=== PATIENT | male | born 1935 | race American Indian/Alaskan Native ===

== ENCOUNTER 2016-12-11 19:44 | Inpatient (IN) | payer MEDICARE, OTHER ==
[2016-12-11 20:18] VITALS: BMI 23.7
[2016-12-11 21:03] LABS: ADD MANUAL DIFF? NO
[2016-12-11] MEDS: Sodium Chloride 0.9% 1,000 ML IV SCH (21:04)
[2016-12-11 21:16] LABS: BILIRUBIN,TOTAL 0.7 mg/dL (0.2-1.3); CALCIUM 9.9 mg/dL (8.4-10.5); POTASSIUM 4.3 mmol/L (3.6-5.0); TOTAL PROTEIN 8.2 g/dL (5.8-8.3)
[2016-12-11] MEDS ORDERED: TraMADol/Apap 37.5/325 mg Tab PO STA (21:20)
[2016-12-11 21:28] LABS: BASO # 0.02 K/mm3 (0.0-2.0); BASO % 0.5 % (0.0-3.0); EOS # 0.1 (0.0-0.7); EOS % 1.3 % (1.5-5.0); GRAN # 2.54 (1.4-6.5); GRAN % 67.8 % (50.0-68.0); LYMPH # 0.9 (1.2-3.4); LYMPH % 22.7 % (22.0-35.0); MEAN CELL VOLUME 81.5 fL (80.0-105.0); MEAN CORPUSCULAR HEMOGLOBIN 26.9 pg (25.0-35.0); MEAN CORPUSCULAR HGB CONC 32.9 g/dl (31.0-37.0); MEAN PLATELET VOLUME 9.3 fl (7.0-11.0); MONO # 0.3 (0.1-0.6); MONO % 7.7 % (1.0-6.0); PLATELET COUNT 296 10^3/uL (120.0-450.0); RED CELL DISTRIBUTION WIDTH 15.4 % (11.5-14.5); TROPONIN I 0.02 ng/mL; WHITE BLOOD COUNT 3.8 10^3/ul (4.5-11.0)
--- NOTE | 2016-12-11 23:39 | ED PDOC ---
Arrival/HPI - General Chief Complaint: Pain, Chronic Time Seen by Provider: 12/11/16 19:51 Historian: Patient - History of Present Illness Narrative History of Present Illness (Text): 12/11/16 23:36 Abel Keller is a 81 year old male, whose past medical history includes hypertension, diabetes, CAD and arthritis, presents to the emergency department complaining of generalized weakness and decreased appetite for past 4 days. Patient also complains of arthritic shoulder and back pain. Denies any fever, chills, headache, dizziness, chest pain, difficulty breathing, nausea, vomiting , diarrhea, urinary symptoms, or any other complaints at this time. Time/Duration: < week (4 days ) Symptom Onset: Gradual Symptom Course: Unchanged Severity Level: Mild Context: Home Past Medical History - Provider Review Nursing Documentation Reviewed: Yes - Cardiac Hx Cardiac Disorders: Yes Hx Hypertension: Yes - Pulmonary Hx Respiratory Disorders: No - Neurological Hx Neurological Disorder: No - HEENT Hx HEENT Disorder: No - Renal Hx Renal Disorder: No - Endocrine/Metabolic Hx Endocrine Disorders: Yes Hx Diabetes Mellitus Type 2: Yes - Hematological/Oncological Hx Blood Disorders: No - Integumentary Hx Dermatological Disorder: No - Musculoskeletal/Rheumatological Hx Musculoskeletal Disorders: Yes Hx Arthritis: Yes - Gastrointestinal Hx Gastrointestinal Disorders: No - Genitourinary/Gynecological Hx Genitourinary Disorders: No - Psychiatric Hx Psychophysiologic Disorder: No Hx Substance Use: Yes - Anesthesia Hx Anesthesia: No Family/Social History - Physician Review Nursing Documentation Reviewed: Yes Family/Social History: No Known Family HX Smoking Status: Former Smoker Hx Alcohol Use: No Hx Substance Use: Yes Allergies/Home Meds Allergies/Adverse Reactions: Allergies No Known Allergies Allergy (Verified 12/11/16 20:07) Home Medications: Home Meds Medication Instructions Recorded Confirmed Atorvastatin Calcium 20 mg PO DAILY 12/11/16 12/11/16 Febuxostat [Uloric] 40 mg PO DAILY 12/11/16 12/11/16 Ferric Citrate [Auryxia] 210 mg PO DIN 12/11/16 12/11/16 Ferrous Sulfate [Feosol] 325 mg PO BID 12/11/16 12/11/16 Insulin Glargine,Hum.rec.anlog 300 unit SQ TID 12/11/16 12/11/16 [Beau Cavanaugh] Insulin Lispro [Humalog (Insulin 100 unit SQ TID 12/11/16 12/11/16 Lispro)] SITagliptin [Januvia] 25 mg PO DAILY 12/11/16 12/11/16 Sodium Bicarbonate Tab 650 mg PO DAILY 12/11/16 12/11/16 hydrALAZINE [hydralazine 10 mg PO BID 12/11/16 12/11/16 Hydrochloride] Review of Systems - Physician Review All systems were reviewed & negative as marked: Yes - Review of Systems Constitutional: Fatigue (generalized weakness ). absent: Fevers Respiratory: Normal. absent: SOB, Cough Cardiovascular: Normal. absent: Chest Pain, Palpitations Musculoskeletal: Arthralgias, Back Pain Neurological: Normal. absent: Headache, Dizziness Psychiatric: Normal Physical Exam Vital Signs Reviewed: Yes Vital Signs Temp Pulse Resp BP Pulse Ox 12/11/16 23:00 98.2 F 66 17 140/58 L 98 12/11/16 20:02 98.0 F 68 17 130/60 98 Temperature: Afebrile Blood Pressure: Normal Pulse: Regular Respiratory Rate: Normal Appearance: Positive for: Well-Appearing, Non-Toxic, Comfortable Pain Distress: None Mental Status: Positive for: Alert and Oriented X 3 Finger Stick Blood Glucose: 240 - Systems Exam Head: Present: Atraumatic, Normocephalic Pupils: Present: PERRL Extroacular Muscles: Present: EOMI Conjunctiva: Present: Normal Mouth: Present: Moist Mucous Membranes Neck: Present: Normal Range of Motion Respiratory/Chest: Present: Clear to Auscultation, Good Air Exchange. No: Respiratory Distress, Accessory Muscle Use Cardiovascular: Present: Regular Rate and Rhythm, Normal S1, S2. No: Murmurs Abdomen: Present: Normal Bowel Sounds. No: Tenderness, Distention, Peritoneal Signs Back: Present: Normal Inspection Upper Extremity: Present: Normal Inspection. No: Cyanosis, Edema Lower Extremity: Present: Normal Inspection. No: Edema Neurological: Present: GCS=15, CN II-XII Intact, Speech Normal Skin: Present: Warm, Dry, Normal Color. No: Rashes Psychiatric: Present: Alert, Oriented x 3, Normal Insight, Normal Concentration Medical Decision Making ED Course and Treatment: 12/11/16 23:41 Impression: A 81 year old male who presents to the emergency department complaining of generalized weakness, arthritic pain and decreased appetite for past 4 days. Plan: -- EKG -- Labs -- Chest X-ray -- IV fluids -- Ultracet -- Urinalysis -- Reassess and disposition Progress Notes: 12/11/16 23:42 Case discussed with who is aware and agrees with the plan to observe patient at Med/Surg for dehydration. Accepts patient under her service. 12/12/16 02:02 EKG reviewed by me: NSR @ 62 bpm.T wave abnormality, consider inferolateral ischemia. - Lab Interpretations Lab Results: 12/11/16 21:00 12/11/16 21:00 Lab Results 12/12/16 11:19: POC Glucose (mg/dL) > 500 H* 12/12/16 10:02: POC Glucose (mg/dL) > 500 H* 12/12/16 07:47: POC Glucose (mg/dL) > 500 H* 12/12/16 07:00: Hemoglobin A1c 9.7 H 12/12/16 07:00: Iron 56, TIBC 214 L, % Saturation 26 12/12/16 07:00: Triglycerides 98, Cholesterol 182, LDL Cholesterol Direct 77, HDL Cholesterol 63 H, Folate 9.1 12/11/16 21:00: Sodium 137, Potassium 4.3, Chloride 98, Carbon Dioxide 31, Anion Gap 12, BUN 43 H, Creatinine 1.8 H, Est GFR ( Amer) 44, Est GFR ( Non-Af Amer) 37, Random Glucose 146 H, Calcium 9.9, Total Bilirubin 0.7, AST 22 , ALT 17, Alkaline Phosphatase 108, Troponin I 0.02, Total Protein 8.2, Albumin 4.0, Globulin 4.2, Albumin/Globulin Ratio 1.0 L 12/11/16 21:00: WBC 3.8 L, RBC 4.17, Hgb 11.2 L, Hct 34.0 L, MCV 81.5, MCH 26.9 , MCHC 32.9, RDW 15.4 H, Plt Count 296, MPV 9.3, Gran % 67.8, Lymph % (Auto) 22.7, [place] % (Auto) 7.7 H, Eos % (Auto) 1.3 L, Baso % (Auto) 0.5, Gran # 2.54, Lymph # 0.9 L, [place] # 0.3, Eos # 0.1, Baso # 0.02 I have reviewed the lab results: Yes - RAD Interpretation Radiology Orders: 12/11/16 20:25 CHEST PORTABLE [RAD] Stat - EKG Interpretation Interpreted by ED Physician: Yes Type: 12 lead EKG - Medication Orders Current Medication Orders: Acetaminophen (Tylenol 325mg Tab) 650 mg PO Q4H PRN PRN Reason: Pain, Mild (1-3) Last Admin: 12/12/16 16:35 Dose: 650 mg Re-Assess: MAR Pain/Vitals Document 12/12/16 17:35 VS (Rec: 12/12/16 17:36 VS [place] [id number]) Pain Reassessment Is This A Pain ReAssessment? Yes Presence of Pain Presence of Pain No Atorvastatin Calcium (Lipitor) 20 mg PO DAILY [facility] Last Admin: 12/13/16 11:05 Dose: 20 mg Famotidine (Pepcid) 40 mg PO HS [facility] Last Admin: 12/13/16 21:47 Dose: 40 mg Ferric Citrate (Auryxia) 210 mg PO DIN [facility] Last Admin: 12/13/16 17:27 Dose: 210 mg Ferrous Sulfate (Feosol) 324 mg PO BID [facility] Last Admin: 12/13/16 17:27 Dose: 324 mg Hydralazine HCl (Apresoline) 10 mg PO BID [facility] Last Admin: 12/13/16 17:28 Dose: 10 mg Dextrose/Sodium Chloride (Dextrose 5%/0.45% Ns 1000 Ml) 1,000 mls @ 100 mls/hr IV .Q10H [facility] Last Admin: 12/13/16 21:42 Dose: 100 mls/hr Insulin Detemir (Levemir) 10 unit SC [facility] Last Admin: 12/13/16 21:46 Dose: 10 unit Insulin Human Lispro (Humalog Low) 0 units SC [facility] PRN Reason: Protocol Last Admin: 12/13/16 21:47 Dose: Not Given Non-Admin Reason: Blood Sugar Parameter Non-Formulary Medication (Febuxostat [Uloric]) 40 mg PO DAILY [facility] Last Admin: 12/13/16 11:06 Dose: Sitagliptin Phosphate (Januvia) 25 mg PO DAILY [facility] Last Admin: 12/13/16 11:05 Dose: 25 mg Discontinued Medications Dextrose (Dextrose 50% Inj) 50 ml IVP ONCE ONE Stop: 12/12/16 21:45 Last Admin: 12/12/16 21:54 Dose: 50 ml Dextrose (Dextrose 50% Inj) Confirm Administered Dose 50 ml .ROUTE .STK-MED ONE Stop: 12/13/16 04:15 Last Admin: 12/13/16 04:52 Dose: Dextrose (Dextrose 50% Inj) 50 ml IVP ONCE ONE Stop: 12/13/16 04:08 Last Admin: 12/13/16 04:49 Dose: 50 ml Dextrose (Dextrose 50% Inj) 50 ml IVP ONCE ONE Stop: 12/13/16 09:32 Last Admin: 12/13/16 09:35 Dose: 25 ml Sodium Chloride (Sodium Chloride 0.9%) 1,000 mls @ 80 mls/hr IV .[id number] [facility] Last Admin: 12/12/16 08:13 Dose: 80 mls/hr Sodium Chloride (Sodium Chloride 0.9%) 1,000 mls @ 100 mls/hr IV .Q10H STA Stop: 12/12/16 10:38 Last Admin: 12/12/16 00:47 Dose: 100 mls/hr Sodium Chloride (Sodium Chloride 0.9%) 1,000 mls @ 125 mls/hr IV .Q8H [facility] Last Admin: 12/12/16 17:34 Dose: 125 mls/hr Sodium Chloride (Sodium Chloride 0.9%) 1,000 mls @ 50 mls/hr IV .Q20H [facility] Insulin Detemir (Levemir) 10 unit SC BID [facility] Last Admin: 12/12/16 09:35 Dose: Insulin Detemir (Levemir) 60 unit SC HS [facility] Last Admin: 12/12/16 22:15 Dose: Not Given Non-Admin Reason: Blood Sugar Parameter Insulin Human Lispro (Humalog) 30 units SC AC [facility] Last Admin: 12/13/16 08:13 Dose: Not Given Non-Admin Reason: Blood Sugar Parameter Insulin Human Regular (Humulin R Low) 0 units SC [facility] PRN Reason: Protocol Last Admin: 12/12/16 08:00 Dose: 1 units Insulin Human Regular (Humulin R High) 0 units SC [facility] PRN Reason: Protocol Last Admin: 12/12/16 12:04 Dose: 15 units Insulin Human Regular (Humulin R) 10 units SC [facility] Stop: 12/12/16 10:37 Last Admin: 12/12/16 10:45 Dose: 10 units Lorazepam (Ativan) Confirm Administered Dose 2 mg .ROUTE .STK-MED ONE Stop: 12/13/16 04:36 Last Admin: 12/13/16 04:44 Dose: Lorazepam (Ativan) 0.5 mg IVP ONCE ONE PRN Reason: Protocol Stop: 12/13/16 04:30 Last Admin: 12/13/16 04:44 Dose: 0.5 mg Re-Assess: Reassess Psych Meds Document 12/13/16 05:14 KRISTINE (Rec: 12/13/16 05:38 KRISTINE [id number]) Reassess Psych Med Effective Tramadol/Acetaminophen (Ultracet 37.5/325 Mg) 1 tab PO ONCE STA Stop: 12/11/16 21:21 Last Admin: 12/11/16 21:51 Dose: 1 tab - Scribe Statement The provider has reviewed the documentation as recorded by the Christine Mandujano Provider Attestation: All medical record entries made by the Christine were at my direction and personally dictated by me. I have reviewed the chart and agree that the record accurately reflects my personal performance of the history, physical exam, medical decision making, and the department course for this patient. I have also personally directed, reviewed, and agree with the discharge instructions and disposition. Disposition/Present on Arrival - Present on Arrival Any Indicators Present on Arrival: No History of DVT/PE: No History of Uncontrolled Diabetes: No Urinary Catheter: No History of Decub. Ulcer: No History Surgical Site Infection Following: None - Disposition Have Diagnosis and Disposition been Completed?: Yes Diagnosis: Weakness Disposition: HOSPITALIZED Disposition Time: 23:30 Condition: GOOD
[2016-12-12] MEDS ORDERED: Sodium Chloride 0.9% 1,000 ML IV STA (00:39)
[2016-12-12] MEDS: Ferric Citrate 210 mg (AURYXIA) Tab. PO SCH ×2 (02:00→16:35)
[2016-12-12] MEDS ORDERED: Insulin Reg-LOW-Coverage SC SCH (07:30)
[2016-12-12 07:53] LABS: IRON 56 ug/dL (45-180)
[2016-12-12] MEDS: Sodium Chloride 0.9% 1,000 ML IV SCH ×3 (08:13→17:34)
[2016-12-12] MEDS: Insulin Detemir 100 units/ml Vial (Levemir) SC SCH ×4 (08:21→22:15)
--- NOTE | 2016-12-12 09:09 | RAD ---
HISTORY: weakness COMPARISON: No prior. FINDINGS: LUNGS: No active pulmonary disease. PLEURA: No significant pleural effusion identified, no pneumothorax apparent. CARDIOVASCULAR: Normal. OSSEOUS STRUCTURES: No significant abnormalities. VISUALIZED UPPER ABDOMEN: Normal. OTHER FINDINGS: Mild aortic tortuosity IMPRESSION: No active disease.
[2016-12-12] MEDS: Non Formulary Medication (Febuxostat [Uloric] 40 MG) PO SCH (09:33)
[2016-12-12] MEDS ORDERED: Insulin Regular 1 UNITS/0.01 ML ML SC STA (10:36)
[2016-12-12] MEDS ORDERED: Insulin Reg-HIGH-Coverage SC SCH (11:30)
[2016-12-12 12:25] LABS: HEMATOCRIT 33.3 % (42.0-52.0); MEAN CELL VOLUME 82.2 fL (80.0-105.0); MEAN CORPUSCULAR HEMOGLOBIN 26.4 pg (25.0-35.0); MEAN CORPUSCULAR HGB CONC 32.1 g/dl (31.0-37.0); MEAN PLATELET VOLUME 9.2 fl (7.0-11.0); RED CELL DISTRIBUTION WIDTH 15.4 % (11.5-14.5); WHITE BLOOD COUNT 4.5 10^3/ul (4.5-11.0)
[2016-12-12 12:33] LABS: CALCIUM 9.3 mg/dL (8.4-10.5); POTASSIUM 4.4 mmol/L (3.6-5.0)
[2016-12-12 13:47] LABS: FOLATE 9.1 ng/mL
--- NOTE | 2016-12-12 16:14 | CON ---
DATE: 12/12/2016 ROOM: 372 HISTORY OF PRESENT ILLNESS: This is a 81-year-old male with known history of type 2 insulin-requirin g diabetes, presenting here with generalized body weakness and progressive bouts of dizziness and lig htheadedness and is being referred now for diabetic evaluation because of marked hyperglycemic accele rations and glucose levels persistently over 500 today as noted. PAST MEDICAL HISTORY: As mentioned above, history of type 2 insulin-requiring diabetes on a combinat ion of very high dose basal and bolus insulin regimen as noted. However, the exact dose regimen and has yet to be verified with the pharmacy as noted. He is apparently using Humalog given as 100 units t.i.d. with meals and Toujeo at 300 units t.i.d., which is quite unlikely as this is really only giv en once a day at bedtime. This dose regimen will be verified with the pharmacy. History of hyperten tony and dyslipidemia. History of coronary artery disease with previous myocardial infarction. Hist ory of generalized osteoarthritis with severe low back pain as noted and also severe knee arthritis. FAMILY HISTORY: Positive for diabetes and hypertension. SOCIAL HISTORY: The patient has supportive family. No known substance use. REVIEW OF SYSTEMS: As mentioned above. Has been noted by the family to have increasing bouts of gen eralized body weakness, hypersomnolence and lethargy as noted. Also has episodic bouts of dizziness and lightheadedness, worse on the day of admission. No chest pains or palpitations or PNDs. His ora l intake is variable and suboptimal with nausea, dyspepsia, and vague upper abdominal pains. Also ad mits to recent anorexia and progressive weight loss as noted. Moreover admits to marked polyuria, no cturia, polydipsia, and about a 10 pound ____ weight loss. PHYSICAL EXAMINATION: GENERAL: This is an average built male in no apparent distress. VITAL SIGNS: Blood pressure of 150/90, pulse of 100 beats per minute and regular, temperature 98, re spirations 20. Height is 5 feet 11 inches. Weight is 170 pounds. HEENT: Head normocephalic. Eyes anicteric with pink conjunctivae. Fundoscopy not possible at this time. Ears, nose and throat otherwise normal. NECK: Supple. Thyroid gland is normal size. No carotid bruits or cervical adenopathy. CARDIOPULMONARY: An adynamic precordium. S1, S2 is rapid and regular. LUNGS: Clear to auscultation. ABDOMEN: Flat, soft with positive bowel sounds. EXTREMITIES: No peripheral edema. Pulses are +2 bilaterally. LABORATORY DATA: The chemistry showed a BUN of 41, sodium 134, potassium 4.4, chloride 98, CO2 of 24 , glucose 518 and creatinine 1.7. His glucose levels have ranged from 418 to over 500 mg/dL. His he moglobin A1c is 9.7%, indicative of suboptimal metabolic control of his diabetic condition. ASSESSMENT: This is a 81-year-old male with uncontrolled and decompensated type 2 insulin-requiring diabetes, presenting here with hyperosmolar hyperglycemic state and dehydration with prerenal azotemi a and spurious hyponatremia related to a subtherapeutic insulin regimen as noted. Moreover, there is a question as to the exact accuracy of his dosing regimen as he is apparently on a very high dose ba agus and bolus insulin regimen as per the medication reconciliation form, but this has yet to be verif ied with his participating pharmacy otherwise. Plan of management was discussed with the patient and staff. We will modify his current insulin regimen and switch him over to a more physiologic drug co mbination with Levemir given as 60 units subQ at bedtime daily to start tonight. We will also add Hu malog given as 30 units subQ t.i.d. before meals to start at dinnertime today as ordered. We will mo dify the coverage scale to obviate hypoglycemia and detailed orders have been given for Humalog cover age to be given for glucose above 300 as ordered. We will increase the intravenous hydration to opti ashely his fluid and electrolyte losses from the increased osmotic diuresis. We will increase the intr avenous fluids to 125 mL per hour as ordered. We will obtain serial chemistries and supplement accor dingly as needed. We will follow. Raine Friedman MD cc: [id number] TT: 12/12/2016 16:12:56 Confirmation # [id number] Dictation # [id number]
[2016-12-12] MEDS: Insulin Lispro (humaLOG) LOW Coverage SC SCH ×2 (16:35→22:10)
[2016-12-12] MEDS: Insulin Lispro 1 UNITS/0.01 ML SC SCH (16:35)
--- NOTE | 2016-12-12 20:33 | HP ---
CHIEF COMPLAINT: Decreased appetite, fatigue, tired, not feeling very well. HISTORY OF PRESENT ILLNESS: The patient is a 81-year-old male whose past medical history includes hypertension, diabetes mellitus, coronary artery disease, arthritis, came to the Emergency Department complaining of generalized weakness and decreased appetite for about 4 days. The patient also complaining about shoulder and back pain. Denies any fever, chills, headache, dizziness, chest pain, difficulty breathing, nausea, vomiting, diarrhea, urinary symptoms or any other complaints. No fever, no chills. PAST MEDICAL HISTORY: Hypertension, diabetes mellitus, arthritis. FAMILY HISTORY: Father and mother noncontributory. HABITS: Former smoker, quit. Alcohol abuse. No substance abuse. ALLERGIES: The patient is not allergic to any medications. HOME MEDICATIONS: Calcium, ferric citrate, insulin, Januvia, sodium bicarbonate , hydralazine. REVIEW OF SYSTEMS: The patient is seen and examined on the bedside. and 2 sons were standing on the bedside also. Looks comfortable. Still complaining about generalized weakness, pain, sugar is going up and down. No nausea, vomiting, or diarrhea. No hematuria or hematochezia. Feeling generalized weak. No fever, no chills. No chest pain, no palpitation, no arthralgia. No back pain. No headache, no dizziness. PHYSICAL EXAMINATION: VITAL SIGNS: Temperature 97.2, pulse 72, respiratory rate 20, blood pressure 163/72, pulse oximetry 88. HEENT: Head normocephalic, atraumatic. Eyes: PERRLA. Extraocular muscles intact. Conjunctivae are clear. Nose patent. Mucous membranes moist. NECK: Supple. No carotid bruit, JVD or thyromegaly. CHEST: Bilaterally symmetrical. HEART: S1, S2 positive. LUNGS: Clear to auscultation. ABDOMEN: Soft. Bowel sounds positive. No organomegaly. EXTREMITIES: No edema, no cyanosis. NEUROLOGIC: The patient is awake, alert, moving all 4 extremities. No focal deficits. LABORATORY DATA: White blood cells 3.8, hemoglobin 11.2, hematocrit 34.0, platelets 296. Sodium 137, potassium 4.3, BUN 43, creatinine noted, glucose 146. ASSESSMENT AND PLAN: The patient is a 81-year-old male with leukopenia, anemia , diabetes mellitus, renal insufficiency, is admitted, found that the patient has hyperglycemia. Endocrinology consult called. Seen by director of learning. Seen by Dr. Raine Friedman, director of learning, adjusted the medications. history of diabetes mellitus and hypertension. Discussion done with both son and . All questions answered. The patient started on insulin and put on fingerstick test on sliding scale. Blood workup ordered by Dr. Raine Friedman. Continue hydralazine, ferric acid, Uloric for gouty arthritis. Iron for anemia. Continue insulin. Ordered physical therapy. Consult called. Gastrointestinal and deep venous thrombosis prophylaxis. Repeat labs. We will follow up. Gricelda Anderson MD cc: [id number] TT: 12/12/2016 20:33:06 domo GARIBAY
[2016-12-12] MEDS ORDERED: Dextrose 50% SYRINGE Inj (50 ml) IVP ONE (21:44)
--- NOTE | 2016-12-12 23:01 | CARD ---
APPROVED REPORT EKG Measurement Heart [id number] <Conclusion> Normal sinus rhythm T wave abnormality, consider inferolateral ischemia Abnormal ECG
[2016-12-13] MEDS ORDERED: Dextrose 50% SYRINGE Inj (50 ml) IVP ONE ×2 (04:07→09:31)
[2016-12-13] MEDS ORDERED: Dextrose 50% SYRINGE Inj (50 ml) ONE (04:14)
--- NOTE | 2016-12-13 04:34 | CP.PCM.PN ---
Subjective - Date & Time of Evaluation Date of Evaluation: 12/13/16 Time of Evaluation: 04:32 - Subjective Subjective: Patient was seen at bedside. He was Pulling out tubing, agitated.Fighting. When asked a question if he has any symptoms , does not answer question. Had hypoglycemia. Initially blood glucose was 47 mg %, second time it was 37 mg %. Two ampoules of dextrose 50 cc IV was given. Wrist + HERMELINDO restraint ordered. Medical record was reviewed. This 81 year old male was admitted with generalized weakness, anorexia of 4 days duration,anemia, renal insufficiency. Has PMH of HTN,DM,arthritis, former smoker, alcohol abuser. Objective - Vital Signs/Intake and Output Vital Signs (last 24 hours): Temp Pulse Resp BP Pulse Ox 97.6 F 82 18 132/80 95 12/12/16 16:00 12/12/16 17:30 12/12/16 16:00 12/12/16 17:30 12/12/16 16:00 Intake and Output: 12/12/16 12/13/16 18:59 06:59 Intake Total 960 Output Total 450 Balance 510 - Medications Medications: Current Medications Acetaminophen (Tylenol 325mg Tab) 650 mg PO Q4H PRN PRN Reason: Pain, Mild (1-3) Last Admin: 12/12/16 16:35 Dose: 650 mg Atorvastatin Calcium (Lipitor) 20 mg PO DAILY [facility] Last Admin: 12/12/16 09:32 Dose: 20 mg Famotidine (Pepcid) 40 mg PO HS [facility] Last Admin: 12/12/16 21:13 Dose: 40 mg Ferric Citrate (Auryxia) 210 mg PO DIN [facility] Last Admin: 12/12/16 16:35 Dose: 210 mg Ferrous Sulfate (Feosol) 324 mg PO BID [facility] Last Admin: 12/12/16 17:36 Dose: 324 mg Hydralazine HCl (Apresoline) 10 mg PO BID [facility] Last Admin: 12/12/16 17:30 Dose: 10 mg Sodium Chloride (Sodium Chloride 0.9%) 1,000 mls @ 125 mls/hr IV .Q8H [facility] Last Admin: 12/12/16 17:34 Dose: 125 mls/hr Insulin Detemir (Levemir) 60 unit SC [facility] Insulin Human Lispro (Humalog Low) [address] [facility] PRN Reason: Protocol Last Admin: 12/12/16 16:35 Dose: 4 units Insulin Human Lispro (Humalog) 30 units SC AC [facility] Last Admin: 12/12/16 16:35 Dose: 30 units Non-Formulary Medication (Febuxostat [Uloric]) 40 mg PO DAILY [facility] Last Admin: 12/12/16 09:33 Dose: Not Given Sitagliptin Phosphate (Januvia) 25 mg PO DAILY [facility] Last Admin: 12/12/16 09:33 Dose: 25 mg - Labs Labs: 12/12/16 12:21 12/12/16 12:21 - Constitutional Appears: Well, No Acute Distress - Head Exam Head Exam: ATRAUMATIC, NORMAL INSPECTION, NORMOCEPHALIC - Eye Exam Eye Exam: Normal appearance - ENT Exam ENT Exam: Normal External Ear Exam - Neck Exam Neck Exam: Normal Inspection - Respiratory Exam Respiratory Exam: NORMAL BREATHING PATTERN - Cardiovascular Exam Cardiovascular Exam: absent: JVD - GI/Abdominal Exam GI & Abdominal Exam: absent: Distended - Rectal Exam Rectal Exam: Deferred - Extremities Exam Extremities Exam: Normal Inspection - Back Exam Back Exam: NORMAL INSPECTION - Neurological Exam Neurological Exam: Altered - Psychiatric Exam Psychiatric exam: Agitated - Skin Skin Exam: Normal Color Assessment and Plan - Assessment and Plan (Free Text) Assessment: Hypoglycemia. Altered mental status. Agitation. DM. HTN. Arthritis. Plan: D50 % 55 CC IV x 2. Wrist and HERMELINDO restraints order. Continue present management.
[2016-12-13 07:29] LABS: HEMATOCRIT 28.6 % (42.0-52.0); MEAN CELL VOLUME 81.3 fL (80.0-105.0); MEAN CORPUSCULAR HEMOGLOBIN 26.4 pg (25.0-35.0); MEAN CORPUSCULAR HGB CONC 32.5 g/dl (31.0-37.0); MEAN PLATELET VOLUME 9.3 fl (7.0-11.0); RED CELL DISTRIBUTION WIDTH 15.6 % (11.5-14.5); WHITE BLOOD COUNT 4.8 10^3/ul (4.5-11.0)
[2016-12-13 07:38] LABS: IRON 59 ug/dL (45-180)
[2016-12-13 07:45] LABS: ALB/GLOB RATIO 0.9 (1.1-1.8); ALKALINE PHOSPHATASE 70 U/L (38-133); ALT/SGPT 21 U/L (7-56); AST/SGOT 23 U/L (15-59); BILIRUBIN,TOTAL 0.5 mg/dL (0.2-1.3); BLOOD UREA NITROGEN 26 mg/dL (7-21); CALCIUM 8.6 mg/dL (8.4-10.5); CARBON DIOXIDE 27 mmol/L (21-33); CHLORIDE 105 mmol/L (98-107); CHOLESTEROL 137 mg/dL (130-200); GFR AFRICAN-AMERICAN > 60; GLUCOSE,RANDOM 75 mg/dL (70-110); PHOSPHOROUS 2.7 mg/dL (2.5-4.5); POTASSIUM 3.2 mmol/L (3.6-5.0); SODIUM 140 mmol/L (132-148); TOTAL PROTEIN 6.4 g/dL (5.8-8.3)
[2016-12-13 07:48] LABS: T4 6.5 ug/dL (5.5-11.0)
[2016-12-13 08:02] LABS: THYROID STIMULATING HORMONE 4.05 mIU/mL (0.46-4.68)
[2016-12-13] MEDS: Insulin Lispro 1 UNITS/0.01 ML SC SCH (08:13)
[2016-12-13] MEDS: Insulin Lispro (humaLOG) LOW Coverage SC SCH ×5 (08:13→21:47)
[2016-12-13 09:38] LABS: PH,URINE 5.5 (4.7-8.0); URINE APPEARANCE CLEAR (CLEAR); URINE BILIRUBIN NEGATIVE (NEGATIVE); URINE BLOOD TRACE-INTACT (NEGATIVE); URINE COLOR YELLOW (YELLOW); URINE GLUCOSE (UA) 100 mg/dL (NEGATIVE); URINE KETONE NEGATIVE (NEGATIVE); URINE LEUKOCYTE ESTERASE NEGATIVE Leu/uL (NEGATIVE); URINE PROTEIN NEGATIVE mg/dL (<30 mg/dL); URINE UROBILINOGEN 0.2 E.U./dL (<1 E.U./dL)
[2016-12-13 09:46] LABS: URINE BACTERIA TRACE (NEG); URINE RBC 0 - 2 /hpf (0-2); URINE WBC 0 - 2 /hpf (0-6)
[2016-12-13] MEDS ORDERED: Sodium Chloride 0.9% 1,000 ML IV SCH (10:13)
[2016-12-13] MEDS: Non Formulary Medication (Febuxostat [Uloric] 40 MG) PO SCH (11:06)
[2016-12-13] MEDS: Dextrose 5%/0.45% NS 1,000 ML IV SCH ×2 (12:04→21:42)
--- NOTE | 2016-12-13 12:23 | CON ---
DATE: 12/13/2016 CHIEF COMPLAINT AND HISTORY OF PRESENT ILLNESS: This is a 81-year-old male who has a past medical hi story of hypertension, diabetes, coronary artery disease, osteoarthritis who is coming in to the hosp ital complaining of weakness. The patient has not been eating well. He has lost his appetite. He h as been complaining more of pain in the back and the shoulders. He was confused this morning, is not able to give a good history. Most of the information was taken from the patient's chart, medical re cord, and talking to the staff and the nurse. REVIEW OF SYMPTOMS: Limited. ALLERGIES: No known drug allergies. HOME MEDICATIONS: Hydrochlorothiazide, Januvia, sodium bicarb, lisinopril, iron citrate, iron sulfat e, febuxostat, atorvastatin. PAST MEDICAL HISTORY: As above. FAMILY HISTORY: Unable to assess. SOCIAL HISTORY: Unable to assess. PHYSICAL EXAMINATION: VITAL SIGNS: Temperature is 97.6, pulse of 82. Blood pressure is 132/80, respirations 18, O2 satura tion 95%. Height is 5 feet 11 inches. Weight is 170 pounds. BMI is 27. GENERAL: The patient is lying in bed, flat, and in no apparent distress. HEAD AND NECK EXAM: Atraumatic, normocephalic. Conjunctivae are pink. Throat clear and mouth with moist mucosa. Oropharynx benign. EYES: Extraocular movements are intact. PERRLA. NECK: Supple. No JVD, thyromegaly, or adenopathy. No bruits. HEART: S1 and S2 regular rate and rhythm. No murmurs, rubs, or gallops. LUNGS: Clear to auscultation bilaterally. No wheezing rales or rhonchi appreciated. No retraction s on exam. ABDOMEN: Soft, nontender, nondistended. Bowel sounds are positive in all quadrants. No rebound. No hepatosplenomegaly. EXTREMITIES: No cyanosis, clubbing, or edema. NEUROLOGIC: Unable to fully assess. PSYCHIATRIC: Unable to assess. : No CVA tenderness VASCULAR: 2+ pulses in carotid and pedal pulses. SKIN: No erythema or abnormal nodules noted. SPINE: Normal curvature. LYMPHADENOPATHY: No anterior cervical or posterior cervical adenopathy. No inguinal adenopathy. EKG shows sinus rhythm at 62. QTC is 452. Chest x-ray shows no active disease. LABORATORY DATA: White count of 3.8, hemoglobin 11.2. Platelet count is 296. Chemistry shows a sod ium of 140, potassium 3.2. Initial creatinine was 1.8 on admission. Urine shows nitrites are negati ve. Bilirubin is negative. ASSESSMENT: 1. Acute kidney injury. 2. Diabetes type 2. 3. Hypertension. 4. Dyslipidemia. PLAN: The patient is currently comfortable. The patient is on Uloric probably for hyperuricemia or gout. He is on Januvia for his diabetes. He is on Lipitor for dyslipidemia, and this will be lore nued. He was given aggressive IV hydration with IV fluids. His normal saline - I will decrease his normal saline. His creatinine has improved. He will have repeat blood work done. I will get urine to check for proteinuria. Thank you for allowing me to participate in the care of your patient. To Javier MD cc: [id number] TT: 12/13/2016 12:22:44 Confirmation # [id number] Dictation # [id number] vicky
[2016-12-13 13:26] LABS: FOLATE 5.4 ng/mL
--- NOTE | 2016-12-13 16:55 | PN ---
DATE: 12/13/2016 This is a 81-year-old male with recent uncontrolled type 2 insulin-requiring diabetes, now being foll owed closely for metabolic management. He clearly has extremes of glycemic fluctuations with initial presentation of marked hyperglycemic accelerations and hyperosmolar hyperglycemic state as noted. [place] received high dose insulin therapy and overnight developed symptomatic hypoglycemia because of the patient's refusal to partake of his meal trays as given. His glucose overnight was actually 47 mg/dL with a repeat glucose early this morning of 114 mg/dL. His latest chemistries include a BUN of 26, sodium 140, potassium 3.2, chloride 105, CO2 27, glucose 75, and creatinine 1.2. His hemoglobin A1c is 9.8%, which is clearly elevated and indicative of suboptimal metabolic control of his diabetic con dition, even prior to this admission. Repeat glucose levels today have ranged from 70 to 158 and 196 mg/dL. There was a brief lowering of the glucose levels down to 48 at 9:00 this morning as noted. He has still refused to partake of his meals today as per the nursing staff and so the IV fluids have been changed to D5 and half normal saline to run at 125 mL per hour to optimize his fluid and electr olyte losses. We will obtain serial chemistries and supplement accordingly as needed. We will also modify his insulin regimen and discontinue the Humalog given before each meal as ordered. We will co ntinue the low-dose correction scale using Humalog insulin as given. We will also lower the Levemir to 10 units subQ at bedtime daily to start tonight. We will continue his Januvia given as 25 mg once daily in the morning as ordered. We will titrate incrementally as indicated to optimize metabolic c ontrol. We will follow. Raine Friedman MD cc: [id number] TT: 12/13/2016 16:54:51 Confirmation # [id number] Dictation # [id number] ln
[2016-12-13] MEDS: Ferric Citrate 210 mg (AURYXIA) Tab. PO SCH (17:27)
[2016-12-13] MEDS ORDERED: Insulin Detemir 100 units/ml Vial (Levemir) SC SCH (22:00)
--- NOTE | 2016-12-14 06:18 | PN ---
DATE: 12/13/2016 SUBJECTIVE: The patient was seen and examined on the bedside, looks comfortable. No nausea, vomitin g, or diarrhea. No hematuria or hematochezia. No fever, no chills. Still does not have good appeti te, is complaining about pains and aches. PHYSICAL EXAMINATION: VITAL SIGNS: Temperature 97.6, pulse 82, blood pressure 130/80, respiratory rate 18. HEENT: Head normocephalic, atraumatic. Eyes: PERRLA. Extraocular muscles intact. Conjunctivae cl ear. Nose patent. Mucous membranes moist. NECK: Supple. No carotid bruit. No JVD or thyromegaly. CHEST: Bilaterally symmetrical. HEART: S1, S2 positive. LUNGS: Clear to auscultation. ABDOMEN: Soft. Bowel sounds present. No organomegaly. EXTREMITIES: No edema, no cyanosis. NEUROLOGIC: The patient is awake, alert, moving all 4 extremities. MEDICATIONS: Hydralazine, Januvia, sodium bicarbonate, lisinopril, iron sulfate, iron citrate, atorv astatin. LABORATORY DATA: White blood cells 3.8, hemoglobin 11.2, platelets 296. Sodium 140, potassium 3.2, creatinine 1.8. ASSESSMENT AND PLAN: The patient has acute kidney injury, diabetes mellitus type 2, hypertension, dy slipidemia. Diabetes is very uncontrolled. That is why endocrinological consult called with Dr. Temitope Friedman and nephrology consult called with Dr. To Javier. Appreciated his notes. The patient h as hyperuricemia or gouty arthritis. Getting Januvia for diabetes, Lipitor for hypercholesterolemia. The patient got aggressive hydration with IV fluids with normal saline. Dr. To Javier decrea sed the normal saline. Potassium is getting improved. Repeat labs. Gastrointestinal and deep venou s thrombosis prophylaxis. We will follow up. Gricelda Anderson MD cc: [id number] TT: 12/14/2016 06:18:00 Confirmation # [id number] Dictation # [id number] tn
--- NOTE | 2016-12-14 21:49 | PN ---
DATE: 12/14/2016 ROOM: 372 SUBJECTIVE: This is a 81-year-old male with extremes of glycemic fluctuations ranging from hyperglyc emic accelerations to hypoglycemia and once again to extremes of hyperglycemic values today as noted. His glucose levels have ranged from 242 to 448 mg/dL. His latest chemistries showed a BUN of 26, s odium 140, potassium 3.2, chloride 105, CO2 27, glucose 75, and creatinine 1.2. His hemoglobin A1c i s 9.8%. So at this time, we will once again modify his basal and bolus insulin regimen and increase the Levemir to 20 units subQ at bedtime daily to start tonight. We will also increase the Humalog to 20 units subQ t.i.d. before meals to start today at dinnertime as ordered. We will continue the low -dose correction scale using Humalog insulin as given. However, by tomorrow morning as he is extreme ly labile with very variable oral intake, we will lower the Humalog to 12 units subQ t.i.d. before me als as given. We will obtain serial chemistries and supplement accordingly as needed. We will follterry w. Raine Friedman MD cc: [id number] TT: 12/14/2016 21:49:22 Confirmation # [id number] Dictation # [id number] jn
[2016-12-14] MEDS: Dextrose 5%/0.45% NS 1,000 ML IV SCH (21:58)
[2016-12-14] MEDS: Insulin Lispro (humaLOG) LOW Coverage SC SCH (21:59)
--- NOTE | 2016-12-15 05:06 | CP.PCM.PN ---
Subjective - Date & Time of Evaluation Date of Evaluation: 12/15/16 Time of Evaluation: 05:04 - Subjective Subjective: Nurse requests to renew [place] restraint order. Patient was seen at bedside. He is awake. Does not answer questions , although tells that he is fine. Medical record was reviewed. 81 year old male was admitted with generalized weakness, anorexia of 4 days duration,anemia, renal insufficiency. Has PMH of HTN, DM II ,arthritis, former smoker, alcohol abuser. Objective - Vital Signs/Intake and Output Vital Signs (last 24 hours): Temp Pulse Resp BP Pulse Ox 98.4 F 80 20 170/90 H 99 12/14/16 16:00 12/14/16 16:00 12/14/16 16:00 12/14/16 16:00 12/14/16 16:00 Intake and Output: 12/14/16 12/15/16 18:59 06:59 Intake Total 660 Output Total 550 Balance 110 - Medications Medications: Current Medications Acetaminophen (Tylenol 325mg Tab) 650 mg PO Q4H PRN PRN Reason: Pain, Mild (1-3) Last Admin: 12/12/16 16:35 Dose: 650 mg Atorvastatin Calcium (Lipitor) 20 mg PO DAILY [facility] Last Admin: 12/13/16 11:05 Dose: 20 mg Famotidine (Pepcid) 40 mg PO HS [facility] Last Admin: 12/14/16 21:58 Dose: 40 mg Ferric Citrate (Auryxia) 210 mg PO DIN [facility] Last Admin: 12/13/16 17:27 Dose: 210 mg Ferrous Sulfate (Feosol) 324 mg PO BID [facility] Last Admin: 12/13/16 17:27 Dose: 324 mg Hydralazine HCl (Apresoline) 10 mg PO BID [facility] Last Admin: 12/13/16 17:28 Dose: 10 mg Dextrose/Sodium Chloride (Dextrose 5%/0.45% Ns 1000 Ml) 1,000 mls @ 100 mls/hr IV .Q10H [facility] Last Admin: 12/14/16 21:58 Dose: 100 mls/hr Insulin Detemir (Levemir) 24 unit SC HS [facility] Insulin Human Lispro (Humalog) 12 units SC AC [facility] Non-Formulary Medication (Febuxostat [Uloric]) 40 mg PO DAILY [facility] Last Admin: 12/13/16 11:06 Dose: Not Given Sitagliptin Phosphate (Januvia) 25 mg PO DAILY [facility] Last Admin: 12/13/16 11:05 Dose: 25 mg - Labs Labs: 12/13/16 06:45 12/13/16 06:45 - Constitutional Appears: Well, No Acute Distress - ENT Exam ENT Exam: Normal Exam, Normal External Ear Exam - Neck Exam Neck Exam: Normal Inspection - Respiratory Exam Respiratory Exam: NORMAL BREATHING PATTERN - Cardiovascular Exam Cardiovascular Exam: absent: JVD - GI/Abdominal Exam GI & Abdominal Exam: absent: Distended - Rectal Exam Rectal Exam: Deferred - Extremities Exam Extremities Exam: Normal Inspection - Back Exam Back Exam: NORMAL INSPECTION - Neurological Exam Neurological Exam: Altered - Psychiatric Exam Psychiatric exam: Normal Affect, Normal Mood - Skin Skin Exam: Normal Color Assessment and Plan - Assessment and Plan (Free Text) Assessment: Agitation. AMS. DM II. HTN. Arthritis. Plan: Wrist/HERMELINDO restraints . Continue present management.
[2016-12-15] MEDS: Insulin Detemir 100 units/ml Vial (Levemir) SC SCH ×2 (05:30→11:00)
[2016-12-15] MEDS ORDERED: Insulin Lispro 1 UNITS/0.01 ML SC SCH (07:30)
[2016-12-15] MEDS: Insulin Lispro 1 UNITS/0.01 ML SC SCH ×3 (07:40→17:25)
[2016-12-15 07:58] LABS: ALB/GLOB RATIO 0.9 (1.1-1.8); ALKALINE PHOSPHATASE 94 U/L (38-133); ALT/SGPT 21 U/L (7-56); AST/SGOT 26 U/L (15-59); BILIRUBIN,TOTAL 0.6 mg/dL (0.2-1.3); BLOOD UREA NITROGEN 17 mg/dL (7-21); CALCIUM 8.4 mg/dL (8.4-10.5); CARBON DIOXIDE 25 mmol/L (21-33); CHLORIDE 100 mmol/L (98-107); GFR AFRICAN-AMERICAN > 60; POTASSIUM 4.7 mmol/L (3.6-5.0); SODIUM 133 mmol/L (132-148); TOTAL PROTEIN 6.5 g/dL (5.8-8.3)
--- NOTE | 2016-12-15 08:28 | PN ---
DATE: 12/15/2016 SUBJECTIVE: The patient has no complaints of any chest pain. No shortness of breath or headaches. PHYSICAL EXAMINATION: VITAL SIGNS: Temperature is 98.4, pulse of 80, blood pressure 170/90, respirations 20. GENERAL: The patient comfortable, in no acute distress. HEENT: Anicteric sclerae. Moist mucosa. NECK: No JVD or adenopathy. CARDIAC: S1/S2. No murmurs. No rubs. Regular. RESPIRATORY: Clear to auscultation bilaterally. No wheezes, rales, or rhonchi. Good air entry. ABDOMEN: Bowel sounds are positive, soft, nontender, and nondistended. EXTREMITIES: No edema. Has 1+ pulses. LABORATORY DATA: White count of 4.8, hemoglobin 9.3, potassium is 3.2, creatinine is 1.2. ASSESSMENT: 1. Acute kidney injury, resolved. 2. Delirium. 3. Diabetes type 2. 4. Hypertension. 5. Dyslipidemia. PLAN: The patient is in [place] restraints. He has delirium. He was seen by me yesterday and was abl e to answer questions, but he was not able to write a note because of the computers not working in [facility]. The patient is receiving ferrous citrate. He is on insulin. He is going to continue [facility] for his diabetes. He is on Levemir for his diabetes as well. He is going to be on Lipito r for his dyslipidemia. The patient's potassium was low 2 days ago. We will repeat his blood work. To Javier MD cc: [id number] TT: 12/15/2016 08:28:03 Confirmation # [id number] Dictation # [id number] vicky
--- NOTE | 2016-12-15 09:02 | CT ---
PROCEDURE: CT HEAD WITHOUT CONTRAST. HISTORY: CONFUSION COMPARISON: None available. TECHNIQUE: Axial computed tomography images were obtained through the head/brain without intravenous contrast. Radiation dose: Total exam DLP = she 688.75 mGy-cm. This CT exam was performed using one or more of the following dose reduction techniques: Automated exposure control, adjustment of the mA and/or kV according to patient size, and/or use of iterative reconstruction technique. FINDINGS: HEMORRHAGE: No intracranial hemorrhage. BRAIN: No mass effect or edema. Cortical atrophy, periventricular small vessel disease VENTRICLES: Unremarkable. No hydrocephalus. CALVARIUM: Unremarkable. PARANASAL SINUSES: Unremarkable as visualized. No significant inflammatory changes. MASTOID AIR CELLS: Unremarkable as visualized. No inflammatory changes. OTHER FINDINGS: None. IMPRESSION: No acute intracranial abnormalities. No significant findings to account for the clinical presentation.
[2016-12-15] MEDS: Non Formulary Medication (Febuxostat [Uloric] 40 MG) PO SCH (09:47)
--- NOTE | 2016-12-15 12:33 | PN ---
DATE: 12/15/2016 ROOM: 372 This is a 81-year-old male with recent uncontrolled type 2 insulin-requiring diabetes with recent hyp erglycemic accelerations and even a brief bout of supervening hypoglycemia as noted thereof. His ora l intake remains quite variable as per the nursing staff and because of the suboptimal meal portions, has a predilection for glycemic fluctuations as noted thereof. His latest glucose levels today have ranged from 80-448 and 403 mg/dL. His latest chemistries includ e a BUN of 17, sodium 133, potassium 4.7, chloride 100, CO2 25, glucose 242 and creatinine 1.1. So at this time, we will modify once again his basal and bolus insulin regimen and increase the Levem ir to 24 units subQ at bedtime daily to start tonight. We will continue the Humalog given as 12 unit s subQ t.i.d. before meals as ordered. We will continue the low-dose correction scale using Humalog insulin as given. We will titrate incrementally as indicated to optimize metabolic control. We will follow. Raine Friedman MD cc: [id number] TT: 12/15/2016 12:31:44 Confirmation # [id number] Dictation # [id number] en
[2016-12-15 13:43] LABS: ALB/GLOB RATIO 0.8 (1.1-1.8); ALKALINE PHOSPHATASE 85 U/L (38-133); ALT/SGPT 18 U/L (7-56); AST/SGOT 48 U/L (15-59); BILIRUBIN,TOTAL 0.5 mg/dL (0.2-1.3); BLOOD UREA NITROGEN 14 mg/dL (7-21); CALCIUM 8.6 mg/dL (8.4-10.5); CARBON DIOXIDE 28 mmol/L (21-33); CHLORIDE 103 mmol/L (98-107); GFR AFRICAN-AMERICAN > 60; GLUCOSE,RANDOM 150 mg/dL (70-110); POTASSIUM 3.8 mmol/L (3.6-5.0); SODIUM 137 mmol/L (132-148); TOTAL PROTEIN 6.2 g/dL (5.8-8.3)
[2016-12-15 16:51] LABS: HEMATOCRIT 30.5 % (42.0-52.0); MEAN CELL VOLUME 81.6 fL (80.0-105.0); MEAN CORPUSCULAR HEMOGLOBIN 26.2 pg (25.0-35.0); MEAN CORPUSCULAR HGB CONC 32.1 g/dl (31.0-37.0); MEAN PLATELET VOLUME 9.4 fl (7.0-11.0); RED CELL DISTRIBUTION WIDTH 15.5 % (11.5-14.5); WHITE BLOOD COUNT 3.3 10^3/ul (4.5-11.0)
[2016-12-15] MEDS: Ferric Citrate 210 mg (AURYXIA) Tab. PO SCH (17:25)
--- NOTE | 2016-12-15 19:11 | PN ---
DATE: 12/15/2016 The patient seen and examined on the bedside, looks comfortable. Went for CAT scan of the head and d oes not want to go for further testing and he said if he has to go, he wants that family should be ac companying him. No shortness of breath. PHYSICAL EXAMINATION: VITAL SIGNS: Temperature 98.4, pulse 80, blood pressure 170/90, respiratory rate 20. HEENT: Head normocephalic, atraumatic. Eyes PERRLA. Extraocular muscles intact. Conjunctivae nikolai r. Nose patent. Mucous membrane moist. NECK: Supple. No carotid bruit, JVD, thyromegaly. CHEST: Bilaterally symmetrical. HEART: S1, S2 positive. LUNGS: Clear to auscultation. ABDOMEN: Soft. Bowel sounds positive. No organomegaly. EXTREMITIES: No extremity swelling, no cyanosis, no edema NEUROLOGIC: The patient awake, alert, but getting confused off and on. MEDICATIONS: Reviewed by me. LABORATORY DATA: Reviewed by me. ASSESSMENT AND PLAN: The patient is a 81-year-old male with acute kidney injury resolving. Nephrolo gy, Dr. To Javier, is on the case. Delirium, diabetes mellitus type 2, uncontrolled hypertensi on, dyslipidemia. The patient is still having [place] restraint because of his anxiety. He is getting delirious but getting a little bit better. The patient is receiving ferrous sulphate. He is on ins ulin. Trying to give patient some rehab, working on that. Seen by Dr. Javier, Dr. Raine Friedman for d iabetes mellitus. CAT scan of the head done, reviewed by me. No acute intracranial hemorrhage. No significant findings to account for the clinical presentation. We will follow up. Gricelda Anderson MD cc: [id number] TT: 12/15/2016 19:11:22 Confirmation # [id number] Dictation # [id number]
--- NOTE | 2016-12-15 19:24 | CON ---
DATE: 12/15/2016 CHIEF COMPLAINT: Change in mental status. HISTORY OF PRESENT ILLNESS: This is a 81-year-old man with past medical history of hypertension, dys lipidemia, diabetes, coronary artery disease, osteoarthritis. Came to the hospital complaining of ge neralized weakness. Found to have acute kidney injury and was slightly dehydrated. Currently hydrat ed, but he had a transient drop in his blood sugars of 48 on 12/13/2016 and transient drop in his bloo d pressures with spike in his blood pressures as well along with an elevated A1c of 9.8 and had an ep isode of wax and wane mental status. Currently, he is back to his baseline according to family membe rs. PAST MEDICAL HISTORY: History of hypertension, diabetes, dyslipidemia. REVIEW OF SYSTEMS: A 14-point review of systems is negative except for the HPI. HOME MEDICATIONS: Reviewed via the nurse's reconciliation sheet. ALLERGIES: No known drug allergies. FAMILY HISTORY: Noncontributory. SOCIAL HISTORY: No illicit drug use, smoking, or ETOH abuse. PHYSICAL EXAMINATION: VITAL SIGNS: Temperature of 98.4, pulse rate of 80, blood pressure of 164/86, respiratory rate 20, o xygen saturation 98% via room air. GENERAL: The patient is sitting up in bed in no acute distress. HEENT: Atraumatic, normocephalic. PERRLA. Extraocular muscles intact. NECK: Supple, no JVD, no adenopathy noted. LUNGS: Clear to auscultation. No adventitious sounds. HEART: S1, S2, normal rate and rhythm. No murmurs, rubs, or gallops. ABDOMEN: Soft, nontender, nondistended. Bowel sounds present. EXTREMITIES: No clubbing, no cyanosis. Peripheral pulses 2+ felt bilaterally. NEUROLOGIC: The patient is alert, orientated to person, place, month and year. Speech is fluent wit hout any errors. Attention span and thought process slow. Cranial nerves II-XII intact. MOTOR: Slight increased tone throughout. Moves all extremities equally. No pronator drift seen. SENSORY: Decreased light touch and pinprick up to the calves bilaterally. Decreased vibration of th e toes. DTRs are 1+ ____ and absent at the ankles. COORDINATION: Itubef-tk-zaye intact. Gait is deferred for now. LABORATORIES: Today's blood sugars are 225. A1c is 9.4. ASSESSMENT AND PLAN: A 81-year-old man with history of uncontrolled type 2 diabetes mellitus, had re cent hyperglycemic elevations and a brief bout of supervening hypoglycemic event with transient varia tions of blood pressure systolically and diastolically along with being dehydrated with a history of dyslipidemia as well as hypertension. Found to have dehydration and acute kidney injury. I was call ed for a change in mental status. His mental status is secondary to a transient delirium superimpose d on underlying general medical problems. At this time, recommend: 1. Monitor his blood sugars. Diabetic education given. Given his elevated A1c of 9.4, endocrinolog y on board. Medications adjusted. Keep his blood sugars between 140-180. 2. Keep the blood pressure between 120-130 mmHg. He is on Lipitor 20 mg. I would recommend a baby aspirin for stroke prevention of 81 mg. 3. Monitor his electrolytes and correct accordingly. Continue with current present management. We will sign off. Qamar Dunlap MD cc: [phone] TT: 12/15/2016 19:23:38 Confirmation # [id number] Dictation # [id number] sn
--- NOTE | 2016-12-15 20:24 | EEG ---
DATE: 12/15/2016 CONDITION OF RECORDING: Drowsy. DIAGNOSIS: Altered mental status. MEDICATIONS: Reviewed via nurse's reconciliation sheet. INTERPRETATION: This is a 16-channel international recording. The background activity was composed of 5-7 cycles per second. There was a small amount of beta activity 16-20 cycles per second seen in this recording. There was a small increase of amount of theta activity 5-7 cycles per second seen in this tracing. Drowsiness was characterized by vertex transient waves. Drowsiness was characterized by mixed beta and theta activities. Sleep was characterized by vertex transient waves, sleep spindl es and bilateral slowing. Photic stimulation showed no change in tracing. No paroxysmal activity no qian in this recording. CONCLUSION: Abnormal electroencephalogram due to presence of mild diffuse slowing throughout the EEG consistent with mild bilateral cerebral dysfunction. No evidence of any epileptiform activity. Qamar Dunlap MD cc: [id number] TT: 12/15/2016 20:23:31 Confirmation # [id number] Dictation # [id number] mn
--- NOTE | 2016-12-16 09:40 | CP.PCM.PN ---
Subjective - Date & Time of Evaluation Date of Evaluation: 12/16/16 Time of Evaluation: 09:34 - Subjective Subjective: Pt seen at the request of his RN who stated pt needs renewal of eula restraint She stated pt is confused at times and keeps climbing out of bed.[place] restraint is in place. At present he is alert ,awake,does not offer any complaints . Pt was admitted for dehydration. VS are stable PMH: DM,HTN,CAD and arthritis. Objective - Vital Signs/Intake and Output Vital Signs (last 24 hours): Temp Pulse Resp BP Pulse Ox 97.7 F 76 19 162/90 H 98 12/16/16 08:02 12/16/16 08:02 12/16/16 08:02 12/16/16 08:02 12/16/16 08:02 Intake and Output: 12/16/16 12/16/16 06:59 18:59 Intake Total 540 Output Total 550 1800 Balance -10 -1800 - Medications Medications: Current Medications Acetaminophen (Tylenol 325mg Tab) 650 mg PO Q4H PRN PRN Reason: Pain, Mild (1-3) Last Admin: 12/12/16 16:35 Dose: 650 mg Atorvastatin Calcium (Lipitor) 20 mg PO DAILY [facility] Last Admin: 12/15/16 09:48 Dose: 20 mg Famotidine (Pepcid) 40 mg PO HS [facility] Last Admin: 12/15/16 11:00 Dose: 40 mg Ferric Citrate (Auryxia) 210 mg PO DIN [facility] Last Admin: 12/15/16 17:25 Dose: 210 mg Ferrous Sulfate (Feosol) 324 mg PO BID [facility] Last Admin: 12/15/16 17:25 Dose: 324 mg Hydralazine HCl (Apresoline) 10 mg PO BID [facility] Last Admin: 12/15/16 17:25 Dose: 10 mg Insulin Detemir (Levemir) 24 unit SC HS [facility] Last Admin: 12/15/16 11:00 Dose: 24 unit Insulin Human Lispro (Humalog) 12 units SC AC [facility] Last Admin: 12/15/16 17:25 Dose: 12 units Non-Formulary Medication (Febuxostat [Uloric]) 40 mg PO DAILY [facility] Last Admin: 12/15/16 09:47 Dose: Not Given Sitagliptin Phosphate (Januvia) 25 mg PO DAILY [facility] Last Admin: 12/15/16 09:48 Dose: 25 mg - Labs Labs: 12/14/16 07:00 12/14/16 07:00 - Constitutional Appears: No Acute Distress - Head Exam Head Exam: ATRAUMATIC, NORMAL INSPECTION, NORMOCEPHALIC - Eye Exam Eye Exam: PERRL - ENT Exam ENT Exam: Mucous Membranes Moist - Respiratory Exam Respiratory Exam: NORMAL BREATHING PATTERN. absent: Respiratory Distress - Cardiovascular Exam Cardiovascular Exam: REGULAR RHYTHM - GI/Abdominal Exam GI & Abdominal Exam: Soft, Normal Bowel Sounds - Extremities Exam Extremities Exam: Normal Inspection. absent: Pedal Edema - Neurological Exam Neurological Exam: Alert, Awake, Oriented x3 Additional comments: Intermittently confused. - Skin Skin Exam: Dry, Warm Assessment and Plan - Assessment and Plan (Free Text) Assessment: Intermittent confusion Plan: [place] restraint ordered to prevent fall/injury.
[2016-12-16] MEDS: Non Formulary Medication (Febuxostat [Uloric] 40 MG) PO SCH (09:45)
[2016-12-16] MEDS: Insulin Lispro 1 UNITS/0.01 ML SC SCH ×3 (09:46→17:11)
--- NOTE | 2016-12-16 12:05 | PN ---
DATE: 12/16/2016 ROOM: 372 SUBJECTIVE: This is a 81-year-old male with recent uncontrolled type 2 insulin-requiring diabetes no w being followed closely for metabolic management. His glycemic levels are fluctuating because of th e variability of his oral intake as noted and today's glucoses have ranged from 80-225 mg/dL. The la test chemistry showed a BUN of 14, sodium 137, potassium 3.8, chloride 103, CO2 28, glucose 150, and creatinine 1.0. So, at this time, we will continue the same basal and bolus insulin regimen to allow for dose equilibration and keep him on Levemir at 24 units subQ at bedtime daily as given. We will also continue the Humalog given as 12 units subQ t.i.d. before meals as ordered. We will continue th e low dose correction scale using Humalog ____. We will obtain serial chemistries and supplement acc ordingly as needed. We will follow. Raine Friedman MD cc: [id number] TT: 12/16/2016 12:05:25 Confirmation # [id number] Dictation # [id number]
--- NOTE | 2016-12-16 13:07 | PN ---
DATE: 12/16/2016 SUBJECTIVE: The patient has no complaints of any chest pain or shortness of breath. He is more awak e and alert today. PHYSICAL EXAMINATION: VITAL SIGNS: Temperature is 97.7, pulse is 76, blood pressure 162/90, respirations 19. GENERAL: The patient comfortable, in no acute distress. HEENT: Anicteric sclerae. Moist mucosa. NECK: No JVD or adenopathy. CARDIAC: S1/S2. No murmurs. No rubs. Regular. RESPIRATORY: Clear to auscultation bilaterally. No wheezes, rales, or rhonchi. Good air entry. ABDOMEN: Bowel sounds are positive, soft, nontender, and nondistended. EXTREMITIES: No edema. Has 1+ pulses. LABORATORY DATA: White count of 3.3. Creatinine is 1.0. ASSESSMENT: 1. Acute kidney injury, resolved. 2. Delirium, improved. 3. Diabetes type 2. 4. Hypertension. 5. Dyslipidemia. PLAN: The patient is currently comfortable. He is going to be on Januvia for his diabetes. The britany collazo is on iron replacement, is going to be on Tylenol as needed. The patient is on insulin. The tiffany gamez's kidney function is at baseline at this point. To Javier MD cc: [id number] TT: 12/16/2016 13:06:44 Confirmation # [id number] Dictation # [id number] vicky
[2016-12-16 17:06] VITALS: O2SAT 99
--- NOTE | 2016-12-16 21:28 | PN ---
DATE: 12/16/2016 SUBJECTIVE: The patient is a 81-year-old male with multiple medical problems, seen and examined in h is room, looks comfortable. No change in the status. No nausea, vomiting, or diarrhea. No hematuri a or hematochezia. No swelling of the legs. Is more awake and alert. PHYSICAL EXAMINATION: VITAL SIGNS: Temperature 97.7, pulse 76, blood pressure 162/90, respiratory rate 19. HEENT: Head normocephalic, atraumatic. Eyes: PERRLA. Extraocular muscles intact. Conjunctivae are clear. Nose patent. Mucous membranes moist. NECK: Supple. No carotid bruit, JVD or thyromegaly. CHEST: Bilaterally symmetrical. HEART: S1, S2 positive. LUNGS: Clear to auscultation bilaterally. No wheezing, rales or rhonchi. Good air entry. ABDOMEN: Soft. Bowel sounds present. No organomegaly. EXTREMITIES: No edema, no cyanosis. Has +1 pulses. MEDICATIONS: Hydralazine, ferric citrate, Feosol, insulin, Januvia, Levemir, Lipitor, Pepcid, Tyleno l. LABORATORY DATA: White blood cells 3.3, hemoglobin 9.8, hematocrit 30.5, platelets 216. Sodium 137, potassium 3.8, BUN 14, creatinine 1.0. Glucose 225, 448. ASSESSMENT AND PLAN: The patient is a 81-year-old male with leukopenia, anemia, hyperglycemia, seen by the wellness manager, Dr. To Javier, has acute kidney injury, resolving, delirium, improving, hy pertension, dyslipidemia. Dr. To Javier started Januvia for the diabetes, iron replacement, Ty lenol as needed. The patient is on insulin sliding scale. Kidney function is back to baseline. Out of bed, physical therapy. Repeat labs. We will follow up. Gricelda Anderson MD cc: [id number] TT: 12/16/2016 21:27:24 Confirmation # [id number] Dictation # [id number] domo
[2016-12-16] MEDS: Insulin Detemir 100 units/ml Vial (Levemir) SC SCH (22:30)
[2016-12-17] MEDS: Insulin Lispro 1 UNITS/0.01 ML SC SCH ×3 (08:28→17:56)
[2016-12-17] MEDS: Non Formulary Medication (Febuxostat [Uloric] 40 MG) PO SCH (09:22)
[2016-12-17 12:40] LABS: GLUCOSE,RANDOM 338 mg/dL (70-110)
--- NOTE | 2016-12-17 14:18 | PN ---
DATE: 12/17/2016 ENDO FOLLOWUP NOTE ROOM: 372. SUBJECTIVE: This is a 81-year-old male with recent uncontrolled type 2 insulin-requiring diabetes, n ow being followed closely for metabolic management. His glycemic levels are fluctuating, but improve d at this time, and the latest chemistries showed a BUN of 14, sodium 137, potassium 3.8, chloride 10 3, CO2 of 28, glucose 150, and creatinine 1.0. His glucose levels have ranged from 80-225 mg/dL. Hi s glucose values today were actually on the low side of normal in the morning with 82 at prebreakfast , and subsequent level at 251 mg/dL. His bedtime glucose was 146-172 mg/dL. So at this time, we will actually lower and modify his basal insulin and lower the Levemir to 20 unit s subQ at bedtime daily to start tonight. We will continue the low-dose correction scale using Humal og insulin as given. We will also modify his prandial and mealtime insulin because of the variabilit y of his oral intake and lower the Humalog to 8 units subQ t.i.d. before meals as ordered. We will obtain serial chemistries and supplement accordingly as needed, and we will titrate increment ally as indicated to optimize metabolic control. We will follow and advise accordingly. Raine Friedman MD cc: [id number] TT: 12/17/2016 14:17:54 Confirmation # [id number] Dictation # [id number] vicky
[2016-12-17 16:31] VITALS: RESP 20
[2016-12-17] MEDS: Ferric Citrate 210 mg (AURYXIA) Tab. PO SCH (17:55)
[2016-12-17] MEDS ORDERED: Insulin Detemir 100 units/ml Vial (Levemir) SC SCH (22:00)
[2016-12-18 08:41] VITALS: BP 139/66; PULSE 77; TEMP 98.7
[2016-12-18] MEDS: Insulin Lispro 1 UNITS/0.01 ML SC SCH ×2 (08:42→12:38)
[2016-12-18] MEDS: Non Formulary Medication (Febuxostat [Uloric] 40 MG) PO SCH (10:47)
--- NOTE | 2016-12-18 10:58 | PN ---
DATE: 12/17/2016 SUBJECTIVE: The patient was seen and examined on 12/17/16 and was comfortable, getting more awake and alert. No fever, no chills, no nausea, vomiting, or diarrhea. No hematuria or hematochezia. No swelling of the leg. No chest pain or palpitations. PHYSICAL EXAMINATION: VITAL SIGNS: Temperature 98.5, pulse 80 , Blood pressure is 129/69, respiratory rate 20. HEAD: Normocephalic, atraumatic. EYES: PERRLA. Extraocular muscles intact. Conjunctivae are clear. Nose is patent. Mucous membranes are moist. NECK: Supple. No carotid bruit, JVD, or thyromegaly. CHEST: Bilaterally symmetrical. HEART: S1, S2 positive. LUNGS: Clear to auscultation. ABDOMEN: Soft. Bowel sounds present. No organomegaly. EXTREMITIES: No edema, no cyanosis. NEUROLOGIC: The patient is awake, alert, follows simple commands. MEDICATIONS: Hydralazine, iron sulfate, insulin, Januvia, Levemir, Lipitor Pepcid. LABORATORY DATA: We do not have recent labs today, but I reviewed old labs. ASSESSMENT AND PLAN: The patient is a 81-year-old male with acute kidney injury , resolved, delirium improved, diabetes mellitus type 2, hypertension, dyslipidemia, is getting Januvia, iron replacement. Diabetes is uncontrolled. Raine Friedman is on the case. She is following up closely for metabolic management. His glycemic levels are fluctuating, but improved at this time, and actually, she lowered and modified the basal insulin and lowered the Levemir 20 units subcutaneously at bedtime daily is on the sliding scale. Gastrointestinal and deep venous thrombosis prophylaxis. Out of bed, physical therapy. Neurologist is on the case. We will follow up. Gricelda Anderson MD cc: [id number] TT: 12/18/2016 10:57:29 Confirmation # [id number] Dictation # [id number] MTDD
--- NOTE | 2016-12-19 08:23 | PN ---
DATE: 12/18/2016 ROOM: 372 This is a 81-year-old male with recent uncontrolled type 2 insulin-requiring diabetes, now being foll owed closely for metabolic management. His glycemic levels are fluctuating, but improved and christine freire had a ____ bout of hypoglycemia at bedtime and they held the basal insulin with supervening hyper glycemic accelerations as expected this morning and a glucose value of 388 mg/dL. His latest astrochemist lorene include a BUN of 14, sodium 137, potassium 3.8, chloride 103, CO2 of 28, glucose 150, and creati nine 1.0. So, at this time, we will modify once again his basal and bolus insulin regimen as his oral intake re yousif quite variable with suboptimal and ____ portions as per the nursing staff. Would recommend a m uch lower basal and bolus insulin dose regimen as discussed with the staff as he is scheduled for dis charge today. He will follow with his primary physician for outpatient medical and diabetic manageme nt. Raine Friedman MD cc: [id number] TT: 12/18/2016 16:39:43 Confirmation # [id number] Dictation # [id number]
--- NOTE | 2016-12-28 08:00 | DS ---
CHIEF COMPLAINT: Decreased appetite, fatigue, tired, not feeling very well. HISTORY OF PRESENT ILLNESS: The patient is a 81-year-old male with past medical history of hypertension, diabetes mellitus, coronary artery disease, arthritis. Came to Emergency Room complaining of generalized weakness, decreased appetite, about 4 days. The patient also complaining about shoulder and back pain. Denies fevers, chills, headache, dizziness, chest pain, difficulty of breathing, nausea, vomiting. We admitted the patient, did CAT scan of the head, sleep/awake electroencephalography because patient was having altered mental status. Sugar was very high. We called endocrinology consult with Raine Friedman. The patient was seen by Dr. To Javier for renal insufficiency. Dr. Dunlap saw the patient for altered mental status. The patient got better. ERASMO was offered, but patient and family refused. His son said they want to take care of the father, they do not want ERASMO. Then, patient was discharged home with prescription of medications given. Follow up with primary care physician. PAST MEDICAL HISTORY: Hypertension, diabetes mellitus, arthritis. FAMILY HISTORY: Father and mother noncontributory. HABITS: Former smoker quit. No alcohol abuse, no substance abuse. ALLERGIES: The patient is not allergic with any medications. HOME MEDICATIONS: Calcium, ferrous sulfate, insulin, Januvia, sodium bicarbonate, hydralazine. REVIEW OF SYSTEMS: The patient was seen and examined on the bedside, looks comfortable. No nausea, vomiting, diarrhea. No hematuria, no hematochezia. No swelling of the legs. No chest pain. No headache, no fever. PHYSICAL EXAMINATION: VITAL SIGNS: Temperature 98.7, pulse 77, blood pressure 113/66, respiratory rate 20. HEENT: Head normocephalic, atraumatic. Eyes, PERRLA. Extraocular muscles intact. Conjunctivae clear. Nose patent. Mucous membranes moist. NECK: Supple. No carotid bruit, no JVD, no thyromegaly. CHEST: Bilaterally symmetrical. HEART: S1, S2 positive. LUNGS: Clear to auscultation. ABDOMEN: Soft. Bowel sounds positive. No organomegaly. EXTREMITIES: No edema, no cyanosis. NEUROLOGIC: The patient is awake, alert, moving all 4 extremities. No focal deficits. LABORATORIES: White blood cells 3.3, hemoglobin 9.8, hematocrit 30.5, platelets 216. Glucose 373, 251, 123, 388. ASSESSMENT AND PLAN: The patient is a 81-year-old male with leukopenia, anemia , uncontrolled diabetes mellitus, glucosuria, hematuria. Seen by Dr. Raine Friedman for uncontrolled diabetes mellitus. Has acute kidney injury, resolved, delirium , improved, hypertension, dyslipidemia. Got Januvia, iron replacement. Needs close monitoring of metabolic . Getting Levemir 20 units. Gastrointestinal and deep venous thrombosis prophylaxis. 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 Will follow up with all those doctors. Prescription of medications given. Gricelda Anderson MD cc: [id number] TT: 12/28/2016 07:59:43 en MTDD
== END 2016-12-18 16:04 | disposition home or self-care (01) | DRG 638 ==
LOC: ED 19:44 → ERH 22:46 → 3RSO 12-12 01:04 → OBSVTOIN 12-12 11:25 → MERGE 12-12 11:25
PROVIDERS: ADMIT Internal Medicine; ATTEND Internal Medicine
DX: E11.00 Type 2 diabetes mellitus with hyperosmolarity without nonketotic hyperglycemic-hyperosmolar coma (NKHHC) (principal); E87.1 Hypo-osmolality and hyponatremia; N17.9 Acute kidney failure, unspecified; E11.649 Type 2 diabetes mellitus with hypoglycemia without coma; E86.0 Dehydration; Z78.1 Physical restraint status; E78.00 Pure hypercholesterolemia, unspecified; E78.5 Hyperlipidemia, unspecified; F10.10 Alcohol abuse, uncomplicated; D72.819 Decreased white blood cell count, unspecified; D64.9 Anemia, unspecified; F41.9 Anxiety disorder, unspecified; I10 Essential (primary) hypertension; I25.10 Atherosclerotic heart disease of native coronary artery without angina pectoris; I25.2 Old myocardial infarction; M10.00 Idiopathic gout, unspecified site; M15.9 Polyosteoarthritis, unspecified; M17.9 Osteoarthritis of knee, unspecified; Z79.4 Long term (current) use of insulin; Z79.899 Other long term (current) drug therapy; Z82.49 Family history of ischemic heart disease and other diseases of the circulatory system; Z83.3 Family history of diabetes mellitus; Z87.891 Personal history of nicotine dependence; R40.2412 Glasgow coma scale score 13-15, at arrival to emergency department

== ENCOUNTER 2017-07-12 11:03 | Day surgery (SDC) | payer MEDICARE ==
[2017-07-05 07:51] VITALS: BMI 21.0
[2017-07-12] MEDS ORDERED: Propofol 10 mg/ml Inj (20 ML) ONE (12:12)
[2017-07-12] MEDS ORDERED: Lidocaine 2% Inj (20ml) ONE (12:12)
[2017-07-12] MEDS ORDERED: Sodium Chloride 0.9% 1,000 ML IV SCH (13:15)
[2017-07-12 14:20] VITALS: BP 173/81; PULSE 65; RESP 17; TEMP 97.7; O2SAT 100
== END 2017-07-12 15:20 | disposition home or self-care (01) ==
LOC: ENDO 11:03
PROVIDERS: ATTEND Internal Medicine
DX: D12.4 Benign neoplasm of descending colon (principal); K25.9 Gastric ulcer, unspecified as acute or chronic, without hemorrhage or perforation; K29.80 Duodenitis without bleeding; K29.50 Unspecified chronic gastritis without bleeding; D64.9 Anemia, unspecified; K64.8 Other hemorrhoids; R63.4 Abnormal weight loss
CPT/HCPCS: 43239; 45380; 82948; 88305; 88342; J2704; J3010; J7040 ×2

== ENCOUNTER 2017-09-01 13:53 | Inpatient (IN) | payer MEDICARE ==
[2017-09-01] MEDS ORDERED: Sodium Chloride 0.9% 1,000 ML IV STA ×2 (14:34→14:59)
--- NOTE | 2017-09-01 14:46 | ED PDOC ---
Arrival/HPI - General Chief Complaint: Trauma Time Seen by Provider: 09/01/17 14:19 - History of Present Illness Narrative History of Present Illness (Text): 09/01/17 14:41 82 year old male, whose past medical history includes hypertension, diabetes, CAD and arthritis, presents to the Emergency department via EMS complaining of AMS prior to arrival. As per daughter, patient was found on the floor s/p fall more confused than baseline for which she called 911. Blood sugar on scene was measured to be 500 mg/dL and was noted to hit his head s/p fall. Daughter was a poor historian and could not provide any history. Patient denies any fever, chills, nausea, vomiting, chest pain, abdominal pain, shortness of breath or any other complaints. Past Medical History - Provider Review Nursing Documentation Reviewed: Yes - Infectious Disease Hx of Infectious Diseases: None - Cardiac Hx Pacemaker: No - Pulmonary Hx Respiratory Disorders: No - Neurological Hx Paralysis: No - HEENT Hx HEENT Disorder: No - Renal Hx Renal Disorder: No - Endocrine/Metabolic Hx Endocrine Disorders: Yes Hx Diabetes Mellitus Type 2: Yes - Hematological/Oncological Hx Blood Transfusions: No - Integumentary Hx Dermatological Disorder: No - Musculoskeletal/Rheumatological Hx Musculoskeletal Disorders: Yes - Gastrointestinal Hx Gastrointestinal Disorders: No - Genitourinary/Gynecological Hx Genitourinary Disorders: No - Psychiatric Hx Emotional Abuse: No Hx Physical Abuse: No Hx Substance Use: No - Anesthesia Hx Anesthesia Reactions: No Hx Malignant Hyperthermia: No - Suicidal Assessment Feels Threatened In Home Enviroment: No Family/Social History - Physician Review Nursing Documentation Reviewed: Yes Family/Social History: No Known Family HX Smoking Status: Former Smoker Hx Alcohol Use: No Hx Substance Use: No Allergies/Home Meds Allergies/Adverse Reactions: Allergies Penicillins Allergy (Verified 09/01/17 17:20) ITCHING Home Medications: Home Meds Medication Instructions Recorded Confirmed Atorvastatin Calcium 40 mg PO DAILY 12/11/16 09/01/17 Ferric Citrate [Auryxia] 210 mg PO DIN 12/11/16 09/01/17 Donepezil HCl [Aricept] 10 mg PO DAILY 04/10/17 09/01/17 Losartan Potassium 100 mg PO DAILY 04/10/17 09/01/17 Insulin Lispro [Humalog (Insulin 8 unit SQ ACLD 07/06/17 09/01/17 Lispro)] Metoprolol Tartrate [Lopressor] 25 mg PO BID 07/06/17 09/01/17 Pantoprazole [Protonix] 40 mg PO DAILY 07/12/17 09/01/17 Insulin Detemir [Levemir] 25 unit SC DAILY 08/30/17 09/01/17 SITagliptin [Januvia] 50 mg PO DAILY 08/30/17 09/01/17 Review of Systems - Physician Review All systems were reviewed & negative as marked: Yes - Review of Systems Constitutional: Normal. absent: Fevers Eyes: Normal ENT: Normal Respiratory: Normal. absent: SOB Cardiovascular: Normal. absent: Chest Pain Gastrointestinal: Normal. absent: Abdominal Pain, Nausea, Vomiting Genitourinary Male: Normal Musculoskeletal: Normal Skin: Normal Neurological: Other (Altered mental status ) Endocrine: Normal Hemo/Lymphatic: Normal Psychiatric: Normal Physical Exam Vital Signs Reviewed: Yes Vital Signs Temp Pulse Resp BP Pulse Ox 09/01/17 19:01 97.5 F L 82 18 120/57 L 99 09/01/17 17:30 110 H 18 120/57 L 09/01/17 17:27 97.5 F L 09/01/17 15:04 94.8 F L 09/01/17 14:30 100 H 16 132/66 98 09/01/17 14:15 94.5 F L 09/01/17 13:54 107 H 18 147/73 19 L Temperature: Hypothermic Blood Pressure: Normal Pulse: Tachycardic Appearance: Positive for: Ill-Appearing, Cachectic Pain Distress: None Mental Status: Positive for: other (AMS) Finger Stick Blood Glucose: 500 - Systems Exam Head: Present: Atraumatic, Normocephalic Pupils: Present: PERRL Extroacular Muscles: Present: EOMI Mouth: Present: Dry Cardiovascular: Present: Regular Rate and Rhythm, Tachycardic Abdomen: No: Tenderness, Distention, Peritoneal Signs, Rebound, Guarding, Rovsing's Sign Present Upper Extremity: Present: Normal Inspection. No: Cyanosis, Edema Lower Extremity: Present: Normal Inspection. No: Edema Neurological: Present: Other (awake, no focal deficit, confused response) Medical Decision Making ED Course and Treatment: 09/01/17 15:06 Impression: 82 year old male presents to the Emergency department for AMS. Plan: -- VBG -- CT of Head -- Labs -- EKG -- Chest X-ray -- IV Fluids -- Urinalysis -- Reassess and disposition Progress Notes: 09/01/17 15:36 Chest X-ray reviewed by radiologist, shows no active disease. 09/01/17 15:50 EKG: Ordered, reviewed, and independently interpreted the EKG. Rate : 104 BPM Rhythm : Sinus tachycardia. Interpretation : Left ventricular hypertrophy. Non-specific ST/T wave changes. 09/01/17 21:39 pt found to be in dka, insulin bolus and drip startd. found to be hypoterhemic with positive sirs criteria. empiric antibiotics started. code sepsis initiated. noted trop. asa/lovenox held until head ctperformed. dr donis accepts. icu - Critical Care Critical Care Minutes: 45 minutes Critical Care Time: Other (Hyperglycemia/AMS) - Lab Interpretations Lab Results: 09/01/17 14:12 09/01/17 14:12 Lab Results 09/01/17 14:35: pO2 102 H, VBG pH 7.01 L*, VBG pCO2 17.0 L*, VBG HCO3 4.3 L, VBG Total CO2 4.8 L, VBG O2 Sat (Calc) 98.7 H, VBG Base Excess -25.2 L, VBG Potassium 6.5 H*, Glucose > 750 H*, Lactate 4.1 H*, FiO2 21.0, Chloride 94.0 L, Venous Blood Potassium 6.5 H* 09/01/17 14:12: Sodium 139, Potassium 6.5 H* D, Chloride 99, Carbon Dioxide 5 L D, Anion Gap 42 H, BUN 47 H, Creatinine 2.7 H, Est GFR ( Amer) 28, Est GFR (Non-Af Amer) 23, Random Glucose 1071 H* D, Calcium 10.2, Magnesium 2.9 H, Total Bilirubin 0.5, AST 37, ALT 18, Alkaline Phosphatase 155 H, Lactate Dehydrogenase 632, Total Creatine Kinase 309 H, CK-MB (CK-2) 7.9 H, CK-MB (CK-2 ) % 2.6, Troponin I 0.13 H* D, Total Protein 7.3, Albumin 4.1, Globulin 3.1, Albumin/Globulin Ratio 1.3 09/01/17 14:12: PT 10.8, INR 0.94, APTT 28.3 09/01/17 14:12: WBC 11.8 H D, RBC 3.79, Hgb 10.6 L, Hct 36.2 L, MCV 95.5, MCH 28.0, MCHC 29.3 L, RDW 16.6 H, Plt Count 274, MPV 10.5, Gran % 80.3 H, Lymph % ( Auto) 10.1 L, Ralls % (Auto) 9.5 H, Eos % (Auto) 0.0 L, Baso % (Auto) 0.1, Gran # 9.51 H, Lymph # (Auto) 1.2, Ralls # (Auto) 1.1 H, Eos # (Auto) 0.0, Baso # ( Auto) 0.01 - RAD Interpretation Radiology Orders: 09/01/17 14:34 HEAD W/O CONTRAST [CT] Stat CHEST PORTABLE [RAD] Stat - Medication Orders Current Medication Orders: Aspirin (Aspirin Supp) 300 mg RC DAILY [facility] Heparin Sodium (Porcine) (Heparin) 5,000 units SC Q12 LORA PRN Reason: Protocol Last Admin: 09/01/17 21:19 Dose: 5,000 units Subcutaneous Administrations Document 09/01/17 21:19 AOM (Rec: 09/01/17 21:19 [id number]) Injection Site MAR Injection Site Right Abdomen Charges for Administration # of Subcutaneous Administrations 1 Ciprofloxacin (Cipro 400mg/200ml Dsw) 400 mg in 200 mls @ 133.3 mls/hr IVPB Q12 LORA PRN Reason: Protocol Stop: 09/01/17 23:31 Last Admin: 09/01/17 21:20 Dose: 133.3 mls/hr eMAR Start Stop Document 09/01/17 21:20 AOM (Rec: 09/01/17 21:21 [id number]) Intravenous Solution Start Date 09/01/17 Start Time 21:20 End Date 09/01/17 End time 22:50 Total Infusion Time 90 Insulin Human Regular 100 (units/ Sodium Chloride) 100 mls @ 5 mls/hr IV .Q20H PRN; Protocol; 5 UNITS/HR PRN Reason: TITRATE PER MD ORDER Last Admin: 09/01/17 20:30 Dose: 5 units/hr, 5 mls/hr eMAR Start Stop Document 09/01/17 20:30 AOM (Rec: 09/01/17 20:49 [email or web address]) Intravenous Solution Start Date 09/01/17 Start Time 20:30 End Date 09/02/17 Titration Intervention Document 09/01/17 20:30 AOM (Rec: 09/01/17 20:49 [email or web address]) Titration Intake Waste Amount 0 Container Volume 100 Titration Dosing Titration Dose 5 IV Rate 5 Intake/Decrease Started Potassium Chloride 20 meq/ (Sodium Chloride) 1,010 mls @ 150 mls/hr IV .Q6H44M [facility] Last Admin: 09/01/17 21:30 Dose: 150 mls/hr eMAR Start Stop Document 09/01/17 21:30 AOM (Rec: 09/01/17 21:34 [facility] Intravenous Solution Start Date 09/01/17 Start Time 21:30 End Date 09/02/17 Pantoprazole Sodium (Protonix Inj) 40 mg IVP DAILY LORA Discontinued Medications Aspirin (Aspirin Supp) 300 mg RC STAT STA Stop: 09/01/17 20:17 Last Admin: 09/01/17 20:46 Dose: 300 mg MAR Pain/Vitals Document 09/01/17 20:46 AOM (Rec: 09/01/17 20:46 [facility]) Pain Reassessment Is This A Pain ReAssessment? No Sleep Is patient sleeping during reassessment? No Presence of Pain Presence of Pain No Calcium Gluconate (Calcium Gluconate Iv) 1,000 mg IVP ONCE ONE Stop: 09/01/17 15:40 Last Admin: 09/01/17 16:06 Dose: 1,000 mg IVP Administration Document 09/01/17 16:06 MS (Rec: 09/01/17 16:06 MS [id number]) Charges for Administration # of IVP Administrations 1 Sodium Chloride (Sodium Chloride 0.9%) 1,000 mls @ 999 mls/hr IV .Q1H1M STA Stop: 09/01/17 15:34 Last Admin: 09/01/17 14:46 Dose: 999 mls/hr eMAR Start Stop Document 09/01/17 14:46 MS (Rec: 09/01/17 14:48 MS [id number]) Intravenous Solution Start Date 09/01/17 Start Time 14:48 End Date 09/01/17 End time 15:48 Total Infusion Time 60 Vancomycin HCl (Vancomycin 1gm) 1 gm in 250 mls @ 167 mls/hr IVPB STAT STA PRN Reason: Protocol Stop: 09/01/17 16:27 Last Admin: 09/01/17 15:21 Dose: 167 mls/hr eMAR Start Stop Document 09/01/17 15:21 MS (Rec: 09/01/17 15:27 MS [id number]) Intravenous Solution Start Date 09/01/17 Start Time 15:26 End Date 09/01/17 End time 16:56 Total Infusion Time 90 Sodium Chloride (Sodium Chloride 0.9%) 1,000 mls @ 999 mls/hr IV .Q1H1M STA Stop: 09/01/17 15:59 Last Admin: 09/01/17 16:19 Dose: 999 mls/hr eMAR Start Stop Document 09/01/17 16:19 MS (Rec: 09/01/17 16:19 MS [id number]) Intravenous Solution Start Date 09/01/17 Start Time 16:19 End Date 09/01/17 End time 17:19 Total Infusion Time 60 Insulin Human Regular 100 (units/ Sodium Chloride) 100 mls @ 9.36 mls/hr IV .[id number] PRN; Protocol; 0.15 UNITS/KG/HR PRN Reason: TITRATE PER MD ORDER Last Admin: 09/01/17 16:30 Dose: 0.15 units/kg/hr, 9.36 mls/hr eMAR Start Stop Document 09/01/17 16:30 MS (Rec: 09/01/17 17:25 [id number]) Intravenous Solution Start Date 09/01/17 Start Time 16:30 MAR Blood Glucose Document 09/01/17 16:30 MS (Rec: 09/01/17 17:25 [id number]) Blood Glucose Finger Stick Blood Glucose (70-120) 500 Titration Intervention Document 09/01/17 16:30 MS (Rec: 09/01/17 17:25 MS [id number]) Titration Intake Waste Amount 0 Container Volume 100 Titration Dosing Titration Dose 0.15 IV Rate 9.36 Intake/Decrease Started Sodium Chloride (Sodium Chloride 0.9%) 1,000 mls @ 150 mls/hr IV .Q6H40M [facility] Insulin Human Regular (Humulin R) 6 units IV STAT STA Stop: 09/01/17 16:08 Last Admin: 09/01/17 17:13 Dose: 6 units eMAR Start Stop Document 09/01/17 17:13 MS (Rec: 09/01/17 17:15 MS [id number]) Intravenous Solution Start Date 09/01/17 Start Time 17:14 MAR Blood Glucose Document 09/01/17 17:13 MS (Rec: 09/01/17 17:15 MS [id number]) Blood Glucose Finger Stick Blood Glucose (70-120) 500 Pneumococcal Polyvalent Vaccine (Pneumovax 23 Vaccine) 0.5 ml IM .ONCE ONE Stop: 09/01/17 19:52 Sodium Bicarbonate (Sodium Bicarbonate 8.4% (50 Meq) Syringe) 50 meq IVP ONCE ONE Stop: 09/01/17 15:40 Last Admin: 09/01/17 16:08 Dose: 50 meq IVP Administration Document 09/01/17 16:08 MS (Rec: 09/01/17 16:08 MS [id number]) Charges for Administration # of IVP Administrations 1 - Scribe Statement The provider has reviewed the documentation as recorded by the Scribe Sandra Mcconnell. All medical record entries made by the Scribe were at my direction and personally dictated by me. I have reviewed the chart and agree that the record accurately reflects my personal performance of the history, physical exam, medical decision making, and the department course for this patient. I have also personally directed, reviewed, and agree with the discharge instructions and disposition. Disposition/Present on Arrival - Present on Arrival Any Indicators Present on Arrival: No History of DVT/PE: No History of Uncontrolled Diabetes: Yes Urinary Catheter: No History of Decub. Ulcer: No History Surgical Site Infection Following: None - Disposition Have Diagnosis and Disposition been Completed?: Yes Diagnosis: DKA (diabetic ketoacidoses), Acute kidney injury, Sepsis, NSTEMI (non-ST elevated myocardial infarction) Disposition: HOSPITALIZED Disposition Time: 04:30 Patient Problems: Current Active Problems Problem Status Onset Acute kidney injury Acute DKA (diabetic ketoacidoses) Acute NSTEMI (non-ST elevated myocardial infarction) Acute Sepsis Acute Condition: CRITICAL
[2017-09-01 14:51] LABS: BASO # 0.01 K/mm3 (0.0-2.0); BASO % 0.1 % (0.0-3.0); GRAN # 9.51 (1.4-6.5); GRAN % 80.3 % (50.0-68.0); HEMOGLOBIN 10.6 g/dL (14.0-18.0); LYMPH # 1.2 (1.2-3.4); LYMPH % 10.1 % (22.0-35.0); MEAN CELL VOLUME 95.5 fl (80.0-105.0); MEAN CORPUSCULAR HGB CONC 29.3 g/dl (31.0-37.0); MEAN PLATELET VOLUME 10.5 fl (7.0-11.0); MONO # 1.1 (0.1-0.6); MONO % 9.5 % (1.0-6.0); RBC 3.79 10^6/uL (3.5-6.1); RED CELL DISTRIBUTION WIDTH 16.6 % (11.5-14.5); WHITE BLOOD COUNT 11.8 10^3/ul (4.5-11.0)
[2017-09-01 14:54] LABS: VENOUS BLOOD GAS BASE EXCESS -25.2 mmol/L (0.0-2.0); VENOUS BLOOD GAS PO2 102 mm/Hg (30-55)
[2017-09-01 14:57] LABS: VENOUS BLOOD PH 7.01 (7.32-7.43)
[2017-09-01] MEDS ORDERED: Piperacillin/Tazobact 3.375 gm 100 ML IVPB STA (14:58)
[2017-09-01] MEDS ORDERED: Vancomycin 1gm in NS 250ml 1 GM/250 ML BAG IVPB STA (14:58)
[2017-09-01 15:01] LABS: PROTHROMBIN TIME 10.8 SECONDS (9.4-12.5)
[2017-09-01 15:02] LABS: INR 0.94 (0.93-1.08); PARTIAL THROMBOPLASTIN TIME 28.3 Seconds (25.1-36.5)
--- NOTE | 2017-09-01 15:33 | RAD ---
HISTORY: ams COMPARISON: 12/11/2016 FINDINGS: LUNGS: No active pulmonary disease. PLEURA: No significant pleural effusion identified, no pneumothorax apparent. CARDIOVASCULAR: Normal. Moderate aortic tortuosity OSSEOUS STRUCTURES: No significant abnormalities. VISUALIZED UPPER ABDOMEN: Normal. OTHER FINDINGS: None. IMPRESSION: No active disease.
[2017-09-01 15:37] LABS: ALB/GLOB RATIO 1.3 (1.1-1.8); ALBUMIN 4.1 g/dL (3.0-4.8); CALCIUM 10.2 mg/dL (8.4-10.5); MAGNESIUM 2.9 mg/dL (1.7-2.2)
[2017-09-01] MEDS ORDERED: Insulin Regular 100 UNITS in Sodium Chloride 0.9% 99 ML IV PRN ×2 (15:38→19:20)
[2017-09-01] MEDS ORDERED: Sodium Bicarbonate (8.4%) 50 Meq Syringe IVP ONE (15:39)
[2017-09-01 15:56] LABS: TROPONIN I 0.13 ng/mL
[2017-09-01] MEDS ORDERED: Insulin Regular 1 UNITS/0.01 ML ML IV STA (16:07)
[2017-09-01 16:20] LABS: CK MB% 2.6 % (2.5-3.0); CK-MB 7.9 ng/mL (0.0-3.6)
[2017-09-01 18:26] LABS: URINE BILIRUBIN NEGATIVE (NEGATIVE); URINE BLOOD MODERATE (NEGATIVE); URINE GLUCOSE (UA) >=1000 mg/dL (NEGATIVE); URINE LEUKOCYTE ESTERASE NEGATIVE Leu/uL (NEGATIVE); URINE NITRATE NEGATIVE (NEGATIVE); URINE PROTEIN 30 mg/dL (<30 mg/dL); URINE UROBILINOGEN 0.2 E.U./dL (<1 E.U./dL)
[2017-09-01 18:32] LABS: URINE APPEARANCE SL CLOUDY (CLEAR); URINE COLOR YELLOW (YELLOW)
[2017-09-01 18:41] LABS: URINE BACTERIA FEW (NEG)
[2017-09-01 18:45] LABS: VENOUS BLOOD GAS BASE EXCESS -24.2 mmol/L (0.0-2.0); VENOUS BLOOD GAS PO2 142 mm/Hg (30-55)
[2017-09-01 19:27] LABS: CALCIUM 9.9 mg/dL (8.4-10.5); VENOUS BLOOD PH 7.03 (7.32-7.43)
[2017-09-01] MEDS ORDERED: Sodium Chloride 0.9% 1,000 ML IV SCH (19:30)
[2017-09-01 19:51] VITALS: BMI 19.6
[2017-09-01] MEDS ORDERED: Influenza Vaccine 60 mcg/0.5 mL SYR (4YR UP) IM ONE (19:51)
[2017-09-01] MEDS ORDERED: Pneumococcal 23-Valent Vaccine IM ONE (19:51)
--- NOTE | 2017-09-01 19:54 | CT ---
EXAM: CT Head Without Intravenous Contrast CLINICAL HISTORY: 82 years old, male; Signs and symptoms; Altered mental status/memory loss; Patient HX: AMS TECHNIQUE: Axial computed tomography images of the head/brain without intravenous contrast. All CT scans at this facility use one or more dose reduction techniques, viz.: automated exposure control; ma/kV adjustment per patient size (including targeted exams where dose is matched to indication; i.e. head); or iterative reconstruction technique. Coronal and sagittal reformatted images were created and reviewed. COMPARISON: CT - HEAD W/O CONTRAST 2016-12-15 07:53 FINDINGS: Brain: Dawb-ma-ikotdzav atrophy. No intracranial hemorrhage. No mass. Multiple scattered foci of decreased attenuation within periventricular/subcortical white matter. 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 No definite edema. Ventricles: No hydrocephalus. Bones/joints: No acute fracture. Soft tissues: Unremarkable. Vasculature: Atherosclerotic disease of intracranial arteries. Sinuses: RIGHT maxillary retention cyst. Mastoid air cells: No mastoid effusion. Orbits: Unremarkable as visualized. IMPRESSION: 1. Nonspecific white matter changes. Acute infarction may be CT occult within first 24 hours. If a focal deficit persists, consider followup CT or MRI for further evaluation. 2. Incidental/non-acute findings are described above.
--- NOTE | 2017-09-01 21:55 | PCM.SEPTIC ---
Sepsis Progress Note - Reassessment Type Date of Evaluation: 09/01/17 Time of Evaluation: 19:00 Reassessment Type: Non-invasive reassessment - Non Invasive Reassessment Were the most recent vital sign reviewed: Yes Vital Sign (Latest): Temp Pulse Resp BP Pulse Ox 97.5 F L 82 18 120/57 L 99 09/01/17 19:23 09/01/17 19:23 09/01/17 19:23 09/01/17 19:23 09/01/17 19:01 Cardiovascular: Yes: Regular Rate, Rhythm Respiratory: Yes: Normal Breath Sounds Capillary Refill: Normal (Less than 2 sec) Skin: Normal Color
[2017-09-01] MEDS ORDERED: Ciprofloxacin 400mg/200ml D5W 400 MG/200 ML BAG IVPB SCH (22:00)
[2017-09-01 22:43] LABS: VENOUS BLOOD GAS BASE EXCESS -18.2 mmol/L (0.0-2.0); VENOUS BLOOD GAS PO2 45 mm/Hg (30-55)
[2017-09-01 22:49] LABS: VENOUS BLOOD PH 7.15 (7.32-7.43)
[2017-09-01 22:51] LABS: CALCIUM 10.1 mg/dL (8.4-10.5); MAGNESIUM 2.6 mg/dL (1.7-2.2)
[2017-09-01] MEDS ORDERED: Potassium Chloride 20 MEQ in Sodium Chloride 0.45% 1,000 ML IV SCH (23:15)
[2017-09-02 00:05] LABS: CK MB% 2.6 % (2.5-3.0); CK-MB 22.8 ng/mL (0.0-3.6); TROPONIN I 0.58 ng/mL
--- NOTE | 2017-09-02 01:11 | CP.PCM.PN ---
Subjective - Date & Time of Evaluation Date of Evaluation: 09/02/17 Time of Evaluation: 04:00 - Subjective Subjective: OVERNIGHT EVENTS: -Insulin drip and aggressive IVFs administered throughout night -IVFs switched to D5 NS +KCL after glucose<200 this AM -Serial BMPs ordered to closely monitor hypernatremia (150s) -Serum Bicarb has improved from 5 to 18 -Troponins increased from 0.13 to 0.58 (DDx: demand ischemia +/- JANET vs ACS) -Of note, patient had a positive nuclear stress test in 03/2017 -Thus, stat ASA given and therapeutic Heparin drip started -2D-echo ordered -Cardiology to evaluate patient this morning Objective - Vital Signs/Intake and Output Vital Signs (last 24 hours): Temp Pulse Resp BP Pulse Ox 97.5 F L 82 18 120/57 L 99 09/01/17 19:23 09/01/17 19:23 09/01/17 19:23 09/01/17 19:23 09/01/17 19:01 Intake and Output: 09/01/17 09/02/17 18:59 06:59 Intake Total 23 Balance 23 - Medications Medications: Current Medications Aspirin (Aspirin Supp) 300 mg RC DAILY [facility] Insulin Human Regular 100 (units/ Sodium Chloride) 100 mls @ 5 mls/hr IV .Q20H PRN; Protocol; 5 UNITS/HR PRN Reason: TITRATE PER MD ORDER Last Titration: 09/02/17 00:30 Dose: 4 units/hr, 4 mls/hr Potassium Chloride 20 meq/ (Sodium Chloride) 1,010 mls @ 150 mls/hr IV .Q6H44M [facility] Last Admin: 09/01/17 23:30 Dose: 150 mls/hr Heparin Sodium/Sodium Chloride (Heparin 36795 Units/250ml 1/2 Normal Saline) 25 ,000 units in 250 mls @ 7.239 mls/hr IV .Q24H [facility]; 12 UNITS/KG/HR PRN Reason: Protocol Pantoprazole Sodium (Protonix Inj) 40 mg IVP DAILY [facility] - Labs Labs: 09/01/17 22:25 PT 10.8 SECONDS (9.4-12.5) 09/01/17 14:12 INR 0.94 (0.93-1.08) 09/01/17 14:12 APTT 28.3 Seconds (25.1-36.5) 09/01/17 14:12
[2017-09-02] MEDS: Heparin25000 units/250ml 1/2NS 25,000 UNITS/250 ML BAG IV SCH (01:45)
[2017-09-02 02:14] LABS: VENOUS BLOOD GAS BASE EXCESS -7.1 mmol/L (0.0-2.0); VENOUS BLOOD GAS PO2 22 mm/Hg (30-55); VENOUS BLOOD PH 7.28 (7.32-7.43)
[2017-09-02 02:46] LABS: CALCIUM 10.1 mg/dL (8.4-10.5); MAGNESIUM 2.5 mg/dL (1.7-2.2)
[2017-09-02] MEDS ORDERED: Potassium Phosphate 30 MMOLE in Dextrose 5% In Water 250 ML IVPB ONE (02:59)
[2017-09-02] MEDS: Potassium Ch 20mEq in D5-1/2NS 1,000 ML IV SCH ×2 (04:48→12:10)
[2017-09-02 05:59] LABS: VENOUS BLOOD GAS BASE EXCESS -4.1 mmol/L (0.0-2.0); VENOUS BLOOD GAS PO2 41 mm/Hg (30-55); VENOUS BLOOD PH 7.31 (7.32-7.43)
[2017-09-02 07:27] LABS: ALB/GLOB RATIO 1.2 (1.1-1.8); ALBUMIN 3.8 g/dL (3.0-4.8); CALCIUM 10.1 mg/dL (8.4-10.5); MAGNESIUM 2.4 mg/dL (1.7-2.2); TROPONIN I 1.36 ng/mL
--- NOTE | 2017-09-02 07:30 | HP ---
CHIEF COMPLAINT: Fall. HISTORY OF PRESENT ILLNESS: Mr. Krishna Roman is an 82-year-old male, my private patient with a past medical history of hypertension, diabetes mellitus, coronary artery disease, arthritis, and noncompliance, who presented to the Emergency Department via EMS, complaining about altered mental status prior to arrival. As per daughter, the patient was found on the floor, status post fall, more confused than baseline, for which she called 911. Blood sugar on the scene was measured to be 500, and was noted to hit his head status post fall. Daughter was a poor historian and could not provide any history. The patient denies fevers or chills. No nausea, vomiting, or diarrhea. No hematuria or hematochezia. No swelling of the legs. No chest pain. No palpitations. PAST MEDICAL HISTORY: As above. Diabetes mellitus, coronary artery disease, congestive heart failure, hypertension, and noncompliance. FAMILY HISTORY: Father and mother, noncontributory. HABITS: Former smoker. No alcohol. No substance abuse. ALLERGIES: THE PATIENT IS ALLERGIC TO PENICILLIN. HOME MEDICATIONS: Atorvastatin, Aricept, Losartan, insulin, Lopressor, Protonix, Levemir, and Januvia. REVIEW OF SYSTEMS: The patient is seen and examined at the bedside, looking comfortable, but still having altered mental status. No fever. No chest pain. No abdominal pain. No nausea, vomiting, or diarrhea. No headache or dizziness. The patient is a poor historian. PHYSICAL EXAMINATION VITAL SIGNS: Temperature 98.6, pulse 110, respiratory rate 18, and blood pressure 120/57. HEENT: Head: Normocephalic, atraumatic. Eyes: PERRLA. Extraocular movements are intact. Conjunctivae clear. Nose patent. Mucous membranes are moist. NECK: Supple. No carotid bruit, JVD, or thyromegaly. CHEST: Bilaterally symmetrical. HEART: S1 and S2 positive. LUNGS: Clear to auscultation. ABDOMEN: Soft. Bowel sounds are present. No organomegaly. EXTREMITIES: No edema. No cyanosis. NEUROLOGIC: The patient is awake and alert, but confused. LABORATORY DATA: White blood cells 11.8, hemoglobin 10.6, hematocrit 36.2, and platelets 274. Sodium 113, potassium 6.5, BUN 47, creatinine 2.7, and glucose 1,071. ASSESSMENT AND PLAN: Mr. Krishna Roman is an 82-year-old male with leukocytosis, anemia, hyperkalemia, renal insufficiency, and hyperglycemia, who came with altered mental status, and diabetic ketoacidosis, admitted in the unit, acute kidney injury, rule out sepsis, history of hypertension, coronary artery disease, and arthritis. A CAT scan of the head is done, results are pending, but according to ER, there is no visible change. Chest x-ray done: No active disease. Endocrinology consult called with Dr. Raine Friedman, I will speak with the patient's solar development engineer, and Dr. Dunlap's consult called for altered mental status. We will monitor the patient in the unit. Procalcitonin serum routine ordered. We will follow. Gricelda Anderson MD [facility]
[2017-09-02 07:55] LABS: CK MB% 2.7 % (2.5-3.0); CK-MB 42.5 ng/mL (0.0-3.6)
[2017-09-02 08:58] LABS: CALCIUM 9.6 mg/dL (8.4-10.5); MAGNESIUM 2.3 mg/dL (1.7-2.2)
--- NOTE | 2017-09-02 09:29 | PN ---
DATE: 09/02/2017 BOARD WORKER NOTE SUBJECTIVE: The patient is resting in bed, more awake and alert this morning. No complaints of shortness of breath, cough, wheezing, chest congestion. No chest pain or abdominal pain. No diarrhea. The patient is on insulin drip with IV fluids and fingersticks are being checked frequently. His troponin increased overnight and Cardiology will see him this morning. The patient is on heparin drip and has been given aspirin. Hemodynamically, he is stable at this time. PHYSICAL EXAMINATION: VITAL SIGNS: As far as physical exam, the patient's temperature is 97.9, pulse is 83, respirations are 14 and BP is 156/82, O2 saturation is 99% on room air. HEENT: The patient's head is atraumatic, normocephalic. Eyes reactive to light. Ear, nose and throat seemed to be within normal limits. NECK: Supple. No JVD. No thyroid enlargement. No lymph nodes. HEART: Has regular rate and rhythm. Normal S1, S2. LUNGS: Reveal good breath sounds bilaterally. ABDOMEN: Soft, nontender. Decreased bowel sounds. GENITALIA AND RECTAL: Deferred. MUSCULOSKELETAL: No joint deformities. EXTREMITIES: Reveal no significant edema. NEUROLOGICALLY: He seems to be grossly intact. LABORATORY DATA: As far as his laboratories are concerned, his sodium is 151, potassium 4.1, chloride 115 with CO2 of 19 and BUN of 47, creatinine of 2.1 and a glucose of 143. The patient's troponin increased to 1.36. IMPRESSION: As far as impression, this patient has presented with diabetic ketoacidosis, possibility of sepsis with altered mental status. The patient has acute myocardial infarction with increased troponins. He continues to have metabolic acidosis and carries a diagnosis of anemia, arthritis, coronary artery disease, diabetes and hypertension. PLAN: As far as our plan, we will continue with IV fluids. Continue with the insulin drip and follow his blood sugars closely. The patient will have cardiology consult this morning and continue with heparin IV as well as aspirin. We will continue with his Protonix and Lopressor as well as his Lipitor. We will follow closely with the other consultants and the primary care doctor. Michael Dailey MD
[2017-09-02 09:34] LABS: TROPONIN I 1.39 ng/mL
[2017-09-02 09:43] LABS: CK-MB 40.3 ng/mL (0.0-3.6)
[2017-09-02] MEDS ORDERED: Insulin Detemir 100 units/ml Vial (Levemir) SC STA (11:08)
[2017-09-02] MEDS: Insulin Reg-LOW-Coverage SC SCH ×3 (11:31→21:39)
--- NOTE | 2017-09-02 11:46 | CARD ---
APPROVED REPORT EKG Measurement Heart [id number] <Conclusion> Normal sinus rhythm Left axis deviation ST & T wave abnormality, consider inferolateral ischemia Abnormal ECG
--- NOTE | 2017-09-02 11:56 | CARD ---
APPROVED REPORT EKG Measurement Heart [id number] <Conclusion> Sinus tachycardia Possible Left atrial enlargement Left anterior fascicular block Septal infarct, age undetermined Abnormal ECG
[2017-09-02 17:42] LABS: CALCIUM 9.3 mg/dL (8.4-10.5)
[2017-09-02 17:43] LABS: MAGNESIUM 2.2 mg/dL (1.7-2.2)
--- NOTE | 2017-09-02 19:16 | PN ---
DATE: ENDOCRINOLOGY FOLLOWUP NOTE LOCATION: CCU 129, room 1. SUBJECTIVE: This is an 82-year-old male with recent uncontrolled type 2 insulin-requiring diabetes, presenting here with diabetic ketoacidosis and hyperosmolar hyperglycemic state with dehydration and spurious hyperkalemia and is now being followed closely for metabolic management. His mental status has improved and is more awake and responsive at this time as noted. His latest glucose levels have ranged from 143 to 137 and 214 and 158 mg/dL. The latest chemistries this morning showed a BUN of 46, sodium 149, potassium 4.6, chloride 115, CO2 is now 19, and creatinine 2.0. His glucose was 156 at the time. The initial CO2 was less than 5 as noted. ASSESSMENT: This is an 82-year-old male with uncontrolled and decompensated type 2 insulin-requiring diabetes, presenting here with diabetic ketoacidosis and dehydration and is now improving clinically and metabolically as noted thereof. PLAN OF MANAGEMENT: As discussed with the staff, we will now discontinue his insulin drip infusion, but still continue the vigorous IV hydration as ordered to optimize his lost fluids and electrolytes as noted from the increased osmotic diuresis thereof. We will also start him on a low-dose algorithm using regular insulin with glucose testing to be done a.c. and at bedtime as ordered. We will observe his glycemic fluctuations and determine the need to restart him back on his basal and bolus insulin regimen as indicated. At home, he was taking a combination of Levemir at bedtime with Humalog given at lunchtime and dinnertime as noted and we will advance his oral intake starting at lunchtime today and start him by tonight on the basal and bolus insulin drug combination, which is more physiological as indicated. We will obtain serial chemistries and supplement accordingly as needed. We will follow this. Raine Friedman MD
[2017-09-02] MEDS: Dextrose 5%/0.45% NS 1,000 ML IV SCH (20:00)
--- NOTE | 2017-09-03 00:15 | CON ---
DATE: 09/02/2017 REFERRING PHYSICIAN: Dr. Rasheed Holland. REASON FOR THE CONSULTATION: Followup, cardiac evaluation, positive troponin, non-ST elevation myocardial infarction. BRIEF CLINICAL HISTORY: An 82-year-old male with a history of diabetes, coronary artery disease, details unknown, noncompliance with the medication, brought by the family after found to be altered mental status. The patient is confused on two-point Cicero restraint. Denies any chest pain, but troponin is positive. Not in any apparent distress. PAST HISTORY: Significant for diabetes, coronary artery disease, as mentioned in the H&P of Dr. Anderson, details unknown. History of congestive heart failure, hypertension, and also mentioned a noncompliance with the medication. SOCIAL HISTORY: No history of smoking, was probably ex-smoker. ALLERGIES: ALLERGY TO PENICILLIN. CURRENT MEDICATIONS: Atorvastatin, Aricept, losartan, insulin, Lopressor, Protonix, Levemir, Januvia, Aricept. Previous cardiac workup as follows, the patient had a stress test on 04/09/2017 that shows abnormal myocardial perfusion study, partially reversible distant anteroseptal defect suspicious for ischemia, dated 04/10/2017, ejection fraction reported as 43%. REVIEW OF SYSTEMS: As per the HPI. PHYSICAL EXAMINATION: As follows, VITAL SIGNS: Temperature afebrile, heart rate 82, and blood pressure 130/81. HEENT: PERRLA. Extraocular muscles intact. NECK: Supple. No carotid bruits or thyromegaly. CHEST: Clear to auscultation. HEART: S1 and S2, regular. ABDOMEN: Soft. EXTREMITIES: Clubbing and cyanosis, negative. LABORATORY DATA: Blood workup as follows: WBC 11.8, hemoglobin 10.6, hematocrit 36.2, platelet count 274. Chemistry shows sodium 149, potassium 4.6, chloride 115, carbon dioxide 19, anion gap of 20, BUN 46, and creatinine 2.0. IMPRESSION: Acute kidney injury with creatinine clearance 20 mL. Troponin positive, it could be secondary two underlying coronary artery disease as the patient has abnormal stress test versus worsening further renal insufficiency, altered mental status, CPK 2000 on admission. In history and physical, it is mentioned that the patient was found on the floor status post fall and confused, probably due to rhabdomyolysis secondary to fall. Acute kidney disease most likely secondary to rhabdomyolysis. RECOMMENDATIONS: Since the patient had altered mental status, an EKG was normal. No complaints of chest pain. We will wait the symptoms improve, we will continue excessively treat medically, we will start aspirin and Plavix, low-dose beta-robert as the blood pressure is tolerated, heparin, and further recommendation during the hospital course. We will follow with you. Once the patient is stabilized and mentation improved, consider cardiac catheterization. We will follow with you. We will resume the diet with heart healthy diet. We will follow up serial CPK and troponin in the morning as well as hemoglobin A1c and lipid profile and TSH. The patient admitted with diabetic ketoacidosis also with carbon dioxide 5 on admission. Severe metabolic acidosis secondary to diabetic ketoacidosis. Thank you Dr. Anderson for providing us the opportunity in taking care with Abel Krishna. Rasheed Holland MD
[2017-09-03] MEDS ORDERED: Sod Polystyrene Sulf 15 gm/60 ml Susp PO ONE (00:24)
[2017-09-03] MEDS: Heparin25000 units/250ml 1/2NS 25,000 UNITS/250 ML BAG IV SCH (02:12)
[2017-09-03] MEDS: Dextrose 5%/0.45% NS 1,000 ML IV SCH (02:29)
--- NOTE | 2017-09-03 03:07 | CON ---
DATE: HISTORY OF PRESENT ILLNESS: This is an 82-year-old black male with a past medical history of hypertension, diabetes, coronary artery disease, arthritis, and patient was found confused by the daughter on the floor and she called 911 and brought him here and called to evaluate the patient. CAT scan of the head was done, which was reported no bleed, no infarct. His blood sugar was high on examination. PAST MEDICAL HISTORY: As above. REVIEW OF SYSTEMS: A 10-point review of systems was negative. PHYSICAL EXAMINATION: VITAL SIGNS: Blood pressure 147/73. HEENT: Normocephalic, atraumatic. NECK: Supple. NEUROLOGIC: Awake, oriented to self and place. Cranial nerves II through XII were tested. Pupils reactive. EOM intact. Visual field full. No facial asymmetry. Tongue midline. Motor examination, moves all the extremities equally. Tone normal. Deep tendon reflexes are 1+. Both plantars are downgoing. Sensory appears intact. Cerebellar, gait deferred. IMPRESSION: Encephalopathy possibly toxic metabolic and patient has multiple medical problems, anemia, renal insufficiency, hyperglycemia and had diabetic ketoacidosis, admitted with altered mental status and CAT scan did not show any bleed or stroke, continue present management. We will follow up. Hasmukh Dunlap MD
--- NOTE | 2017-09-03 05:00 | PN ---
DATE: SUBJECTIVE: Patient is an 82-year-old male. Patient is seen and examined at the bedside. Sleepy, arousable. Patient is not a good historian, No fever. No chills. Does not look like in distress. PHYSICAL EXAMINATION: VITAL SIGNS: Temperature 97.5, pulse 82, respiratory rate 18, blood pressure 120/57 and pulse oximetry 99%. HEENT: Head is normocephalic, atraumatic. Eyes closed. Nose is patent. Mucous membranes are moist. NECK: Supple. No carotid bruits. No JVD. No thyromegaly. CHEST: Bilaterally symmetrical. HEART: S1 and S2 positive. LUNGS: Clear to auscultation. ABDOMEN: Soft. Bowel sounds present. No organomegaly. EXTREMITIES: No edema. No cyanosis. NEUROLOGIC: The patient is sleepy, but arousable. MEDICATIONS: Aspirin, insulin, potassium, heparin, pantoprazole. LABORATORY DATA: Sodium 147, potassium 4.1, BUN 47, creatinine 2.5, glucose 564. ASSESSMENT AND PLAN: Mr. Abel Keller is an 82-year-old male with hyperglycemia, renal insufficiency, hyperchloremia, leukocytosis, anemia, proteinuria, hematuria. Seen by bat carrier, Dr. Raine Friedman, and Dr. Rodriguez, the roll tension tester. Senior Applications Engineer is on the case also. Patient has diabetic ketoacidosis, possibility of sepsis with altered mental status. Patient has acute myocardial infarction with increased troponin, history of arthritis, coronary artery disease, hypertension, and noncompliance. We will continue IV fluid. Continue insulin drip. Follow up his blood sugar very closely as per bat carrier. Senior Applications Engineer is on the case. Patient is getting continuous heparin as well as aspirin. Continue Protonix for GI prophylaxis, Lopressor for hypertension, Lipitor for hypercholesterolemia. Seen by Dr. Holland, die storage clerk. EKG is abnormal with sinus tachycardia, possible left atrial enlargement, left anterior fascicular block, and septal infarct - age undetermined. We will continue present treatment. GI and DVT prophylaxes. Repeat labs. We will follow. Gricelda Anderson MD [facility] # [id number]
[2017-09-03 06:31] LABS: EOS % 0.1 % (1.5-5.0); GRAN # 6.65 (1.4-6.5); GRAN % 79.1 % (50.0-68.0); HEMOGLOBIN 9.9 g/dL (14.0-18.0); LYMPH # 1.1 (1.2-3.4); LYMPH % 13.1 % (22.0-35.0); MEAN CELL VOLUME 82.5 fl (80.0-105.0); MEAN CORPUSCULAR HEMOGLOBIN 27.1 pg (25.0-35.0); MEAN CORPUSCULAR HGB CONC 32.9 g/dl (31.0-37.0); MONO # 0.7 (0.1-0.6); MONO % 7.7 % (1.0-6.0); RBC 3.65 10^6/uL (3.5-6.1); RED CELL DISTRIBUTION WIDTH 15.7 % (11.5-14.5); WHITE BLOOD COUNT 8.4 10^3/ul (4.5-11.0)
[2017-09-03 06:52] LABS: IRON 45 ug/dL (45-180)
--- NOTE | 2017-09-03 06:54 | CP.PCM.PN ---
Subjective - Date & Time of Evaluation Date of Evaluation: 09/03/17 Time of Evaluation: 06:54 - Subjective Subjective: S: Patient had K level of 5.5.\ EKG checked:No peaked tall waves noticed. Patient has no complaints. Medical record was reviewed. O:VSS. Not in distress. LUNGS:Normal breathing pattern. A: Hyperkalemia. P:Kayexalate 15 Gm po x 1. EKG. Objective - Vital Signs/Intake and Output Vital Signs (last 24 hours): Temp Pulse Resp BP Pulse Ox 97.5 F L 58 L 20 112/47 L 99 09/03/17 04:00 09/03/17 05:00 09/03/17 04:00 09/03/17 05:00 09/03/17 05:00 Intake and Output: 09/02/17 09/03/17 18:59 06:59 Intake Total 2218.1 148.4 Output Total 200 Balance 2018.1 148.4 - Medications Medications: Current Medications Aspirin (Aspirin Supp) 300 mg RC DAILY [facility] Last Admin: 09/02/17 09:24 Dose: 300 mg Atorvastatin Calcium (Lipitor) 80 mg PO DIN [facility] Last Admin: 09/02/17 18:17 Dose: 80 mg Clopidogrel Bisulfate (Plavix) 75 mg PO DAILY [facility] Glimepiride (Amaryl) 4 mg PO ACBD [facility] Heparin Sodium/Sodium Chloride (Heparin 69675 Units/250ml 1/2 Normal Saline) 25 ,000 units in 250 mls @ 7.239 mls/hr IV .Q24H [facility]; 12 UNITS/KG/HR PRN Reason: Protocol Last Admin: 09/03/17 02:12 Dose: 7 units/kg/hr, 4.223 mls/hr Dextrose/Sodium Chloride (Dextrose 5%/0.45% Ns 1000 Ml) 1,000 mls @ 150 mls/hr IV .Q6H40M [facility] Last Admin: 09/03/17 02:29 Dose: 150 mls/hr Insulin Human Regular (Humulin R Low) 0 units SC ACHS [facility] PRN Reason: Protocol Last Admin: 09/02/17 21:39 Dose: Not Given Metoprolol Tartrate (Lopressor) 25 mg PO BID [facility] Last Admin: 09/02/17 18:17 Dose: 25 mg Pantoprazole Sodium (Protonix Ec Tab) 40 mg PO 0600 [facility] - Labs Labs: 09/03/17 05:30 09/02/17 17:20 PT 10.8 SECONDS (9.4-12.5) 09/01/17 14:12 INR 0.94 (0.93-1.08) 09/01/17 14:12 APTT 59.9 Seconds (25.1-36.5) H 09/03/17 01:05
[2017-09-03 06:55] LABS: LDL CHOLESTEROL 71 mg/dL (0-129)
[2017-09-03 07:02] LABS: % IRON SATURATION 25 % (20-55); TOTAL IRON BINDING CAPACITY 184 ug/dL (261-462)
[2017-09-03 07:04] LABS: ALB/GLOB RATIO 1.1 (1.1-1.8); ALBUMIN 3.4 g/dL (3.0-4.8); ALT/SGPT 37 U/L (7-56); AST/SGOT 162 U/L (17-59); BLOOD UREA NITROGEN 47 mg/dL (7-21); CALCIUM 9.3 mg/dL (8.4-10.5); GFR AFRICAN-AMERICAN 39; GFR NON-AFRICAN AMERICAN 32; HDL CHOLESTEROL 82 mg/dL (29-60); MAGNESIUM 2.1 mg/dL (1.7-2.2); TROPONIN I 0.93 ng/mL
[2017-09-03] MEDS ORDERED: Sodium Chloride 0.45% 1,000 ML IV SCH (08:15)
[2017-09-03] MEDS ORDERED: Insulin Lispro (humaLOG) MIX 75/25(10 ml) SC SCH ×2 (08:39→11:30)
[2017-09-03] MEDS ORDERED: Insulin Reg-LOW-Coverage SC SCH ×2 (08:39→11:30)
[2017-09-03 09:35] LABS: INR 1.1 (0.93-1.08); PARTIAL THROMBOPLASTIN TIME 50.5 Seconds (25.1-36.5); PROTHROMBIN TIME 12.7 SECONDS (9.4-12.5)
[2017-09-03 09:37] LABS: CK MB% 1.3 % (2.5-3.0); CK-MB 27.2 ng/mL (0.0-3.6)
--- NOTE | 2017-09-03 09:46 | CON ---
PIPE THREADING MACHINE OPERATOR NOTE DATE: 09/01/2017 REQUESTING PHYSICIAN: Dr. Anderson CHIEF COMPLAINT: The patient presented with altered mental status. Family members state that he had fallen at home question whether he hit his head and noted to be in DKA. HISTORY OF PRESENT ILLNESS: Mr. Keller is a 82-year-old male with a history of hypertension, diabetes, coronary artery disease and arthritis. The patient presented to the emergency room very lethargic, poorly responsive and as per family stated that he had fallen and possibly hit his head. There was no lacerations. No swelling around the head. The patient was also noted to have DKA with severe metabolic acidosis and at this time it is noted that he is hypothermic but his blood pressure is stable. There may be a component of sepsis because it is noted that he has increased white count. Family is at the bedside. The patient's daughter is a very poor historian. Seems like there is no vomiting and no diarrhea and stated as no chest or abdominal pain. PAST MEDICAL HISTORY: As above. ALLERGIES: HE HAS ALLERGIES TO PENICILLIN. MEDICATIONS: His medications can be evaluated as per the nurse's intake form. SOCIAL HISTORY: The patient is a former smoker. No EtOH abuse. No drug abuse. FAMILY HISTORY: Noncontributory. REVIEW OF SYSTEMS: CONSTITUTIONAL: Note that on constitutional he is hypothermic. HEENT: Within normal limits. RESPIRATORY: All normal. CARDIOVASCULAR: All normal. GASTROINTESTINAL: All normal. : All normal. MUSCULOSKELETAL: All normal. NEUROPSYCHIATRIC: The patient is very lethargic but moving all extremities. ENDOCRINE: All normal. HEMATOLOGIC: All normal. IMMUNOLOGIC: All normal. INTEGRITY: All normal. PHYSICAL EXAMINATION: VITAL SIGNS: As far as his physical exam note that his temperature is 94.5, his pulse is 107, respirations are 18 and BP is 147/73, O2 saturation on 2 L of nasal cannula is 98%. HEENT: The patient's head is atraumatic, normocephalic. Eyes, reactive to light. Ears, nose, and throat seem to be within normal limits. NECK: Supple. No JVD. No thyroid enlargement. No lymph nodes. HEART: Has regular rate and rhythm. Normal S1, S2 with tachycardia. LUNGS: His Lungs reveal good breath sounds bilaterally. ABDOMEN: Abdomen is soft. Decreased bowel sounds. GENITALIA AND RECTAL: Deferred. MUSCULOSKELETAL: No joint deformities. EXTREMITIES: Reveal trace lower extremity edema. NEUROLOGICALLY: He seemed to be grossly intact. LABORATORY DATA: As far as his laboratories, his white count is 11.8, hemoglobin is 10.6 and hematocrit 36.2 with platelets of 274,000. Sodium is 139, potassium 6.5, chloride 99, CO2 of 5, with a BUN of 47, creatinine of 2.7, and a glucose of 1071. As far as his chest x-ray, it is no infiltrates. Also note that the patient has elevated troponin of 0.13. IMPRESSION: As far as my impression, this patient has diabetic ketoacidosis with severe metabolic acidosis, possible sepsis with hypothermia and mildly elevated white count. The patient has a possible myocardial infarction with elevated troponins. It is noted that he has acute renal failure, possible dehydration, and presented with a fall and has altered mental status. CT scan of the head is pending. The patient has history of hypertension, diabetes, coronary artery disease, arthritis, and anemia. PLAN: As far as our plan, we will consult Dr. Dunlap, Neuro; Dr. Holland for Cardiology; and Dr. Friedman for the DKA. The patient is scheduled for CT scan of the head. He has been given Cipro and vancomycin for possible sepsis and is getting IV fluids of normal saline and an insulin drip. The patient's laboratories will be followed closely and corrected as needed. We will continue with O2 via nasal cannula. The patient has been admitted to the intensive care unit. We will continue to follow closely and treat aggressively along with the other consultants and the primary care doctor. Michael Dailey MD
--- NOTE | 2017-09-03 09:53 | CON ---
DATE: 09/01/2017 ENDOCRINOLOGY CONSULT LOCATION: In CCU 129, room 1. HISTORY OF PRESENT ILLNESS: This is an 82-year-old male with known history of type 2 insulin-requiring diabetes, now admitted with altered mental status and a recent fall at home, with supervening hyperglycemic accelerations and is now being referred for a diabetic evaluation and management. PAST MEDICAL HISTORY: History of type 2 insulin-requiring diabetes, on combination therapy with Levemir taken as 25 units subcu daily and Humalog given as 8 units b.i.d. at lunch and dinner time with Januvia taken as 50 mg once daily as noted. History of hypertensive cardiovascular disease and dyslipidemia, history of coronary artery disease, and peripheral arterial disease and vasculopathy, history of early dementia. FAMILY HISTORY: Positive for hypertension and diabetes. SOCIAL HISTORY: The patient has supportive family. Has a previous history of smoking. REVIEW OF SYSTEMS: As per the family, he was found to be more confused and disoriented, with an apparent fall at home and previous near syncopal events, also has had recent generalized body weakness with increasing hypersomnolence and lethargy and visual blurring. No chest pains, but has been progressively short of breath with paroxysmal nocturnal dyspnea. His oral intake has been variable and suboptimal with nausea, dyspepsia and also marked polyuria, nocturia and recent urinary incontinence. PHYSICAL EXAMINATION: GENERAL: He is an average built male, looking chronically ill and emaciated. VITAL SIGNS: Blood pressure of 150/90, pulse of 100 beats per minute and regular, temperature 96, respirations 20. Height is 510, weight is 133 pounds. HEENT: Head: Normocephalic. Eyes: Anicteric with pink conjunctivae. Funduscopy not possible at this time. Ears, nose and throat otherwise normal. NECK: Supple. Thyroid gland is normal in size. No carotid bruits or any cervical adenopathy. CARDIOPULMONARY: Adynamic precordium. S1, S2 is rapid and regular. LUNGS: Show scattered rhonchi. ABDOMEN: Flat, soft with positive bowel sounds. EXTREMITIES: No peripheral edema. Pulses are +2 bilaterally. LABORATORY DATA: The chemistry showed a BUN of 47, sodium 139, potassium 6.5, chloride 99, CO2 is 5, glucose is , creatinine is 2.7. ASSESSMENT: This is an 82-year-old male with uncontrolled and decompensated type 2 insulin-requiring diabetes, presenting here with diabetic ketoacidosis and associated hyperosmolar hyperglycemic state with dehydration and prerenal azotemia with spurious hyperkalemia and a recent syncopal event at home as noted. He has also significant history of diabetic microvascular complications of retinopathy, polyneuropathy and nephropathy with diabetic macrovascular complications of coronary artery disease and peripheral arterial disease and vasculopathy. PLAN: Plan of management as discussed with the staff. Plan of management concurred with the present medical management with intensive insulin therapy using an insulin drip infusion as ordered. We will also continue the vigorous IV hydration as given and we will obtain serial chemistries and supplement accordingly as needed. As the metabolic acidosis resolved with the CO2 at least above 18, then we can switch him back to a more physiologic basal and bolus insulin drug combination as given at home with the modified dosing to optimize metabolic control accordingly. We will obtain serial chemistries at this time and supplement accordingly as needed. We will also discuss with the family regarding the patient's recent mental state and dementia, especially regarding the accuracy and safety of giving his own insulin regimen and concomitant glucose monitoring at home. We will consult our diabetic nurse educator also to discuss with the family regarding the upper mentioned and also with our dietitians for nutritional evaluation especially with his current undernutrition as noted thereof. Raine Friedman MD
--- NOTE | 2017-09-03 10:26 | CP.PCM.CON ---
History of Present Illness - History of Present Illness History of Present Illness: 82 year old male with PMH of HTN, DM, CAD, arthritis was brought in [place] [facility] [place] of a fall at home and the patient was found on the floor, confused. He was noted to have hyperglycemia in the ED and was noted to have elevated Troponins and mildly elevated WBC count. There was no note of vomiting, no diarrhea, no convulsions outside of the hospital. Currently the patient is noted to be awake and alert, oriented to 2 spheres, denies chills, no sore throat, no cough, no chest pain currently, no abdominal pain, no diarrhea, no dysuria, no rhinorrhea, no headache or dizziness, no blurring of vision. PCT is noted to be elevated. Infectious diseases consult is requested to further evaluate and manage. Review of Systems - Review of Systems All systems: reviewed and no additional remarkable complaints except (as per HPI ) Past Patient History - Infectious Disease Hx of Infectious Diseases: None - Past Social History Smoking Status: Former Smoker - CARDIAC Hx Pacemaker: No - PULMONARY Hx Respiratory Disorders: No - NEUROLOGICAL Hx Paralysis: No - HEENT Hx HEENT Problems: No - RENAL Hx Chronic Kidney Disease: No - ENDOCRINE/METABOLIC Hx Endocrine Disorders: Yes Hx Diabetes Mellitus Type 2: Yes - HEMATOLOGICAL/ONCOLOGICAL Hx Blood Transfusions: No - INTEGUMENTARY Hx Dermatological Problems: No - MUSCULOSKELETAL/RHEUMATOLOGICAL Hx Musculoskeletal Disorders: Yes - GASTROINTESTINAL Hx Gastrointestinal Disorders: No - GENITOURINARY/GYNECOLOGICAL Hx Genitourinary Disorders: No - PSYCHIATRIC Hx Emotional Abuse: No Hx Physical Abuse: No Hx Substance Use: No - SURGICAL HISTORY Hx Surgeries: No - ANESTHESIA Hx Anesthesia Reactions: No Hx Malignant Hyperthermia: No Meds Allergies/Adverse Reactions: Allergies Allergy/AdvReac Type Severity Reaction Status Date / Time Penicillins Allergy ITCHING Verified 09/01/17 17:20 - Medications Medications: Current Medications Aspirin (Aspirin Supp) 300 mg RC DAILY [facility] Last Admin: 09/02/17 09:24 Dose: 300 mg Atorvastatin Calcium (Lipitor) 80 mg PO DIN [facility] Last Admin: 09/02/17 18:17 Dose: 80 mg Clopidogrel Bisulfate (Plavix) 75 mg PO DAILY [facility] Glimepiride (Amaryl) 4 mg PO ACBD [facility] Heparin Sodium/Sodium Chloride (Heparin 86113 Units/250ml 1/2 Normal Saline) 25 ,000 units in 250 mls @ 7.239 mls/hr IV .Q24H [facility]; 12 UNITS/KG/HR PRN Reason: Protocol Last Admin: 09/03/17 02:12 Dose: 7 units/kg/hr, 4.223 mls/hr Sodium Chloride (Sodium Chloride 0.45%) 1,000 mls @ 100 mls/hr IV .Q10H [facility] Insulin Detemir (Levemir) 30 unit SC HS [facility] Insulin Human Regular (Humulin R Low) 0 units SC ACHS [facility] PRN Reason: Protocol Last Admin: 09/03/17 08:54 Dose: 4 units Insulin Lispro Protam/Lispro Human (Humalog Mix 75/25) 10 units SC AC [facility] Last Admin: 09/03/17 08:55 Dose: 10 units Metoprolol Tartrate (Lopressor) 25 mg PO BID [facility] Last Admin: 09/02/17 18:17 Dose: 25 mg Pantoprazole Sodium (Protonix Ec Tab) 40 mg PO 0600 [facility] Physical Exam - Constitutional Appears: Non-toxic - Head Exam Head Exam: NORMAL INSPECTION - ENT Exam ENT Exam: Mucous Membranes Moist - Neck Exam Neck exam: Negative for: Lymphadenopathy, Meningismus - Respiratory Exam Respiratory Exam: Decreased Breath Sounds - Cardiovascular Exam Cardiovascular Exam: +S1, +S2 - GI/Abdominal Exam GI & Abdominal Exam: Soft. absent: Tenderness Results - Vital Signs Recent Vital Signs: Last Vital Signs Temp 97.5 F L 09/03/17 04:00 Pulse 65 09/03/17 07:00 Resp 24 09/03/17 06:01 BP 113/68 09/03/17 07:00 Pulse Ox 99 09/03/17 07:00 - Labs Result Diagrams: 09/03/17 05:30 09/03/17 05:30 Labs: Laboratory Results - last 24 hr 09/01/17 09/02/17 09/02/17 18:00 05:30 08:30 WBC RBC Hgb Hct MCV MCH MCHC RDW Plt Count MPV Gran % Lymph % (Auto) [place] % (Auto) Eos % (Auto) Baso % (Auto) Gran # Lymph # (Auto) [place] # (Auto) Eos # (Auto) Baso # (Auto) APTT Sodium Potassium Chloride Carbon Dioxide Anion Gap BUN Creatinine Est GFR ( Amer) Est GFR (Non-Af Amer) POC Glucose (mg/dL) Random Glucose Hemoglobin A1c 11.8 H D Calcium Phosphorus Magnesium Iron TIBC % Saturation Total Bilirubin AST ALT Alkaline Phosphatase Lactate Dehydrogenase Total Creatine Kinase CK-MB (CK-2) 40.3 H Troponin I Total Protein Albumin Globulin Albumin/Globulin Ratio Triglycerides Cholesterol LDL Cholesterol Direct HDL Cholesterol Procalcitonin 2.88 H TSH 3rd Generation 09/02/17 09/02/17 09/02/17 09:29 10:31 11:22 WBC RBC Hgb Hct MCV MCH MCHC RDW Plt Count MPV Gran % Lymph % (Auto) [place] % (Auto) Eos % (Auto) Baso % (Auto) Gran # Lymph # (Auto) [place] # (Auto) Eos # (Auto) Baso # (Auto) APTT Sodium Potassium Chloride Carbon Dioxide Anion Gap BUN Creatinine Est GFR ( Amer) Est GFR (Non-Af Amer) POC Glucose (mg/dL) 214 H 158 H 161 H Random Glucose Hemoglobin A1c Calcium Phosphorus Magnesium Iron TIBC % Saturation Total Bilirubin AST ALT Alkaline Phosphatase Lactate Dehydrogenase Total Creatine Kinase CK-MB (CK-2) Troponin I Total Protein Albumin Globulin Albumin/Globulin Ratio Triglycerides Cholesterol LDL Cholesterol Direct HDL Cholesterol Procalcitonin TSH 3rd Generation 09/02/17 09/02/17 09/02/17 15:56 17:20 18:15 WBC RBC Hgb Hct MCV MCH MCHC RDW Plt Count MPV Gran % Lymph % (Auto) [place] % (Auto) Eos % (Auto) Baso % (Auto) Gran # Lymph # (Auto) [place] # (Auto) Eos # (Auto) Baso # (Auto) APTT 92.7 H Sodium 147 Potassium 5.5 H Chloride 117 H Carbon Dioxide 16 L Anion Gap 20 BUN 46 H Creatinine 2.0 H Est GFR ( Amer) 39 Est GFR (Non-Af Amer) 32 POC Glucose (mg/dL) 214 H Random Glucose 220 H Hemoglobin A1c Calcium 9.3 Phosphorus 3.4 Magnesium 2.2 Iron TIBC % Saturation Total Bilirubin AST ALT Alkaline Phosphatase Lactate Dehydrogenase Total Creatine Kinase CK-MB (CK-2) Troponin I Total Protein Albumin Globulin Albumin/Globulin Ratio Triglycerides Cholesterol LDL Cholesterol Direct HDL Cholesterol Procalcitonin TSH 3rd Generation 09/02/17 09/03/17 09/03/17 21:35 01:05 05:30 WBC RBC Hgb Hct MCV MCH MCHC RDW Plt Count MPV Gran % Lymph % (Auto) [place] % (Auto) Eos % (Auto) Baso % (Auto) Gran # Lymph # (Auto) [place] # (Auto) Eos # (Auto) Baso # (Auto) APTT 59.9 H Sodium 146 Potassium 4.7 Chloride 115 H Carbon Dioxide 20 L Anion Gap 16 BUN 47 H Creatinine 2.0 H Est GFR ( Amer) 39 Est GFR (Non-Af Amer) 32 POC Glucose (mg/dL) 215 H Random Glucose 347 H* D Hemoglobin A1c Calcium 9.3 Phosphorus 3.0 Magnesium 2.1 Iron TIBC % Saturation Total Bilirubin 0.3 AST 162 H D ALT 37 Alkaline Phosphatase 133 H Lactate Dehydrogenase 1054 H Total Creatine Kinase 2129 H CK-MB (CK-2) Troponin I 0.93 H* D Total Protein 6.5 Albumin 3.4 Globulin 3.1 Albumin/Globulin Ratio 1.1 Triglycerides 141 Cholesterol 211 H LDL Cholesterol Direct 71 HDL Cholesterol 82 H Procalcitonin TSH 3rd Generation 09/03/17 09/03/17 09/03/17 05:30 05:30 05:30 WBC 8.4 D RBC 3.65 Hgb 9.9 L Hct 30.1 L MCV 82.5 D MCH 27.1 MCHC 32.9 RDW 15.7 H Plt Count 203 MPV 10.0 Gran % 79.1 H Lymph % (Auto) 13.1 L [place] % (Auto) 7.7 H Eos % (Auto) 0.1 L Baso % (Auto) 0.0 Gran # 6.65 H Lymph # (Auto) 1.1 L [place] # (Auto) 0.7 H Eos # (Auto) 0.0 Baso # (Auto) 0.00 APTT Sodium Potassium Chloride Carbon Dioxide Anion Gap BUN Creatinine Est GFR ( Amer) Est GFR (Non-Af Amer) POC Glucose (mg/dL) Random Glucose Hemoglobin A1c Calcium Phosphorus Magnesium Iron 45 TIBC 184 L % Saturation 25 Total Bilirubin AST ALT Alkaline Phosphatase Lactate Dehydrogenase Total Creatine Kinase CK-MB (CK-2) Troponin I Total Protein Albumin Globulin Albumin/Globulin Ratio Triglycerides Cholesterol LDL Cholesterol Direct HDL Cholesterol Procalcitonin TSH 3rd Generation 3.85 09/03/17 07:36 WBC RBC Hgb Hct MCV MCH MCHC RDW Plt Count MPV Gran % Lymph % (Auto) [place] % (Auto) Eos % (Auto) Baso % (Auto) Gran # Lymph # (Auto) [place] # (Auto) Eos # (Auto) Baso # (Auto) APTT Sodium Potassium Chloride Carbon Dioxide Anion Gap BUN Creatinine Est GFR ( Amer) Est GFR (Non-Af Amer) POC Glucose (mg/dL) 324 H Random Glucose Hemoglobin A1c Calcium Phosphorus Magnesium Iron TIBC % Saturation Total Bilirubin AST ALT Alkaline Phosphatase Lactate Dehydrogenase Total Creatine Kinase CK-MB (CK-2) Troponin I Total Protein Albumin Globulin Albumin/Globulin Ratio Triglycerides Cholesterol LDL Cholesterol Direct HDL Cholesterol Procalcitonin TSH 3rd Generation Assessment & Plan - Assessment and Plan (Free Text) Plan: Assessment S/P systemic inflammatory response syndrome, consider due to acute rhabdomyolysis after a fall, with possible acute myocardial infarction and acute toxic-metabolic encephalopathy; so far no source of infection identified HTN DM CAD arthritis Plan Will monitor the patient off antibiotics; although PCT is elevated, this may increase in patients with IL; also, CXR does not show pneumonia, patient does not have fever, WBC count has normalized, urinalysis does not show pyuria, blood cx are negative x 1 day
--- NOTE | 2017-09-03 10:43 | CP.PCM.PN ---
<Jessi Solano - Last Filed: 09/03/17 10:40> Subjective - Date & Time of Evaluation Date of Evaluation: 09/03/17 Time of Evaluation: 10:40 - Subjective Subjective: ICU Progress Note for Angela Mo PGY2 Patient seen and examined at bedside. As per nursing staff, there were no acute overnight events. Patient is A&O x 2 today. He reports feeling well today. He denies chest pain, shortness of breath, nausea/vomiting/diarrhea, numbness/ tingling fever/chills, dysuria or hematuria. Objective - Vital Signs/Intake and Output Vital Signs (last 24 hours): Temp Pulse Resp BP Pulse Ox 97.5 F L 65 24 113/68 99 09/03/17 04:00 09/03/17 07:00 09/03/17 06:01 09/03/17 07:00 09/03/17 07:00 Intake and Output: 09/03/17 09/03/17 06:59 18:59 Intake Total 2178.4 Output Total 200 Balance 1978.4 - Medications Medications: Current Medications Aspirin (Aspirin Supp) 300 mg RC DAILY [facility] Last Admin: 09/02/17 09:24 Dose: 300 mg Atorvastatin Calcium (Lipitor) 80 mg PO DIN [facility] Last Admin: 09/02/17 18:17 Dose: 80 mg Clopidogrel Bisulfate (Plavix) 75 mg PO DAILY [facility] Glimepiride (Amaryl) 4 mg PO ACBD [facility] Heparin Sodium/Sodium Chloride (Heparin 41462 Units/250ml 1/2 Normal Saline) 25 ,000 units in 250 mls @ 7.239 mls/hr IV .Q24H [facility]; 12 UNITS/KG/HR PRN Reason: Protocol Last Admin: 09/03/17 02:12 Dose: 7 units/kg/hr, 4.223 mls/hr Sodium Chloride (Sodium Chloride 0.45%) 1,000 mls @ 100 mls/hr IV .Q10H [facility] Insulin Detemir (Levemir) 30 unit SC HS [facility] Insulin Human Regular (Humulin R Low) 0 units SC ACHS [facility] PRN Reason: Protocol Last Admin: 09/03/17 08:54 Dose: 4 units Insulin Lispro Protam/Lispro Human (Humalog Mix 75/25) 10 units SC AC [facility] Last Admin: 09/03/17 08:55 Dose: 10 units Metoprolol Tartrate (Lopressor) 25 mg PO BID [facility] Last Admin: 09/02/17 18:17 Dose: 25 mg Pantoprazole Sodium (Protonix Ec Tab) 40 mg PO 0600 [facility] - Labs Labs: 09/03/17 05:30 09/03/17 05:30 PT 12.7 SECONDS (9.4-12.5) H 09/03/17 08:30 INR 1.10 (0.93-1.08) H 09/03/17 08:30 APTT 50.5 Seconds (25.1-36.5) H 09/03/17 08:30 - Constitutional Appears: No Acute Distress - Head Exam Head Exam: ATRAUMATIC, NORMAL INSPECTION, NORMOCEPHALIC - Eye Exam Eye Exam: Normal appearance, PERRL Pupil Exam: NORMAL ACCOMODATION, PERRL - ENT Exam ENT Exam: Mucous Membranes Moist - Neck Exam Neck Exam: Full ROM - Respiratory Exam Respiratory Exam: Rales (scant rales at bases ), NORMAL BREATHING PATTERN. absent: Rhonchi, Wheezes, Stridor - Cardiovascular Exam Cardiovascular Exam: REGULAR RHYTHM, +S1, +S2. absent: Gallop, Rubs, Murmur - GI/Abdominal Exam GI & Abdominal Exam: Soft, Normal Bowel Sounds. absent: Rigid, Tenderness, Mass , Rebound - Extremities Exam Extremities Exam: Normal Inspection. absent: Calf Tenderness, Pedal Edema - Neurological Exam Neurological Exam: Alert, Awake, CN II-XII Intact - Psychiatric Exam Psychiatric exam: Normal Affect, Normal Mood - Skin Skin Exam: Dry, Warm Assessment and Plan - Assessment and Plan (Free Text) Assessment: This is 82yo M with PMH HTN, CAD, CHF, and DM who was admitted for AMS secondary to DKA and NSTEMI. AMS has improved. Patient is A&O to person and place. Plan: Neuro: AMS resolved Awake and Alert. A&O x 2 Maintain normothermia Avoid Sedatives Neuro consulted- recs appreciated EEG ordered CT Head negative CV: NSTEMI Hx of HTN, CHF and CAD Troponin trending down Cardio consulted- continue hep drip. No plan for cath Maintain MAP >65 Continue ASA, Lopressor, and Lipitor Pulm: Patient comfortable on room air Maintain spO2>92% HOB elevated, aspiration precaution GI: Pt start on diet Heme: hgb stable- no overt signs of bleeding continue to monitor Nephro: JANET can be secondary to DKA/dehydration NS@100 as per Endo Maintain euvolemia Monitor I&O Will continue to monitor electrolytes and replace as needed ID: SIRS can be secondary to DKA/NSTEMI PCT elevated- which can be seen in elevated troponin and Cr. ID consulted CXR negative, U/A no sign of infection Flu negative Continue to monitor Endo: DKA- improved Endo on consult As per Endo- start pt on diet, place at NS@100. Humalog 10U AC, Levemir 30U HS Maintain euglycemia (140-180s) GI ppx: Protonix DVT ppx: Heparin drip Dispo: Patient is HD stable at this time and will be transferred to telemetry Case seen, discussed and reviewed with attending. Angela Solano PGY2 <Alex Rodrigues - Last Filed: 09/03/17 11:31> Objective - Vital Signs/Intake and Output Vital Signs (last 24 hours): Temp Pulse Resp BP Pulse Ox 97.5 F L 65 24 113/68 99 09/03/17 04:00 09/03/17 07:00 09/03/17 06:01 09/03/17 07:00 09/03/17 07:00 Intake and Output: 09/03/17 09/03/17 06:59 18:59 Intake Total 2178.4 Output Total 200 Balance 1978.4 - Medications Medications: Current Medications Aspirin (Aspirin Supp) 300 mg RC DAILY [facility] Last Admin: 09/02/17 09:24 Dose: 300 mg Atorvastatin Calcium (Lipitor) 80 mg PO DIN [facility] Last Admin: 09/02/17 18:17 Dose: 80 mg Clopidogrel Bisulfate (Plavix) 75 mg PO DAILY [facility] Glimepiride (Amaryl) 4 mg PO ACBD [facility] Heparin Sodium/Sodium Chloride (Heparin 12013 Units/250ml 1/2 Normal Saline) 25 ,000 units in 250 mls @ 7.239 mls/hr IV .Q24H [facility]; 12 UNITS/KG/HR PRN Reason: Protocol Last Admin: 09/03/17 02:12 Dose: 7 units/kg/hr, 4.223 mls/hr Sodium Chloride (Sodium Chloride 0.45%) 1,000 mls @ 100 mls/hr IV .Q10H [facility] Insulin Detemir (Levemir) 30 unit SC HS [facility] Insulin Human Regular (Humulin R Low) 0 units SC ACHS [facility] PRN Reason: Protocol Last Admin: 09/03/17 08:54 Dose: 4 units Insulin Lispro Protam/Lispro Human (Humalog Mix 75/25) 10 units SC AC [facility] Last Admin: 09/03/17 08:55 Dose: 10 units Metoprolol Tartrate (Lopressor) 25 mg PO BID [facility] Last Admin: 09/02/17 18:17 Dose: 25 mg Pantoprazole Sodium (Protonix Ec Tab) 40 mg PO 0600 [facility] - Labs Labs: 09/03/17 05:30 09/03/17 05:30 PT 12.7 SECONDS (9.4-12.5) H 09/03/17 08:30 INR 1.10 (0.93-1.08) H 09/03/17 08:30 APTT 50.5 Seconds (25.1-36.5) H 09/03/17 08:30 Assessment and Plan - Assessment and Plan (Free Text) Plan: Patient seen and examined on rounds with resident, agree with note with following additions/exceptions: Patient is 82yo male with PMhx of DM, CHF, CAD a/w NSTEMI and DKA. Currently afebrile, HD stabl,e comfortable in NAD, AAOX2. Off insulin dirp, diet ordered, endocrine following. CXR clear, UA negative, cultures pending, ID eval pending. NSTEMI DKA, resolved DM CAD HTN AMS, resolved SIRS Recommend: - supp o2 as needed - follow up ID, follow up cultures, abx as per ID - IVF hydration - BP control - ASA, Statin, Lopressor, Heparin drip - follow up cardiology, no plans for cath - FS control, cont with Levemir, sliding scale - GI ppx - DVT ppx - Stable, transfer to tele
[2017-09-03] MEDS ORDERED: Insulin Reg-MEDIUM-Coverage SC SCH (11:30)
[2017-09-03 14:11] LABS: FOLATE 3.7 ng/mL
--- NOTE | 2017-09-03 14:19 | EEG ---
DATE: 09/03/2017 CONDITION OF THE RECORDING: Drowsy. DIAGNOSIS: Altered mental status. MEDICATIONS: Reviewed by nurse's reconciliation sheet. INTERPRETATION: This is a 16-channel [employer] recording. The background activity was composed of 8 cycles per second. There was small amount of beta activity of 16 to 20 cycles per second seen in this recording. There was small amount of theta activity of 5 to 7 cycles per second seen in this tracing. Drowsiness was characterized by mixed beta and theta activities. Sleep was characterized by vertex transients, sleep spindles, and bilateral slowing. Photic stimulation showed no change in the tracing. No paroxysmal activity is noted in this recording. CONCLUSION: This is a normal drowsy EEG. No evidence of any epileptiform activity. Please clinically correlate. Qamar Dunlap MD
--- NOTE | 2017-09-03 16:42 | PN ---
DATE: 09/03/2017 REFERRING PHYSICIAN: Rasheed Holland MD REASON FOR THE CONSULTATION AND FOLLOWUP: Cardiac evaluation, positive troponin, non-ST segment myocardial infarction, altered mental status, diabetic ketoacidosis, status post DKA. SUBJECTIVE: The patient is confused. Alert to the place and person, vaguely knows in the hospital, but not sure which hospital. OBJECTIVE: GENERAL: Not in any apparent distress, lying flat on the bed, having EEG now. VITAL SIGNS: Temperature afebrile, heart rate is 65, and blood pressure 113/65. HEENT: PERRLA. Extraocular muscles Intact. NECK: Supple. No carotid bruits. No thyromegaly. CHEST: Clear to auscultation. HEART: S1 and S2 regular. ABDOMEN: Soft. EXTREMITIES: Clubbing and cyanosis negative. LABORATORY DATA: Blood workup as follows: WBC 8.4, hemoglobin 9.9, hematocrit 30.1, and platelet count 203. Chemistry: Sodium 146, potassium 4.0, chloride 115, carbon dioxide 20, anion gap of 16. BUN 47 and creatinine 2. IMPRESSION: Acute kidney injury, positive troponin, rule out non-ST segment myocardial infarction versus secondary rhabdomyolysis because MB fraction is 1.3, very low, doubt is an myocardial infarction. Creatinine clearance is 30 mL/hour. History of fall. Patient was found on the floor. Altered mental status. Patient had the last stress test on 04/09/2017, that showed abnormal myocardial perfusion study, partially reversible anteroseptal defect suspicious for ischemia, dated 04/10/2017, ejection fraction was 43%. The elevated CPK with troponin negative. No evidence of myocardial infarction. Most likely, the rhabdomyolysis and renal insufficiency, that is why troponin positive borderline, which is trending down. RECOMMENDATIONS: Continue aspirin. Continue Plavix. Change heparin to Lovenox. Transfer to tele. If the mentation improves, consider cardiac catheterization. If the patient mentation remains the way it is, I will treat medically, asymptomatic. On admission, patient had CPK of 2000 and MB fraction was low, although troponin 1.39 most likely secondary to troponin leak from the rhabdomyolysis, also creatinine clearance is 30 mL. As mentioned, continue aspirin, we will change the aspirin to p.o. Discontinue heparin and change to Lovenox. Continue Plavix. As the blood pressure and heart rate is tolerated, we will put low dose of beta-robert. Avoid nephrotoxic medications. We will start p.o. aspirin. Discontinue rectal suppository aspirin. Discontinue heparin and put Lovenox. Echo to assess LV function. Thank you, Dr. Anderson for providing us the opportunity in taking care of patient, Abel Keller. Rasheed Holland MD
[2017-09-03] MEDS ORDERED: Dextrose 50% SYRINGE Inj (50 ml) ONE (16:47)
--- NOTE | 2017-09-03 16:55 | CP.PCM.PN ---
<Janel Seals - Last Filed: 09/03/17 16:51> Subjective - Date & Time of Evaluation Date of Evaluation: 09/03/17 Time of Evaluation: 09:00 - Subjective Subjective: Neurology PGY-[address] Dunlap Pt was in soft restraint for pulling pimentel. Pt is confused at times and can be re-directed. Objective - Vital Signs/Intake and Output Vital Signs (last 24 hours): Temp Pulse Resp BP Pulse Ox 98.8 F 72 17 120/86 99 09/03/17 08:00 09/03/17 15:00 09/03/17 15:00 09/03/17 15:00 09/03/17 15:00 Intake and Output: 09/03/17 09/03/17 06:59 18:59 Intake Total 2178.4 Output Total 200 Balance 1978.4 - Medications Medications: Current Medications Aspirin (Ecotrin) 81 mg PO DAILY [facility] Atorvastatin Calcium (Lipitor) 80 mg PO DIN [facility] Last Admin: 09/02/17 18:17 Dose: 80 mg Clopidogrel Bisulfate (Plavix) 75 mg PO DAILY [facility] Enoxaparin Sodium (Lovenox) 30 mg SC DAILY [facility] PRN Reason: Protocol Glimepiride (Amaryl) 4 mg PO ACBD [facility] Last Admin: 09/03/17 16:10 Dose: Not Given Insulin Detemir (Levemir) 30 unit SC HS [facility] Insulin Human Lispro (Humalog Low) 0 units SC ACHS [facility] PRN Reason: Protocol Insulin Human Lispro (Humalog) 14 units SC AC [facility] Metoprolol Tartrate (Lopressor) 25 mg PO BID [facility] Last Admin: 09/03/17 16:11 Dose: Not Given Pantoprazole Sodium (Protonix Ec Tab) 40 mg PO 0600 [facility] - Labs Labs: 09/03/17 05:30 09/03/17 05:30 PT 12.7 SECONDS (9.4-12.5) H 09/03/17 08:30 INR 1.10 (0.93-1.08) H 09/03/17 08:30 APTT 50.5 Seconds (25.1-36.5) H 09/03/17 08:30 - Constitutional Appears: Confused - Head Exam Head Exam: ATRAUMATIC, NORMAL INSPECTION, NORMOCEPHALIC - Eye Exam Eye Exam: EOMI, Normal appearance, PERRL. absent: Scleral icterus - ENT Exam ENT Exam: Mucous Membranes Moist - Neck Exam Additional comments: supple - Respiratory Exam Respiratory Exam: Clear to Ausculation Bilateral, NORMAL BREATHING PATTERN - Cardiovascular Exam Cardiovascular Exam: REGULAR RHYTHM, +S1, +S2 - Extremities Exam Extremities Exam: absent: Pedal Edema - Neurological Exam Additional comments: Awake and oriented to self and place CN 2-12 intact. No facial asymmetry. Tongue midline Move all extremities Sensory appear intact DTR 1+ plantar downgoing Assessment and Plan - Assessment and Plan (Free Text) Plan: Mr Abel Keller, 82 AAM, with PMH demetia on donepazil, CAD, HTN, diabetes, was found confused on the floor by daughter. CT scan showed no bleed, with mild- moderate brain atrophy. 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 Blood pressure was at 90s/50s on admission. Blood glucose was at 500s with lactic acidosis and high anion gap metabolic acidosis. His trops were elevated suggestive of NSTEMI currently on heparin gtt. AMS likely due to (1) transient cerebral hypoperfusion from transient hypotension, (2) uncontrolled diabetes, a1c 12, and (3) toxic metabolic encephalopahty effect from JANET, hyperglycemia, DKA, high anion gap metabolic acidosis, and rhabdomyolisis from a fall in the setting of (4) dementia - EEG: normal - maintain SBP 120-130. Avoid sudden drop of BP - goal blood glucose 140-180 - monitor electrolytes closely and correct accordingly - Avoid sedative - delirium precaution with day time activity and day time reorientation - restart donepezil 10 AM Hx CVA (+) chronic lacunar infarct and L nasal ganglia. - continue ASA 81 and lipitor 80 - On plavix and heparin gtt for possible NSTEMI s/r/d/w Dr. Dunlap <Qamar Dunlap - Last Filed: 09/04/17 10:32> Objective - Vital Signs/Intake and Output Vital Signs (last 24 hours): Temp Pulse Resp BP Pulse Ox 97.7 F 95 H 13 139/57 L 98 09/04/17 05:24 09/04/17 09:33 09/04/17 05:13 09/04/17 09:33 09/04/17 05:13 Intake and Output: 02/06/18 02/06/18 06:59 18:59 Intake Total 450 Balance 450 - Medications Medications: Current Medications Acetylcysteine (Acetylcysteine 20%) 6 ml PO BID [facility] Stop: 09/07/17 23:59 Aspirin (Ecotrin) 81 mg PO DAILY [facility] Last Admin: 09/04/17 09:34 Dose: 81 mg Atorvastatin Calcium (Lipitor) 80 mg PO DIN [facility] Last Admin: 09/03/17 17:42 Dose: 80 mg Carvedilol (Coreg) 3.125 mg PO BID [facility] Last Admin: 09/04/17 09:33 Dose: 3.125 mg Clopidogrel Bisulfate (Plavix) 75 mg PO DAILY [facility] Last Admin: 09/04/17 09:33 Dose: 75 mg Donepezil HCl (Aricept) 10 mg PO DAILY [facility] Last Admin: 09/04/17 09:33 Dose: 10 mg Enoxaparin Sodium (Lovenox) 30 mg SC DAILY [facility] PRN Reason: Protocol Stop: 09/05/17 23:59 Last Admin: 09/04/17 09:33 Dose: 30 mg Glimepiride (Amaryl) 4 mg PO ACBD [facility] Last Admin: 09/04/17 08:15 Dose: 4 mg Sodium Chloride (Sodium Chloride 0.9%) 1,000 mls @ 50 mls/hr IV .Q20H [facility] Insulin Detemir (Levemir) 30 unit SC HS [facility] Last Admin: 09/03/17 21:03 Dose: Not Given Insulin Human Lispro (Humalog) 14 units SC AC [facility] Last Admin: 09/04/17 08:15 Dose: 14 units Insulin Human Regular (Humulin R Med) 0 units SC ACHS [facility] PRN Reason: Protocol Last Admin: 09/04/17 09:34 Dose: Not Given Pantoprazole Sodium (Protonix Ec Tab) 40 mg PO 0600 [facility] Last Admin: 09/04/17 05:22 Dose: 40 mg Thiamine HCl (Vitamin B1 Tab) 100 mg PO DAILY [facility] - Labs Labs: 09/03/17 05:30 09/03/17 05:30 PT 12.7 SECONDS (9.4-12.5) H 09/03/17 08:30 INR 1.10 (0.93-1.08) H 09/03/17 08:30 APTT 50.5 Seconds (25.1-36.5) H 09/03/17 08:30 Attending/Attestation - Attestation I have personally seen and examined this patient.: Yes I have fully participated in the care of the patient.: Yes I have reviewed all pertinent clinical information, including history, physical exam and plan: Yes
--- NOTE | 2017-09-03 16:56 | CARD ---
APPROVED REPORT EXAM: Two-dimensional and M-mode echocardiogram with Doppler and color Doppler. INDICATION Chest Pain Non STEMI LVFX 2D DIMENSIONS Left Atrium (2D)5.0 (1.6-4.0cm)IVSd1.1 (0.7-1.1cm) LVDd6.0 (3.9-5.9cm)PWd1.2 (0.7-1.1cm) LVDs5.4 (2.5-4.0cm)FS (%) 9.9 % LVEF (%)20.9 (>50%) M-Mode DIMENSIONS Aortic Root3.70 (2.2-3.7cm)Aortic Cusp Exc.1.60 (1.5-2.0cm) Aortic Valve AoV Peak Iwvnnsfw135.0cm/Alfred Peak GR.7mmHg Mitral Valve MV E Xatrzloq76.5cm/sMV A Kgwsbuoo10.9cm/sE/A ratio0.9 TDI Lateral E' Peak V5.36cm/sMedial E' Peak V5.65cm/sE/Lateral E'13.9 E/Medial E'13.2 Pulmonary Valve PV Peak Ffdyfavd58.6cm/sPV Peak Grad.0mmHg Tricuspid Valve TR Peak Pjylkbzu919ug/sRAP VPQGYLED92gzIsLF Peak Gr.32mmHg [id number] LEFT VENTRICLE The Left Ventricle is borderline dilated. There is borderline to mild concentric left ventricular hypertrophy. The systolic function is severely impaired.EF-20-25% There is There is moderate to severe hypokinesis in the apical anterior wall.moderate global hypokinesis of the left ventricle. Transmitral Doppler flow pattern is Grade III-reversible restrictive diastolic dysfunction. No left ventricle thrombus noted on this study. There is no ventricular septal defect visualized. There is no left ventricular aneurysm. There is no mass noted in the left ventricle. RIGHT VENTRICLE The right ventricle is mildly dilated. There is normal right ventricular wall thickness. Systolic function is mildly reduced. ATRIA The left atrium is mildly dilated. The right atrium is mildly dilated. The interatrial septum is intact with no evidence for an atrial septal defect. AORTIC VALVE The aortic valve is calcified and displays decreased opening. Trivial AR There is mild to moderate valvular aortic stenosis. There is no aortic valvular vegetation. MITRAL VALVE The mitral valve is thickened but opens well. Mitral annular calcification is moderate. Mitral regurgitation is mild to moderate. There is no mitral valve stenosis. There is no evidence of mitral valve prolapse. TRICUSPID VALVE The tricuspid valve leaflets are thickened , but open well. There is mild to moderate tricuspid regurgitation.RVSP-42 mmof hg. There is no tricuspid valve stenosis. There is no tricuspid valve prolapse or vegetation. PULMONIC VALVE The pulmonic valve is mildly thickened. There is trace pulmonic valvular regurgitation. There is no pulmonic valvular stenosis. GREAT VESSELS The aortic root is normal in size. The ascending aorta is normal in size. The pulmonary artery is normal. The IVC is dilated. PERICARDIAL EFFUSION There is no pleural effusion. There is no pericardial effusion. <Conclusion> Four chamber dilatation C/W CMP.EF-2025% Trivial AR There is mild to moderate valvular aortic stenosis. Mitral regurgitation is mild to moderate. There is mild to moderate tricuspid regurgitation.RVSP-42 mmof hg. The IVC is dilated. There is no pericardial effusion. No Vegetation noted.
[2017-09-03] MEDS: Insulin Lispro (humaLOG) LOW Coverage SC SCH ×2 (17:28→21:03)
[2017-09-03] MEDS: Insulin Lispro 1 UNITS/0.01 ML SC SCH (17:28)
[2017-09-03] MEDS: Pantoprazole 40 mg EC Tab PO SCH (17:50)
--- NOTE | 2017-09-03 18:07 | CARD ---
APPROVED REPORT EKG Measurement Heart [id number] TX [id number] <Conclusion> Normal sinus rhythm Left axis deviation ST & T wave abnormality, consider inferior ischemia Abnormal ECG
--- NOTE | 2017-09-03 18:08 | CARD ---
APPROVED REPORT EKG Measurement Heart [id number] SD [id number] <Conclusion> Normal sinus rhythm Left axis deviation Anteroseptal infarct, age undetermined T wave abnormality, consider inferior ischemia Abnormal ECG
[2017-09-03] MEDS: Insulin Detemir 100 units/ml Vial (Levemir) SC SCH (21:03)
--- NOTE | 2017-09-04 05:02 | PN ---
DATE: SUBJECTIVE: The patient is an 82-year-old male. The patient is seen and examined at the bedside. Still in the unit, looking comfortable. Has a soft restraint for pulling Foleys. Patient is confused and can be redirected. No fever. No chills. No nausea, vomiting or diarrhea. No hematuria or hematochezia. No headache. No dizziness. Patient is a poor historian. PHYSICAL EXAMINATION: VITAL SIGNS: Temperature 98.8, pulse 72, respiratory rate is 17, blood pressure 120/86, pulse oximetry of 99. HEENT: Head: Normocephalic, atraumatic. Eyes: PERRLA. Extraocular movements are intact. Conjunctivae clear. Nose patent. Mucous membranes are moist. NECK: Supple. No carotid bruit, JVD, or thyromegaly. CHEST: Bilaterally symmetrical. HEART: S1 and S2 positive. LUNGS: Clear to auscultation. ABDOMEN: Soft. Bowel sounds are present. No organomegaly. EXTREMITIES: No edema. No cyanosis. NEUROLOGIC: The patient is awake and alert, but confused. MEDICATIONS: Ecotrin, Lipitor, Plavix, Lovenox, Amaryl, Levemir, Humalog, Lopressor, Protonix. LABORATORY DATA: White blood cells 8.4, hemoglobin 9.9, hematocrit 30.1, platelets 203. Sodium 146, potassium 4.7, BUN 47, creatinine 2.0, and glucose 347. ASSESSMENT AND PLAN: Mr. Abel Keller is an 82-year-old male with anemia, renal insufficiency, hyperchloremia, hyperglycemia, who came with altered mental status, history of dementia - on donepezil, coronary artery disease, hypertension. CT of the head is done, no bleed, positive chronic lacunar infarct and left basal ganglia. Altered mental status can be likely due to transient cerebral hypoperfusion from transient hypotension, uncontrolled diabetes mellitus, A1c is 12, toxic metabolic encephalopathy affected from JANET, hyperglycemia, diabetic ketoacidosis with anion gap metabolic acidosis and rhabdomyolysis form all the setting for dementia. EEG is normal, maintainable systolic blood pressure between 120 and 130 , of blood pressure. Goal of blood sugar is [address] Dunlap's input. Seen by Dr. Holland, Dr. Quintero. Gastrointestinal and deep vein thrombosis prophylaxis. Repeat labs. We will follow up. Gricelda Anderson MD Ramon # [id number] LANI
[2017-09-04] MEDS: Pantoprazole 40 mg EC Tab PO SCH (05:22)
--- NOTE | 2017-09-04 06:08 | CON ---
DATE: 09/03/2017 REFERRING PHYSICIAN: Dr. Anderson REASON FOR CONSULTATION: Cardiomyopathy, may have sleep apnea syndrome, pulmonary hypertension. HISTORY OF PRESENT ILLNESS: This is an 82-year-old gentleman with a past medical history significant for diabetes, coronary artery disease, congestive heart failure, and hypertension. 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 Seen by Cardiology. Echocardiogram was done which showed severe cardiomyopathy with a high PA pressure. Admits to have snoring, daytime sleepy, and tired. No hemoptysis or emesis. No hematuria. No diarrhea reported. PAST MEDICAL HISTORY: As per history present illness. ALLERGIES: PENICILLIN. SOCIAL HISTORY: Nonsmoker, stopped smoking many years ago. Denied any alcohol use. FAMILY HISTORY: No significant cardiopulmonary disease reported. MEDICATIONS: He is on Amaryl 4 mg before meals b.i.d., Aricept 10 mg daily, Ecotrin 81 mg daily, insulin coverage, Levemir 30 units subcu at bedtime, Lipitor 80 mg daily, metoprolol tartrate 25 mg twice a day, Lovenox 30 mg daily, Plavix 75 g daily, Protonix 40 mg daily. REVIEW OF SYSTEMS: Denies any headache or rhinitis. Follows simple commands but confused. No nausea, no vomiting, no diarrhea, leg pain or leg swelling. PHYSICAL EXAMINATION: Lying in the bed. Has a restraint in upper extremity. VITAL SIGNS: Temperature is 98, heart rate 72, respiratory rate is 20, blood pressure 120/86, pulse of 99% nasal cannula. HEENT: Moist mucous membrane. Crowded airway. NECK: Supple. No JVD. LUNGS: Have fair airflow with rhonchi. HEART: S1, S2. ABDOMEN: Soft, nontender, no organomegaly. EXTREMITIES: There is no edema. NEUROLOGICALLY: Awake, alert and follows simple commands. LABORATORY DATA: Shows hemoglobin 9.9, hematocrit 30.1, WBC 8.4, platelet is 203,000. PTT is 50. VBG showed pH 7.31, pCO2 is 44, O2 41 - this is on room air. Sodium 146, potassium 4.7, chloride 115, bicarbonate 20, BUN 47, creatinine 2.0, glucose 347, calcium is at 9.3, phosphorus 3.0, magnesium 2.1, AST 162, ALT 37, alk phos is 133. LDH is 1054. Troponin 0.93. Cholesterol is 211. Vitamin B12 is more than 1000. Folate is 3.7. Microbiology: Blood culture, urine culture, nasal culture, there is no growth. Had echocardiogram done today, which shows right ventricle systolic pressure is 42, LV ejection fraction is at 22 to 25. Chest x-ray done on admission so shows no infiltrate or effusion. IMPRESSION AND PLAN: Admitted with diabetic ketoacidosis, found to have cardiomyopathy, pulmonary hypertension, hypertension, also seems like very forgetful or may have an element of dementia. Continue Endocrinology, Cardiology followup. Pulmonary point of view, I will keep head elevated at 45 degrees; will suggest placing him on continuous positive airway pressure at 8 cm with 35% oxygen while sleeping. Start physical therapy, out of bed to chair. Once stable, as an outpatient, will need sleep study. Thank you and we will follow with you. Rasheed Little MD
[2017-09-04 08:01] LABS: TROPONIN I 0.4 ng/mL
[2017-09-04] MEDS: Insulin Lispro (humaLOG) LOW Coverage SC SCH (08:14)
[2017-09-04] MEDS: Insulin Lispro 1 UNITS/0.01 ML SC SCH ×3 (08:15→16:50)
[2017-09-04 08:39] LABS: CK MB% 0.9 % (2.5-3.0); CK-MB 9.5 ng/mL (0.0-3.6)
--- NOTE | 2017-09-04 08:40 | PN ---
DATE: 09/03/2017 LOCATION: In CCU 129, room 1. SUBJECTIVE: This is an 82-year-old male with recent uncontrolled type 2 insulin-requiring diabetes, presenting here with diabetic ketoacidosis and dehydration and is now being followed closely for metabolic management. His oral intake remains quite variable not really improved metabolically baseline even prior to admission otherwise. The latest chemistries showed a BUN of 47, sodium 146, potassium 4.7, chloride , CO2 of 20, glucose 347 and creatinine 2.0. His hemoglobin A1c is 12.1%, which is quite elevated and indicative of suboptimal metabolic control of his diabetic condition So at time, we will initiate a more physiologic basal and bolus insulin drug combination with Levemir to be given 30 units subcutaneously at bedtime daily . We will also add Humalog given as units subcutaneously t.i.d. before meals as ordered. We will titrate in order to optimize metabolic control. We will modify the coverage scale to a low-dose algorithm using Humulin insulin as given . His IV fluids have been discontinued because of . We will obtain serial chemistries and supplement accordingly as needed. We will follow with you. Raine Friedman MD
[2017-09-04] MEDS: Enoxaparin 30 mg Syringe SC SCH (09:33)
[2017-09-04] MEDS: Insulin Reg-MEDIUM-Coverage SC SCH ×4 (09:34→22:55)
--- NOTE | 2017-09-04 10:13 | CP.PCM.PN ---
Subjective - Date & Time of Evaluation Date of Evaluation: 09/04/17 Time of Evaluation: 09:50 - Subjective Subjective: Comfortable in bed, no chest pain or SOB currently, no fevers overnight, no nausea, no diarrhea. Objective - Vital Signs/Intake and Output Vital Signs (last 24 hours): Temp Pulse Resp BP Pulse Ox 97.7 F 66 13 134/76 98 09/04/17 05:24 09/04/17 05:13 09/04/17 05:13 09/04/17 05:13 09/04/17 05:13 Intake and Output: 09/03/17 09/04/17 18:59 06:59 Intake Total 1020 450 Output Total 500 Balance 520 450 - Medications Medications: Current Medications Aspirin (Ecotrin) 81 mg PO DAILY [facility] Atorvastatin Calcium (Lipitor) 80 mg PO DIN [facility] Last Admin: 09/03/17 17:42 Dose: 80 mg Clopidogrel Bisulfate (Plavix) 75 mg PO DAILY [facility] Last Admin: 09/03/17 17:41 Dose: 75 mg Donepezil HCl (Aricept) 10 mg PO DAILY [facility] Enoxaparin Sodium (Lovenox) 30 mg SC DAILY [facility] PRN Reason: Protocol Glimepiride (Amaryl) 4 mg PO ACBD [facility] Last Admin: 09/03/17 17:27 Dose: Not Given Insulin Detemir (Levemir) 30 unit SC HS [facility] Last Admin: 09/03/17 21:03 Dose: Not Given Insulin Human Lispro (Humalog Low) 0 units SC ACHS [facility] PRN Reason: Protocol Last Admin: 09/03/17 21:03 Dose: Not Given Insulin Human Lispro (Humalog) 14 units SC AC [facility] Last Admin: 09/03/17 17:28 Dose: Not Given Metoprolol Tartrate (Lopressor) 25 mg PO BID [facility] Last Admin: 09/03/17 17:41 Dose: 25 mg Pantoprazole Sodium (Protonix Ec Tab) 40 mg PO 0600 [facility] Last Admin: 09/04/17 05:22 Dose: 40 mg - Labs Labs: 09/03/17 05:30 09/03/17 05:30 PT 12.7 SECONDS (9.4-12.5) H 09/03/17 08:30 INR 1.10 (0.93-1.08) H 09/03/17 08:30 APTT 50.5 Seconds (25.1-36.5) H 09/03/17 08:30 - Constitutional Appears: Non-toxic, Chronically Ill - Head Exam Head Exam: NORMAL INSPECTION - Respiratory Exam Respiratory Exam: Decreased Breath Sounds - Cardiovascular Exam Cardiovascular Exam: +S1, +S2 - GI/Abdominal Exam GI & Abdominal Exam: Soft. absent: Tenderness Assessment and Plan - Assessment and Plan (Free Text) Plan: Assessment S/P systemic inflammatory response syndrome, consider due to acute rhabdomyolysis after a fall, with possible acute myocardial infarction and acute toxic-metabolic encephalopathy; so far no source of infection identified HTN DM CAD arthritis Plan Will continue to monitor the patient off antibiotics; although PCT is elevated, this may be increase in patients with IA; also, CXR does not show pneumonia, patient does not have fever, WBC count has normalized, urinalysis does not show pyuria, blood and urine cx are negative
--- NOTE | 2017-09-04 10:17 | CP.PCM.PN ---
<Janel Seals - Last Filed: 09/04/17 10:19> Subjective - Date & Time of Evaluation Date of Evaluation: 09/04/17 Time of Evaluation: 09:00 - Subjective Subjective: Neurology PGY-[address] Dunlap Pt is off restraint today. Pt sits in bed eating breakfast, able to self-feed. Per RN, Still has periodic confusion at nights, easily to be redirected. Objective - Vital Signs/Intake and Output Vital Signs (last 24 hours): Temp Pulse Resp BP Pulse Ox 97.7 F 95 H 13 139/57 L 98 09/04/17 05:24 09/04/17 09:33 09/04/17 05:13 09/04/17 09:33 09/04/17 05:13 Intake and Output: 09/04/17 09/04/17 06:59 18:59 Intake Total 450 Balance 450 - Medications Medications: Current Medications Acetylcysteine (Acetylcysteine 20%) 6 ml PO BID [facility] Stop: 09/07/17 23:59 Aspirin (Ecotrin) 81 mg PO DAILY [facility] Last Admin: 09/04/17 09:34 Dose: 81 mg Atorvastatin Calcium (Lipitor) 80 mg PO DIN [facility] Last Admin: 09/03/17 17:42 Dose: 80 mg Carvedilol (Coreg) 3.125 mg PO BID [facility] Last Admin: 09/04/17 09:33 Dose: 3.125 mg Clopidogrel Bisulfate (Plavix) 75 mg PO DAILY [facility] Last Admin: 09/04/17 09:33 Dose: 75 mg Donepezil HCl (Aricept) 10 mg PO DAILY [facility] [place] Last Admin: 09/04/17 09:33 Dose: 10 mg Enoxaparin Sodium (Lovenox) 30 mg SC DAILY [facility] PRN Reason: Protocol Stop: 09/05/17 23:59 Last Admin: 09/04/17 09:33 Dose: 30 mg Glimepiride (Amaryl) 4 mg PO ACBD [facility] Last Admin: 09/04/17 08:15 Dose: 4 mg Sodium Chloride (Sodium Chloride 0.9%) 1,000 mls @ 50 mls/hr IV .Q20H [facility] Insulin Detemir (Levemir) 30 unit SC HS [facility] Last Admin: 09/03/17 21:03 Dose: Not Given Insulin Human Lispro (Humalog) 14 units SC AC [facility] Last Admin: 09/04/17 08:15 Dose: 14 units Insulin Human Regular (Humulin R Med) 0 units SC ACHS [facility] PRN Reason: Protocol Last Admin: 09/04/17 09:34 Dose: Not Given Pantoprazole Sodium (Protonix Ec Tab) 40 mg PO 0600 [facility] Last Admin: 09/04/17 05:22 Dose: 40 mg - Labs Labs: 09/03/17 05:30 09/03/17 05:30 PT 12.7 SECONDS (9.4-12.5) H 09/03/17 08:30 INR 1.10 (0.93-1.08) H 09/03/17 08:30 APTT 50.5 Seconds (25.1-36.5) H 09/03/17 08:30 - Constitutional Appears: No Acute Distress - Head Exam Head Exam: ATRAUMATIC, NORMAL INSPECTION, NORMOCEPHALIC - Eye Exam Eye Exam: EOMI, Normal appearance, PERRL. absent: Scleral icterus Pupil Exam: NORMAL ACCOMODATION - ENT Exam ENT Exam: Mucous Membranes Moist - Neck Exam Additional comments: supple - Respiratory Exam Respiratory Exam: Clear to Ausculation Bilateral, Rhonchi, NORMAL BREATHING PATTERN - Cardiovascular Exam Cardiovascular Exam: REGULAR RHYTHM, +S1, +S2 - GI/Abdominal Exam GI & Abdominal Exam: Soft, Normal Bowel Sounds. absent: Rigid, Tenderness - Neurological Exam Neurological Exam: Alert, Awake, CN II-XII Intact Additional comments: Awake and oriented to self and place CN 2-12 intact. No facial asymmetry. Tongue midline Move all extremities, resting tremor UEs Sensory intact DTR 1+ finger to nose coordination: slightly overshoot plantar downgoing - Psychiatric Exam Psychiatric exam: Normal Affect, Normal Mood - Skin Skin Exam: Dry, Warm Assessment and Plan - Assessment and Plan (Free Text) Plan: Mr Abel Keller, 82 AAM, with PMH demetia on donepazil, CAD, HTN, diabetes, was found confused on the floor by daughter. CT scan showed no bleed, with mild- moderate brain atrophy. 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 Blood pressure was at 90s/50s on admission. Blood glucose was at 500s with lactic acidosis and high anion gap metabolic acidosis. His trops were elevated suggestive of NSTEMI currently OFF heparin gtt. AMS likely due to (1) transient cerebral hypoperfusion from transient hypotension, (2) uncontrolled diabetes, a1c 12, and (3) toxic metabolic encephalopahty effect from JANET, hyperglycemia, DKA, high anion gap metabolic acidosis, and rhabdomyolisis from a fall in the setting of (4) dementia - EEG: normal - maintain SBP 120-130. 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 - continue ASA 81 and lipitor 80 - On plavix for possible NSTEMI - ? cath s/r/d/w Dr. Dunlap <Qamar Dunlap - Last Filed: 09/04/17 10:36> Objective - Vital Signs/Intake and Output Vital Signs (last 24 hours): Temp Pulse Resp BP Pulse Ox 97.7 F 95 H 13 139/57 L 98 09/04/17 05:24 09/04/17 09:33 09/04/17 05:13 09/04/17 09:33 09/04/17 05:13 Intake and Output: 09/04/17 09/04/17 06:59 18:59 Intake Total 450 Balance 450 - Medications Medications: Current Medications Acetylcysteine (Acetylcysteine 20%) 6 ml PO BID [facility] Stop: 09/07/17 23:59 Aspirin (Ecotrin) 81 mg PO DAILY [facility] Last Admin: 09/04/17 09:34 Dose: 81 mg Atorvastatin Calcium (Lipitor) 80 mg PO DIN [facility] Last Admin: 09/03/17 17:42 Dose: 80 mg Carvedilol (Coreg) 3.125 mg PO BID [facility] [place] Last Admin: 09/04/17 09:33 Dose: 3.125 mg Clopidogrel Bisulfate (Plavix) 75 mg PO DAILY [facility] Last Admin: 09/04/17 09:33 Dose: 75 mg Donepezil HCl (Aricept) 10 mg PO DAILY [facility] Last Admin: 09/04/17 09:33 Dose: 10 mg Enoxaparin Sodium (Lovenox) 30 mg SC DAILY [facility] PRN Reason: Protocol Stop: 09/05/17 23:59 Last Admin: 09/04/17 09:33 Dose: 30 mg Glimepiride (Amaryl) 4 mg PO ACBD [facility] Last Admin: 09/04/17 08:15 Dose: 4 mg Sodium Chloride (Sodium Chloride 0.9%) 1,000 mls @ 50 mls/hr IV .Q20H [facility] Insulin Detemir (Levemir) 30 unit SC HS [facility] Last Admin: 09/03/17 21:03 Dose: Not Given Insulin Human Lispro (Humalog) 14 units SC AC [facility] Last Admin: 09/04/17 08:15 Dose: 14 units Insulin Human Regular (Humulin R Med) 0 units SC ACHS [facility] PRN Reason: Protocol Last Admin: 09/04/17 09:34 Dose: Not Given Pantoprazole Sodium (Protonix Ec Tab) 40 mg PO 0600 [facility] Last Admin: 09/04/17 05:22 Dose: 40 mg Thiamine HCl (Vitamin B1 Tab) 100 mg PO DAILY [facility] - Labs Labs: 09/03/17 05:30 09/03/17 05:30 PT 12.7 SECONDS (9.4-12.5) H 09/03/17 08:30 INR 1.10 (0.93-1.08) H 09/03/17 08:30 APTT 50.5 Seconds (25.1-36.5) H 09/03/17 08:30 Attending/Attestation - Attestation I have personally seen and examined this patient.: Yes I have fully participated in the care of the patient.: Yes I have reviewed all pertinent clinical information, including history, physical exam and plan: Yes
--- NOTE | 2017-09-04 11:49 | PN ---
DATE: 09/04/2017 REASON FOR THE CONSULTATION AND FOLLOWUP: Cardiac evaluation, positive troponin, non-ST segment myocardial infarction, status post DKA, status post altered mental status, now mentally clear. SUBJECTIVE: The patient is much awake and alert, oriented to time, place and person. Denies any chest pain, shortness of breath, any palpitation. OBJECTIVE: GENERAL: Not in any apparent distress. VITAL SIGNS: Temperature afebrile, heart rate 66, blood pressure 134/76. HEENT: PERRLA. Extraocular muscles intact. NECK: Supple. No carotid bruit. No thyromegaly. CHEST: Clear to auscultation. HEART: S1 and S2 regular. ABDOMEN: Soft. EXTREMITIES: Clubbing and cyanosis negative. LABORATORY DATA: Blood workup as follows. WBC 8.4, hemoglobin 9.9, hematocrit 30.1, platelet count 203. Chemistry shows sodium 146, potassium 4.7, chloride 115, carbon dioxide 20, anion gap of 16, BUN 46, creatinine 2.0. Total CPK 1059, troponin 0.4. IMPRESSION: Status post diabetic ketoacidosis, status post rhabdomyolysis, acute kidney injury, [id number] myocardial infarction versus leak of troponin secondary to rhabdomyolysis because MB fraction was 0.9, so doubt it is an myocardial infarction. History of recent stress test is abnormal, altered mental status secondary to metabolic encephalopathy, history of fall causes rhabdomyolysis. Most recently, stress test report on 04/10/2017, ejection 43%, abnormal, suspicious for ischemia. Elevated CPK, troponin positive, but MB fraction is negative most likely due to secondary to rhabdomyolysis. RECOMMENDATION: Continue aspirin, continue Plavix, continue Lovenox. The way the mentation is improved significantly and renal function improved, so we will consider cardiac catheterization on . Discussed with the patient, we will continue gentle hydration. The patient had echocardiography done yesterday that revealed ejection fraction 20-25%, mild to moderate valvular aortic stenosis, qywh-[id number] mitral regurgitation, [id number] tricuspid regurgitation, RV systolic pressure 25 mmHg. Continue low-dose enoxaparin. Continue Plavix. Continue aspirin. Continue atorvastatin. We will change to Coreg because of the decreased LV function and cardiac catheterization on , if the renal function improves and mentation improves. We will keep n.p.o. after 12:00 midnight and tomorrow start some hydration. Also, we will start some Mucomyst tomorrow. We will hold Lovenox for tomorrow's dose. The patient is not SOLOMON because of renal insufficiency. We will hold SOLOMON and avoid nephrotoxic medications. Okay to transfer to telemetry. Thank you, Dr. Anderson for providing us the opportunity in taking care of Abel Keller. Rasheed Holland MD
--- NOTE | 2017-09-04 21:51 | PN ---
DATE: ENDOCRINOLOGY FOLLOWUP NOTE LOCATION: CCU 129, room 1. SUBJECTIVE: This is an 82-year-old male with recent uncontrolled type 2 insulin-requiring diabetes, now being followed closely for metabolic management. Overnight hyperglycemic accelerations are supervened with glucose levels ranging from 301, 418, and 428 mg/dL. His hemoglobin A1c is 12.1%, still elevated, and indicative of suboptimal metabolic control with diabetic condition. His bedtime glucose was 149 and the possibility of the nursing staff holding the bedtime insulin also appears a factor at this time and this has to be verified, otherwise. So, for now, we will continue the same basal and bolus insulin regimen to allow for dose equilibration and keep him on the Humalog given as 14 units subcu t.i.d. before meals as ordered. We will also continue the Levemir given as 30 units subcu at bedtime daily as given. We will titrate incrementally as indicated to optimize metabolic control. He is also on Amaryl given as 4 mg b.i.d. before meals as ordered. We will obtain serial chemistries and supplement accordingly as needed. We will follow this. Raine Friedman MD
[2017-09-04] MEDS: Insulin Detemir 100 units/ml Vial (Levemir) SC SCH (22:56)
--- NOTE | 2017-09-05 02:23 | PN ---
DATE: PULMONARY PROGRESS NOTE REFERRING PHYSICIAN: Gricelda Anderson MD SUBJECTIVE: He is lying in the bed, head at 45 degrees. Night was unremarkable. No nausea. No vomiting. No diarrhea. No leg pain or leg swelling. OBJECTIVE: GENERAL: In no acute distress. VITAL SIGNS: Temperature 98, heart rate 78, respiratory rate is 20, blood pressure 115/65, pulse ox 98% on room air. HEENT: Moist mucous membrane. Crowded airway. NECK: Supple. No JVD. LUNGS: Has a fair airflow with few rhonchi. HEART: S1 and S2. ABDOMEN: Soft, nontender. No organomegaly. EXTREMITIES: There is no edema. NEUROLOGICAL: Awake, alert, and follows simple commands. MEDICATIONS: He is on Mucomyst 20% 6 mL inhaled twice a day, glimepiride 4 mg , Aricept 10 mg daily, Coreg 3.125 mg twice a day, Ecotrin 81 mg daily, insulin coverage Levemir 30 units subcu at bedtime, Lipitor 80 mg daily, Lovenox 30 mg daily, Plavix 75 mg daily, Protonix 40 mg daily, IV fluid normal saline 50 mL per hour, vitamin B 100 mg daily. LABORATORY DATA: Blood sugar this morning 301, LDH 942. Troponin was 0.40. IMPRESSION AND PLAN: Status post diabetic ketoacidosis secondary to noncompliance, cardiomyopathy, pulmonary hypertension, hypertension. Pulmonary point of view, doing okay. Keep head at 45 degrees. Avoid sedation. Encourage BiPAP use. Neurology and Cardiology followup. Followup labs in the morning. Out of bed to chair, start physical therapy. Thank you and we will follow with you. Rasheed Little MD
[2017-09-05] MEDS ORDERED: Insulin Regular 1 UNITS/0.01 ML ML SC STA (02:30)
[2017-09-05] MEDS: Pantoprazole 40 mg Susp UD PO SCH (05:00)
[2017-09-05 06:51] LABS: BASO # 0.01 K/mm3 (0.0-2.0); BASO % 0.2 % (0.0-3.0); EOS # 0.1 (0.0-0.7); EOS % 1.9 % (1.5-5.0); GRAN # 3.16 (1.4-6.5); GRAN % 58.9 % (50.0-68.0); HEMOGLOBIN 8.8 g/dL (14.0-18.0); LYMPH # 1.7 (1.2-3.4); LYMPH % 31.2 % (22.0-35.0); MEAN CELL VOLUME 83.4 fl (80.0-105.0); MEAN CORPUSCULAR HEMOGLOBIN 27.6 pg (25.0-35.0); MEAN CORPUSCULAR HGB CONC 33.1 g/dl (31.0-37.0); MEAN PLATELET VOLUME 9.8 fl (7.0-11.0); MONO # 0.4 (0.1-0.6); MONO % 7.8 % (1.0-6.0); RBC 3.19 10^6/uL (3.5-6.1); RED CELL DISTRIBUTION WIDTH 15.9 % (11.5-14.5); WHITE BLOOD COUNT 5.4 10^3/ul (4.5-11.0)
[2017-09-05 08:17] LABS: BLOOD UREA NITROGEN 41 mg/dL (7-21); CALCIUM 8.9 mg/dL (8.4-10.5); GFR AFRICAN-AMERICAN > 60; GFR NON-AFRICAN AMERICAN 53; TROPONIN I 0.26 ng/mL
[2017-09-05] MEDS: Insulin Lispro 1 UNITS/0.01 ML SC SCH ×3 (08:20→17:46)
[2017-09-05] MEDS: Insulin Reg-MEDIUM-Coverage SC SCH ×4 (08:21→22:52)
--- NOTE | 2017-09-05 09:06 | PN ---
DATE: 09/04/2017 SUBJECTIVE: Patient is an 82-year-old male. Patient was seen and examined at the bedside in the unit and looking comfortable. No nausea, vomiting, diarrhea. No hematuria, hematochezia. No swelling of the leg. No chest pain. No palpitation. No headache. No dizziness. Looking comfortable. No fever. No chills. PHYSICAL EXAMINATION VITAL SIGNS: Temperature 97.7, pulse 66, respiratory rate 13, blood pressure 134/76, pulse oximetry 98. HEENT: Head normocephalic, atraumatic. Eyes PERRLA. Extraocular muscles are intact. Conjunctivae clear. Nose patent. Mucous membranes are moist. NECK: Supple. No carotid bruit, JVD, or thyromegaly. CHEST: Bilaterally symmetrical. HEART: S1 and S2 positive. LUNGS: Clear to auscultation. ABDOMEN: Soft. Bowel sounds present. No organomegaly. EXTREMITIES: No edema. No cyanosis. NEUROLOGICAL: Patient is awake and alert. Moving all four extremities. No focal deficit. MEDICATIONS: Aspirin, atorvastatin, Plavix, Aricept, Lovenox, Amaryl, Levemir, lispro, Lopressor, Protonix. LABORATORY DATA: White blood cells 8.4, hemoglobin 9.9, hematocrit 30.1, platelets 203. Sodium 140, potassium 4.7, BUN 47, creatinine 2.0, glucose 347. ASSESSMENT AND PLAN: Mr. Abel Mac is an 82-year-old male with multiple medical problems, anemia, renal insufficiency, hyperglycemia, hyperchloremia, systemic inflammatory response syndrome, acute rhabdomyolysis after a fall with possible acute myocardial infarction and acute toxic metabolic encephalopathy, hypertension, diabetes mellitus, coronary artery disease, arthritis. We will continue monitoring the patient off the antibiotics as per Infectious Disease. Although PCT is elevated, this may be increased in the patients with myocardial infarction. Also chest x-ray does not show pneumonia. Patient does not have fever. White blood cell count is normalized. Urinalysis does not show any pyuria. Blood and urine cultures are negative. Appreciate Dr. Ellis Quintero's input and Dr. Dunlap's input. Trail Maintenance Worker is on the case also. We will follow up. Gricelda Anderson MD [facility] # [id number]
[2017-09-05] MEDS: Enoxaparin 30 mg Syringe SC SCH (09:53)
[2017-09-05] MEDS: Acetylcysteine 20% Inhal Soln (4ml) PO SCH ×2 (09:54→17:57)
[2017-09-05 10:17] LABS: CK-MB 4.1 ng/mL (0.0-3.6)
--- NOTE | 2017-09-05 10:30 | CP.PCM.PN ---
<Janel Seals - Last Filed: 09/05/17 10:30> Subjective - Date & Time of Evaluation Date of Evaluation: 09/05/17 Time of Evaluation: 10:26 - Subjective Subjective: Neurology PGY-[address] Dunlap Pt sits in bed comfortably. No acute complaint Objective - Vital Signs/Intake and Output Vital Signs (last 24 hours): Temp Pulse Resp BP Pulse Ox 98.9 F 80 20 113/58 L 99 09/05/17 06:00 09/05/17 09:54 09/05/17 06:00 09/05/17 09:54 09/05/17 06:00 Intake and Output: 09/05/17 09/05/17 06:59 18:59 Intake Total 480 Output Total 120 Balance 360 - Medications Medications: Current Medications Acetylcysteine (Acetylcysteine 20%) 6 ml PO BID [facility] Stop: 09/07/17 23:59 Last Admin: 09/05/17 09:54 Dose: 6 ml Aspirin (Ecotrin) 81 mg PO DAILY [facility] Last Admin: 09/05/17 09:54 Dose: 81 mg Atorvastatin Calcium (Lipitor) 80 mg PO DIN [facility] Last Admin: 09/04/17 16:56 Dose: 80 mg Carvedilol (Coreg) 3.125 mg PO BID [facility] Last Admin: 09/05/17 09:54 Dose: 3.125 mg Clopidogrel Bisulfate (Plavix) 75 mg PO DAILY [facility] Last Admin: 09/05/17 09:54 Dose: 75 mg Donepezil HCl (Aricept) 10 mg PO DAILY [facility] Last Admin: 09/05/17 09:54 Dose: 10 mg Enoxaparin Sodium (Lovenox) 30 mg SC DAILY [facility] PRN Reason: Protocol Stop: 09/05/17 23:59 Last Admin: 09/05/17 09:53 Dose: 30 mg Glimepiride (Amaryl) 4 mg PO ACBD [facility] Last Admin: 09/05/17 08:21 Dose: 4 mg Sodium Chloride (Sodium Chloride 0.9%) 1,000 mls @ 50 mls/hr IV .Q20H [facility] Insulin Detemir (Levemir) 30 unit SC HS [facility] Last Admin: 09/04/17 22:56 Dose: Not Given Insulin Human Lispro (Humalog) 14 units SC AC [facility] Last Admin: 09/05/17 08:20 Dose: 14 units Insulin Human Regular (Humulin R Med) 0 units SC ACHS [facility] PRN Reason: Protocol Last Admin: 09/05/17 08:21 Dose: 5 units Pantoprazole Sodium (Protonix Susp) 40 mg PO 0600 [facility] Last Admin: 09/05/17 05:00 Dose: Not Given Thiamine HCl (Vitamin B1 Tab) 100 mg PO DAILY [facility] Last Admin: 09/05/17 09:54 Dose: 100 mg - Labs Labs: 09/05/17 06:30 09/05/17 06:30 PT 12.7 SECONDS (9.4-12.5) H 09/03/17 08:30 INR 1.10 (0.93-1.08) H 09/03/17 08:30 APTT 50.5 Seconds (25.1-36.5) H 09/03/17 08:30 - Constitutional Appears: No Acute Distress - Head Exam Head Exam: ATRAUMATIC, NORMAL INSPECTION, NORMOCEPHALIC - Eye Exam Eye Exam: EOMI, Normal appearance, PERRL. absent: Scleral icterus Pupil Exam: NORMAL ACCOMODATION - ENT Exam ENT Exam: Mucous Membranes Moist - Neck Exam Additional comments: supple - Respiratory Exam Respiratory Exam: Clear to Ausculation Bilateral, NORMAL BREATHING PATTERN. absent: Rales, Rhonchi, Wheezes - Cardiovascular Exam Cardiovascular Exam: REGULAR RHYTHM, +S1, +S2, Murmur - GI/Abdominal Exam GI & Abdominal Exam: Soft, Normal Bowel Sounds. absent: Tenderness - Neurological Exam Neurological Exam: Alert, Awake Additional comments: Awake and oriented to self and place Recall 0/3 CN 2-12 intact. No facial asymmetry. Tongue midline Move all extremities 4/5, resting tremor UEs Sensory intact DTR 1+ finger to nose coordination: slightly overshoot plantar downgoing - Psychiatric Exam Psychiatric exam: Normal Affect, Normal Mood - Skin Skin Exam: Dry, Warm Assessment and Plan - Assessment and Plan (Free Text) Plan: Mr Abel Keller, 82 AAM, with PMH demetia on donepazil, CAD, HTN, diabetes, was found confused on the floor by daughter. CT scan showed no bleed, with mild- moderate brain atrophy. 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 Blood pressure was at 90s/50s on admission. Blood glucose was at 500s with lactic acidosis and high anion gap metabolic acidosis. His trops were elevated suggestive of NSTEMI currently s/p heparin gtt. AMS likely due to (1) transient cerebral hypoperfusion from transient hypotension, (2) uncontrolled diabetes, a1c 12, and (3) toxic metabolic encephalopahty effect from JANET, hyperglycemia, DKA, high anion gap metabolic acidosis, and rhabdomyolisis from a fall in the setting of (4) dementia - EEG: normal - maintain SBP 120-130. 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 - continue ASA 81 and lipitor 80 - On plavix for possible NSTEMI s/r/d/w Dr. Dunlap <Qamar Dunlap - Last Filed: 09/05/17 10:44> Objective - Vital Signs/Intake and Output Vital Signs (last 24 hours): Temp Pulse Resp BP Pulse Ox 98.9 F 80 20 113/58 L 99 09/05/17 06:00 09/05/17 09:54 09/05/17 06:00 09/05/17 09:54 09/05/17 06:00 Intake and Output: 09/05/17 09/05/17 06:59 18:59 Intake Total 480 Output Total 120 Balance 360 - Medications Medications: Current Medications Acetylcysteine (Acetylcysteine 20%) 6 ml PO BID [facility] Stop: 09/07/17 23:59 Last Admin: 09/05/17 09:54 Dose: 6 ml Aspirin (Ecotrin) 81 mg PO DAILY [facility] Last Admin: 09/05/17 09:54 Dose: 81 mg Atorvastatin Calcium (Lipitor) 80 mg PO DIN [facility] Last Admin: 09/04/17 16:56 Dose: 80 mg Carvedilol (Coreg) 3.125 mg PO BID [facility] Last Admin: 09/05/17 09:54 Dose: 3.125 mg Clopidogrel Bisulfate (Plavix) 75 mg PO DAILY [facility] Last Admin: 09/05/17 09:54 Dose: 75 mg Donepezil HCl (Aricept) 10 mg PO DAILY [facility] Last Admin: 09/05/17 09:54 Dose: 10 mg Enoxaparin Sodium (Lovenox) 30 mg SC DAILY [facility] PRN Reason: Protocol Stop: 09/05/17 23:59 Last Admin: 09/05/17 09:53 Dose: 30 mg Glimepiride (Amaryl) 4 mg PO ACBD [facility] Last Admin: 09/05/17 08:21 Dose: 4 mg Sodium Chloride (Sodium Chloride 0.9%) 1,000 mls @ 50 mls/hr IV .Q20H [facility] Insulin Detemir (Levemir) 30 unit SC HS [facility] Last Admin: 09/04/17 22:56 Dose: Not Given Insulin Human Lispro (Humalog) 14 units SC AC [facility] Last Admin: 09/05/17 08:20 Dose: 14 units Insulin Human Regular (Humulin R Med) 0 units SC ACHS [facility] PRN Reason: Protocol Last Admin: 09/05/17 08:21 Dose: 5 units Pantoprazole Sodium (Protonix Susp) 40 mg PO 0600 [facility] Last Admin: 09/05/17 05:00 Dose: Not Given Thiamine HCl (Vitamin B1 Tab) 100 mg PO DAILY [facility] Last Admin: 09/05/17 09:54 Dose: 100 mg - Labs Labs: 09/05/17 06:30 09/05/17 06:30 PT 12.7 SECONDS (9.4-12.5) H 09/03/17 08:30 INR 1.10 (0.93-1.08) H 09/03/17 08:30 APTT 50.5 Seconds (25.1-36.5) H 09/03/17 08:30 Attending/Attestation - Attestation I have personally seen and examined this patient.: Yes I have fully participated in the care of the patient.: Yes I have reviewed all pertinent clinical information, including history, physical exam and plan: Yes
--- NOTE | 2017-09-05 13:13 | PN ---
DATE: 09/05/2017 REASON FOR CONSULTATION AND FOLLOWUP: Cardiac evaluation, non-ST segment myocardial infarction, status post DKA, status post altered mental status, now mentally clear, awake and alert x3. SUBJECTIVE: The patient is awake, alert and oriented. Denies any chest pain, shortness of breath, any palpitation. He is going for a cardiac cath tomorrow. OBJECTIVE: GENERAL: Not in any apparent distress. Denies any chest pain. VITAL SIGNS: Temperature afebrile, heart rate 66, blood pressure 115/66. HEENT: PERRLA. Extraocular muscles intact. NECK: Supple. No carotid bruit. No thyromegaly. CHEST: Clear to auscultation. HEART: S1 and S2 regular. ABDOMEN: Soft. EXTREMITIES: Clubbing and cyanosis negative. LABORATORY DATA: Blood workup as follows. WBC 5.1, hemoglobin 8.8, hematocrit 26.6, platelet count 136. Chemistry shows sodium 110, potassium 4, chloride 109, carbon dioxide 24, anion gap of 14 , BUN 41, creatinine 1.3, troponin 0.26, CPK 576. IMPRESSION: Acute kidney injury, acute rhabdomyolysis, non-ST segment myocardial infarction, abnormal stress test, altered mental status improved, diabetic ketoacidosis, metabolic encephalopathy. The patient had echocardiography done. Most recent stress test shows dated 04/10/2017, ejection fraction 43%, abnormal, suspicious of ischemia. The patient had echocardiography done on 09/03/2017 that showed ejection fraction 20-25% four chamber dilatation, trivial aortic regurgitation, [id number] valvular aortic stenosis, fcrm-dm-sagdwshz mitral regurgitation, qnpj-qm-ldhiporq tricuspid regurgitation, right ventricular systolic pressure 42 mmHg. RECOMMENDATION: Continue aspirin. Continue Plavix. Continue Lovenox. Discussed with the patient, the patient agreed for cardiac catheterization tomorrow. We will start IV fluid hydration to prevent kidney injury and Mucomyst 2 today. Keep n.p.o. after midnight for cardiac catheterization and IV fluid to be started at 7:00 p.m. Keep n.p.o. We will get CBC and CMP for tomorrow. Further recommendations after the cardiac catheterization. We will follow with you. Thank you Dr. Anderson for providing us the opportunity in taking care of the patient, Abel Keller. Rasheed Holland MD
[2017-09-05] MEDS: Lidocaine 5% Patch TD SCH (13:18)
--- NOTE | 2017-09-05 13:58 | RAD ---
PROCEDURE: Radiographs of the Left Shoulder HISTORY: Pain. No history of recent/ related trauma provided COMPARISON: No prior. FINDINGS: BONES: Normal. No fracture. JOINTS: Acromioclavicular degenerative changes. Mild glenohumeral degenerative change. SOFT TISSUES: Normal. OTHER FINDINGS: None. IMPRESSION: No acute findings related to/accounting for the clinical presentation.
--- NOTE | 2017-09-05 13:58 | RAD ---
PROCEDURE: Cervical Spine Radiographs. HISTORY: Pain. No history of recent/ related trauma provided COMPARISON: None. FINDINGS: BONES: Alignment maintained. No fracture. Dens Intact. DISC SPACES: Degenerative changes at virtually every level from C2-3 -C6-7. SOFT TISSUES: Normal. No prevertebral soft tissue swelling. OTHER FINDINGS: None. IMPRESSION: Degenerative changes, moderate -severe. No acute findings
--- NOTE | 2017-09-05 13:59 | RAD ---
PROCEDURE: Radiographs of the Right Shoulder HISTORY: pain Prior history trauma. COMPARISON: No prior. FINDINGS: BONES: Normal. No fracture. JOINTS: Mild acromioclavicular degenerative change. Preserved glenohumeral relationship. SOFT TISSUES: Normal. OTHER FINDINGS: None. IMPRESSION: No acute findings related to/accounting for the clinical presentation.
--- NOTE | 2017-09-05 14:42 | CP.PCM.PN ---
<Milena Hastings - Last Filed: 09/05/17 14:38> Subjective - Date & Time of Evaluation Date of Evaluation: 09/05/17 Time of Evaluation: 10:30 - Subjective Subjective: Chief complaint: B/L shoulder pain 82 yr male w/ hstory of HTN, DM II, CAD, arthritis, GERD, CKD, CHF, Dementia and noncompliance. Admitted to [facility] for DKA and sepsis. Today c/o bilateral shoulder pain. Pt denies any headache, fever, chills, nausea, vomiting , abdominal pain, shortness of breath, chest pain, weakness, numbness, tingling , diarrhea, constipation or urinary changes. Objective - Vital Signs/Intake and Output Vital Signs (last 24 hours): Temp Pulse Resp BP Pulse Ox 98.2 F 71 20 100/60 98 09/05/17 12:00 09/05/17 12:00 09/05/17 12:00 09/05/17 12:00 09/05/17 12:00 Intake and Output: 09/05/17 09/05/17 06:59 18:59 Intake Total 480 Output Total 120 Balance 360 - Medications Medications: Current Medications Acetylcysteine (Acetylcysteine 20%) 6 ml PO BID [facility] Stop: 09/07/17 23:59 Last Admin: 09/05/17 09:54 Dose: 6 ml Aspirin (Ecotrin) 81 mg PO DAILY [facility] Last Admin: 09/05/17 09:54 Dose: 81 mg Atorvastatin Calcium (Lipitor) 80 mg PO DIN [facility] Last Admin: 09/04/17 16:56 Dose: 80 mg Carvedilol (Coreg) 3.125 mg PO BID [facility] Last Admin: 09/05/17 09:54 Dose: 3.125 mg Clopidogrel Bisulfate (Plavix) 75 mg PO DAILY [facility] Last Admin: 09/05/17 09:54 Dose: 75 mg Donepezil HCl (Aricept) 10 mg PO DAILY [facility] Last Admin: 09/05/17 09:54 Dose: 10 mg Enoxaparin Sodium (Lovenox) 30 mg SC DAILY [facility] PRN Reason: Protocol Stop: 09/05/17 23:59 Last Admin: 09/05/17 09:53 Dose: 30 mg Glimepiride (Amaryl) 4 mg PO ACBD [facility] Last Admin: 09/05/17 08:21 Dose: 4 mg Sodium Chloride (Sodium Chloride 0.9%) 1,000 mls @ 50 mls/hr IV .Q20H [facility] Insulin Detemir (Levemir) 40 unit SC HS [facility] Insulin Human Lispro (Humalog) 14 units SC AC [facility] Last Admin: 09/05/17 13:15 Dose: 14 units Insulin Human Regular (Humulin R Med) 0 units SC ACHS [facility] PRN Reason: Protocol Last Admin: 09/05/17 13:11 Dose: 3 units Lidocaine (Lidoderm) 1 ea TD DAILY [facility] Last Admin: 09/05/17 13:18 Dose: 1 ea Pantoprazole Sodium (Protonix Susp) 40 mg PO 0600 [facility] Last Admin: 09/05/17 05:00 Dose: Not Given Thiamine HCl (Vitamin B1 Tab) 100 mg PO DAILY [facility] Last Admin: 09/05/17 09:54 Dose: 100 mg - Labs Labs: 09/05/17 06:30 09/05/17 06:30 PT 12.7 SECONDS (9.4-12.5) H 09/03/17 08:30 INR 1.10 (0.93-1.08) H 09/03/17 08:30 APTT 50.5 Seconds (25.1-36.5) H 09/03/17 08:30 - Constitutional Appears: No Acute Distress - Head Exam Head Exam: ATRAUMATIC, NORMAL INSPECTION, NORMOCEPHALIC - Eye Exam Eye Exam: EOMI, Normal appearance, PERRL Pupil Exam: NORMAL ACCOMODATION, PERRL - ENT Exam ENT Exam: Mucous Membranes Moist, Normal Exam - Neck Exam Neck Exam: Full ROM, Normal Inspection. absent: Lymphadenopathy - Respiratory Exam Respiratory Exam: Clear to Ausculation Bilateral, NORMAL BREATHING PATTERN - Cardiovascular Exam Cardiovascular Exam: REGULAR RHYTHM, +S1, +S2. absent: Murmur - GI/Abdominal Exam GI & Abdominal Exam: Soft, Normal Bowel Sounds. absent: Tenderness - Extremities Exam Extremities Exam: Full ROM, Normal Capillary Refill, Normal Inspection. absent : Joint Swelling, Pedal Edema - Back Exam Back Exam: NORMAL INSPECTION - Neurological Exam Neurological Exam: Alert, Awake - Psychiatric Exam Psychiatric exam: Normal Affect, Normal Mood - Skin Skin Exam: Dry, Intact, Normal Color, Warm Assessment and Plan (1) Anemia Status: Acute (2) Dehydration Status: Acute (3) Hematuria Status: Acute (4) Proteinuria Status: Acute (5) Lactic acid acidosis Status: Acute (6) Acute kidney injury Status: Acute (7) DKA (diabetic ketoacidoses) Status: Acute (8) NSTEMI (non-ST elevated myocardial infarction) Status: Acute (9) Sepsis Status: Acute (10) Weakness Status: Acute - Assessment and Plan (Free Text) Plan: Cardiac cath on 09/06. Labs ordered. Xray of R/L shoulder & cervical spine ordered. Cpap q HS. Negative Nose culture, Urine culture, & Blood culture. VTE/ GI prophlyaxis. PT/OT on board. Blood sugar managment: humalog 14 units q ac, levemir 30 units q hs, amaryl 4mg q bid Pain management: lidocaine patch Consults: Endocrine - Dr. Friedman ID - Dr. Mills Pulm - Dr. Dudley Cardio - Dr. Holland Reviewed: EEG = WNL ECHO = EF 20-25%, mild-mod valvular aortic stenosis, mild-mod mitral regrg, mild -mod tricuspid regurg ECG = ABNORMAL, NSR, L axis deviation, ST & T ave abn, consider inferolateral ischemia CT head = probable chronic lacunar infarct L basal ganglia CXR = WNL <Gricelda Anderson - Last Filed: 09/05/17 15:46> Objective - Vital Signs/Intake and Output Vital Signs (last 24 hours): Temp Pulse Resp BP Pulse Ox 98.2 F 71 20 100/60 98 09/05/17 12:00 09/05/17 12:00 09/05/17 12:00 09/05/17 12:00 09/05/17 12:00 Intake and Output: 09/05/17 09/05/17 06:59 18:59 Intake Total 480 Output Total 120 Balance 360 - Medications Medications: Current Medications Acetylcysteine (Acetylcysteine 20%) 6 ml PO BID [facility] Stop: 09/07/17 23:59 Last Admin: 09/05/17 09:54 Dose: 6 ml Aspirin (Ecotrin) 81 mg PO DAILY [facility] Last Admin: 09/05/17 09:54 Dose: 81 mg Atorvastatin Calcium (Lipitor) 80 mg PO DIN [facility] Last Admin: 09/04/17 16:56 Dose: 80 mg Carvedilol (Coreg) 3.125 mg PO BID [facility] Last Admin: 09/05/17 09:54 Dose: 3.125 mg Clopidogrel Bisulfate (Plavix) 75 mg PO DAILY [facility] Last Admin: 09/05/17 09:54 Dose: 75 mg Donepezil HCl (Aricept) 10 mg PO DAILY [facility] Last Admin: 09/05/17 09:54 Dose: 10 mg Enoxaparin Sodium (Lovenox) 30 mg SC DAILY [facility] PRN Reason: Protocol Stop: 09/05/17 23:59 Last Admin: 09/05/17 09:53 Dose: 30 mg Glimepiride (Amaryl) 4 mg PO ACBD [facility] Last Admin: 09/05/17 08:21 Dose: 4 mg Sodium Chloride (Sodium Chloride 0.9%) 1,000 mls @ 50 mls/hr IV .Q20H [facility] Insulin Detemir (Levemir) 40 unit SC HS [facility] Insulin Human Lispro (Humalog) 14 units SC AC [facility] Last Admin: 09/05/17 13:15 Dose: 14 units Insulin Human Regular (Humulin R Med) 0 units SC ACHS [facility] PRN Reason: Protocol Last Admin: 09/05/17 13:11 Dose: 3 units Lidocaine (Lidoderm) 1 ea TD DAILY [facility] Last Admin: 09/05/17 13:18 Dose: 1 ea Pantoprazole Sodium (Protonix Susp) 40 mg PO 0600 [facility] Last Admin: 09/05/17 05:00 Dose: Not Given Thiamine HCl (Vitamin B1 Tab) 100 mg PO DAILY [facility] Last Admin: 09/05/17 09:54 Dose: 100 mg - Labs Labs: 09/05/17 06:30 09/05/17 06:30 PT 12.7 SECONDS (9.4-12.5) H 09/03/17 08:30 INR 1.10 (0.93-1.08) H 09/03/17 08:30 APTT 50.5 Seconds (25.1-36.5) H 09/03/17 08:30 Assessment and Plan - Assessment and Plan (Free Text) Plan: 82 yr male w/ hstory of HTN, DM II, CAD, arthritis, GERD, CKD, CHF, Dementia and noncompliance. Admitted to [facility] for DKA and sepsis. Today c/o bilateral shoulder pain. Pt denies any headache, fever, chills, nausea, vomiting , abdominal pain, shortness of breath, chest pain, weakness, numbness, tingling , diarrhea, constipation or urinary changes.pt is seen and examined at bed side , looking comfortable . agreed all above .chart meds and labs noted , will f/u
--- NOTE | 2017-09-05 17:08 | PN ---
DATE: 09/05/2017 PULMONARY PROGRESS NOTE REFERRING PHYSICIAN: Gricelda Anderson MD SUBJECTIVE: He is lying in the bed, head at 45 degrees. Night was unremarkable. Not much cough. No sputum production. No hemoptysis or hematemesis. No hematuria. No diarrhea reported. OBJECTIVE: VITAL SIGNS: Temperature is 98, heart rate 80, respiratory rate is 20, blood pressure 113/58, pulse ox of 99% on room air. HEENT: Moist mucous membranes. Crowded airway. NECK: Supple. No JVD. LUNGS: Scattered rhonchi. HEART: S1, S2. ABDOMEN: Soft, nontender, no organomegaly. EXTREMITIES: No edema. NEUROLOGICAL: Awake, alert, and follows simple commands. MEDICATIONS: Mucomyst 20% inhaled twice a day, glimepiride 4 mg a.c. b.i.d., Aricept 10 mg daily, Coreg 3.125 mg twice a day, Ecotrin 81 mg daily, insulin coverage, Levemir 30 units subcu at bedtime, Lidoderm patch to the affected area, Lipitor 80 mg daily, Lovenox 30 mg daily, Plavix 75 mg daily, Protonix 40 mg daily, IV fluid normal saline 50 mL/hour, vitamin B 100 mg daily. LABORATORY DATA: Shows hemoglobin 8.8, hematocrit 26.6, and WBC 5.4, platelets 136. Sodium 138, potassium 4.0, chloride 109, bicarbonate 24. BUN 41 and creatinine 1.3. Glucose 269. Calcium is 8.9. LDH 805. Troponin 0.26. IMPRESSION AND PLAN: Status post diabetic ketoacidosis secondary to noncompliance, cardiomyopathy, pulmonary hypertension, hypertension, now sleep apnea syndrome. Being followed by Cardiology, Neurology. Keep head elevated at 45 degrees. Encouraged BiPAP use at night. Avoid nocturnal sedation. Follow up sleep study as outpatient. Thank you and we will follow with you. Rasheed Little MD
[2017-09-05] MEDS ORDERED: Sodium Chloride 0.9% 1,000 ML IV SCH (19:00)
[2017-09-05] MEDS ORDERED: Insulin Detemir 100 units/ml Vial (Levemir) SC SCH (22:00)
--- NOTE | 2017-09-05 23:22 | PN ---
DATE: ENDOCRINOLOGY FOLLOWUP NOTE LOCATION: Room 378. SUBJECTIVE: This is an 82-year-old male with recent uncontrolled type 2 insulin-requiring diabetes presenting here with diabetic ketoacidosis and dehydration and has now improved clinically and metabolically as noted thereof. He received vigorous IV hydration and intensive insulin therapy in the ICU as noted. His glycemic fluctuations are improving and the glucose values today have ranged from 203 to 269 mg/dL. His latest chemistry showed a BUN of 41, sodium 138, potassium 4.0, chloride 109, CO2 24, glucose 277 and creatinine 1.3. So at this time, we will modify once again his basal and bolus insulin regimen and increase the Levemir to 40 units subcu at bedtime daily to start tonight. We will continue the Humalog given as 14 units subcu t.i.d. before meals as ordered. We will titrate incrementally as indicated to optimize metabolic control. We will continue the Amaryl given as 4 mg b.i.d. as ordered. We will follow and advise accordingly. Raine Friedman MD
[2017-09-06] MEDS ORDERED: Lidocaine 2% Inj (20ml) ONE (07:29)
[2017-09-06] MEDS ORDERED: Phenylephrine 10 mg/ml Inj ONE (07:29)
[2017-09-06] MEDS ORDERED: HEPARIN SODIUM/NS 2,000 ML IV ONE (07:29)
[2017-09-06] MEDS ORDERED: Iodixanol 320 MG/ML 200 ML BOTTLE IV ONE (07:29)
[2017-09-06 07:46] LABS: BASO # 0.01 K/mm3 (0.0-2.0); BASO % 0.2 % (0.0-3.0); EOS # 0.2 (0.0-0.7); EOS % 4.1 % (1.5-5.0); GRAN # 2.04 (1.4-6.5); GRAN % 41.6 % (50.0-68.0); HEMOGLOBIN 8.9 g/dL (14.0-18.0); LYMPH # 2.2 (1.2-3.4); LYMPH % 43.9 % (22.0-35.0); MEAN CELL VOLUME 83.4 fl (80.0-105.0); MEAN CORPUSCULAR HEMOGLOBIN 27.3 pg (25.0-35.0); MEAN CORPUSCULAR HGB CONC 32.7 g/dl (31.0-37.0); MEAN PLATELET VOLUME 10.1 fl (7.0-11.0); MONO # 0.5 (0.1-0.6); MONO % 10.2 % (1.0-6.0); RBC 3.26 10^6/uL (3.5-6.1); RED CELL DISTRIBUTION WIDTH 15.8 % (11.5-14.5); WHITE BLOOD COUNT 4.9 10^3/ul (4.5-11.0)
[2017-09-06 07:52] LABS: INR 0.99 (0.93-1.08); PROTHROMBIN TIME 11.4 SECONDS (9.4-12.5)
[2017-09-06 07:58] LABS: BLOOD UREA NITROGEN 35 mg/dL (7-21); GFR AFRICAN-AMERICAN > 60; GFR NON-AFRICAN AMERICAN 58
[2017-09-06] MEDS: Acetylcysteine 20% Inhal Soln (4ml) PO SCH ×3 (08:12→17:27)
[2017-09-06] MEDS: Insulin Lispro 1 UNITS/0.01 ML SC SCH ×3 (08:49→17:28)
[2017-09-06] MEDS: Insulin Reg-MEDIUM-Coverage SC SCH ×2 (08:50→12:30)
[2017-09-06] MEDS: Pantoprazole 40 mg Susp UD PO SCH (08:53)
[2017-09-06] MEDS ORDERED: Midazolam 2 MG/2 ML VIAL ONE (10:21)
[2017-09-06] MEDS ORDERED: Sodium Chloride 0.9% 1,000 ML IV SCH (11:00)
--- NOTE | 2017-09-06 13:42 | PN ---
DATE: 09/06/2017 REASON FOR CONSULTATION AND FOLLOWUP: Cardiac evaluation; [id number] myocardial infarction; status post DKA; status post altered mental status, now patient is mentally clear; status post abnormal stress test, status post cardiac cath; nonobstructive coronary artery disease. SUBJECTIVE: Patient denies any chest pain, shortness of breath, or any palpitation. OBJECTIVE: GENERAL: Not in apparent distress. VITAL SIGNS: Temperature afebrile, heart rate 60, blood pressure 111/64. HEENT: PERRLA. Extraocular muscles intact. NECK: Supple. No carotid bruits or thyromegaly. CHEST: Clear to auscultation. HEART: S1 and S2, regular. ABDOMEN: Soft. EXTREMITIES: Clubbing and cyanosis negative. LABORATORY DATA: Blood workup as follows: WBC 4.9, hemoglobin 8.9, hematocrit 27.2, and platelet count 150. Chemistry shows sodium 140, potassium 3.9, chloride 110, carbon dioxide 26, anion gap of 11, BUN 35, creatinine 1.2. IMPRESSION: Cardiomyopathy, four chamber dilatation, significantly decreased left ventricular function; status post diabetic ketoacidosis; status post [id number] myocardial infarction; acute kidney injury; acute rhabdomyolysis; altered mental status, improved; diabetic ketoacidosis, status post metabolic encephalopathy. Last stress test 04/10/2017. Ejection fraction of 43%, abnormal, suspicious of ischemia. The patient had echocardiography on 09/03/2017, that showed ejection fraction 20% to 25%, four chamber dilatation, trivial aortic regurgitation, [id number]-[id number] valvular aortic stenosis, wokj-fs-wnfavxob mitral regurgitation, qubn-bp-dfnohcan tricuspid regurgitation, right ventricular systolic pressure of 42 mmHg. Patient underwent cardiac catheterization, this morning that reveal short left main or 2 separate ostium of LAD and circumflex. LAD has a long tubular from 60% to 70% proximal to mid stenosis. Circumflex is a large dominant vessel essentially free of significant disease. RCA is a non-dominant small artery stenosis. LV gram shows ejection fraction of 20% to 25%. EDP was in the range of 35. Medical treatment recommended. We will put Coreg, continue aspirin, discontinue Plavix. If the renal function remains stable, we will start ramipril 1.25 mg tomorrow. We will start Lasix 40 mg daily. We will not give digoxin because the patient has forgetfulness and can take extra dose of digoxin and can get toxic. Follow up the renal function. We will hydrate for the next 12 hours. The patient's hydration was started last night at 7 p.m. and will continue it until 7 p.m. for 24 hours hydration. We will follow with you. Medical treatment is recommended. Thank you Dr. Anderson for providing us the opportunity in taking care of the patient, Abel Keller. Rasheed Holland MD
--- NOTE | 2017-09-06 17:26 | CARD ---
APPROVED REPORT Procedure(s) performed: Left Heart Catheterization HISTORY The patient is a 82 year-old male with a history of : most recent EF: 43%. (EF Method: RADIONUCLIDE), diabetes mellitus with insulin treatment , tobacco history() : The patient is a former smoker , hypertension , dyslipidemia , Hx of ETOH abuse in the past.. INDICATION The indication(s) include : positive stress test, dyspnea. CASE TECHNIQUE The patient was brought electively to the Cardiac Catheterization Laboratory in a fasting state and was prepped and draped in a sterile manner. The right femoral groin was infiltrated with 2% Lidocaine subcutaneous anesthesia. A 6 Fr x 11 cm Liberty sheath was inserted into the right femoral artery without difficulty. Coronary angiography was performed using coronary diagnostic catheters. The left coronary system was accessed and visualized with a Diagnostic ,6 Fr Performa JL 4 catheter. The right coronary system was accessed and visualized with a Diagnostic ,6 Fr Performa JR 4 catheter. The left ventricle was accessed and visualized with a 6 Fr Performa Pigtail 145 catheter. Left ventricular/Aortic Valve gradient assessed on pullback. Left ventriculogram was performed in HORTON projection. Closure device was deployed with a 6 Fr / 7 Fr MynxGrip without any complications. The patient tolerated the procedure well and there were no complications associated with the procedure. Vessel Analysis The patient's coronary anatomy is left dominant. The left main coronary artery is a medium size vessel with diffuse calcification noted throughout this vessel and without significant stenosis. There is a 30% stenosis in the distal segment. The left main bifurcates to the left anterior descending and circumflex. The left anterior descending artery is a medium size vessel with diffuse calcification noted throughout this vessel and without significant stenosis. There is a 70% stenosis in the mid segment. long tubular stenosis The first diagonal branch is a medium size vessel with diffuse calcification noted throughout this vessel and without significant stenosis. The second diagonal branch is a medium size vessel with diffuse calcification noted throughout this vessel and without significant stenosis. The circumflex artery is a medium size vessel with diffuse calcification noted throughout this vessel and without significant stenosis. The first obtuse marginal branch is a small size vessel with diffuse calcification noted throughout this vessel and without significant stenosis. The second obtuse marginal branch is a medium size vessel with diffuse calcification noted throughout this vessel and without significant stenosis. The left posterior descending artery is a medium size vessel with diffuse calcification noted throughout this vessel and without significant stenosis. The right coronary artery is a small size vessel with diffuse calcification noted throughout this vessel and with significant stenosis. There is a 60-70% stenosis in the ostial segment. Left Ventricle The left ventricle is mild to moderately enlarged in size with moderately decreased contractility. Non-Ischemic cardiomyopathy. The left ventricular ejection fraction is estimated to be 20-25%. The left ventricular end diastolic pressure is 30-35 mmHg. There was no gradient across the aortic valve upon pullback. Conclusion Severely decreased LV Fx. EF-20-25%.edp-30-35 mmof hg. Moderate disease in Mid LAD. Recommendations Aggressive Medical TherapyCardiac Risk Reduction Program Diuretic, SOLOMON, Coreg as BP is tolerated Re assess Lv Fx in 3-6 months if remains <35%, consiser ANDREW. CC; Dr. Anderson/ Jordan.
[2017-09-06] MEDS: Insulin Lispro (humaLOG) LOW Coverage SC SCH ×2 (17:29→22:08)
--- NOTE | 2017-09-06 20:26 | PN ---
DATE: ENDOCRINOLOGY FOLLOWUP NOTE LOCATION: In Room 273. SUBJECTIVE: This is an 82-year-old male with recent uncontrolled type 2 insulin-requiring diabetes, now with extremes of glycemic fluctuations related to the variability of his oral intake with suboptimal meal portions as noted thereof. His glucose values overnight dropped to 36 and then 55 mg/dL. The latest glucose at noon time today was 138 mg/dL. The latest chemistries showed a BUN of 35, sodium 140, potassium 3.9, chloride 107, CO2 of 26, glucose 72 and creatinine 1.2. So at this time, we will modify once again his basal and bolus insulin regimen to adjust the variability of his oral intake and lower the Humalog to 6 units subcu t.i.d. before meals to start at dinner time today as ordered. We will also lower the Levemir given as basal insulin to 20 units subcu at bedtime daily to start tonight. We will titrate incrementally as indicated to optimize metabolic control. We will obtain serial chemistries and supplement accordingly needed. We will follow this. Raine Friedman MD
[2017-09-06] MEDS ORDERED: Insulin Detemir 100 units/ml Vial (Levemir) SC SCH (22:00)
--- NOTE | 2017-09-06 23:59 | PN ---
DATE: 09/06/2017 PULMONARY PROGRESS NOTE REFERRING PHYSICIAN: Gricelda Anderson MD. SUBJECTIVE: The patient is lying in the bed, head at 45 degrees. Night was unremarkable. Had a cardiac cath done with diffuse coronary disease. Recommended medical care. No nausea, no vomiting. No diarrhea, leg pain, leg swelling. OBJECTIVE: GENERAL: In no acute distress. VITAL SIGNS: Temperature 98, heart rate 63, respiratory rate is 18, blood pressure 152/82, pulse ox 94% on room air. HEENT: Moist mucous membrane. Crowded airway. Mallampati score is 4. NECK: Supple. No JVD. LUNGS: Have a fair airflow with few rhonchi. HEART: S1 and S2. ABDOMEN: Soft, nontender. No organomegaly. EXTREMITIES: There is no edema. NEUROLOGIC: Awake, alert. Follows simple command. MEDICATIONS: He is on Mucomyst 20% inhaled twice a day, Altace 1.25 mg daily, glimepiride 4 mg before meals b.i.d., Aricept 10 mg daily, Coreg 3.125 mg twice a day, Ecotrin 81 mg daily, insulin coverage, Lasix 40 mg daily, Levemir 20 units subcu at bedtime, lidocaine patch to affected area daily, Lipitor 80 mg daily, Protonix 40 mg daily, vitamin B1 at 100 mg daily. LABORATORY DATA: Shows hemoglobin 8.9, hematocrit 27.2, WBC 4.9, platelet is 150. INR 0.9. Sodium 140, potassium 3.9, chloride 107, bicarbonate 26, BUN 35, creatinine 1.2, glucose 72, calcium is 9.0. 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 IMPRESSION AND PLAN: Status post diabetic ketoacidosis secondary to noncompliant, cardiomyopathy, coronary artery disease, pulmonary retention, hypertension, may have sleep apnea syndrome. Life modification, diet modification for cardiac disease. Arrhythmia precaution. Outpatient sleep study. Avoid nocturnal sedative. Followup echocardiogram to assess the left ventricular function. May need automatic implantable cardioverter-defibrillator. Thank you and we will follow with you. Rasheed Little MD
[2017-09-07] MEDS: Pantoprazole 40 mg Susp UD PO SCH (05:27)
[2017-09-07 06:44] VITALS: O2SAT 98
[2017-09-07 06:59] LABS: BASO # 0.01 K/mm3 (0.0-2.0); BASO % 0.2 % (0.0-3.0); EOS # 0.2 (0.0-0.7); EOS % 3.2 % (1.5-5.0); GRAN # 2.43 (1.4-6.5); GRAN % 46.1 % (50.0-68.0); HEMOGLOBIN 9.7 g/dL (14.0-18.0); LYMPH % 38.4 % (22.0-35.0); MEAN CELL VOLUME 84.8 fl (80.0-105.0); MEAN CORPUSCULAR HEMOGLOBIN 26.9 pg (25.0-35.0); MEAN CORPUSCULAR HGB CONC 31.7 g/dl (31.0-37.0); MEAN PLATELET VOLUME 10.7 fl (7.0-11.0); MONO # 0.6 (0.1-0.6); MONO % 12.1 % (1.0-6.0); RBC 3.61 10^6/uL (3.5-6.1); RED CELL DISTRIBUTION WIDTH 15.7 % (11.5-14.5); WHITE BLOOD COUNT 5.3 10^3/ul (4.5-11.0)
[2017-09-07 07:04] LABS: BLOOD UREA NITROGEN 30 mg/dL (7-21); GFR AFRICAN-AMERICAN > 60; GFR NON-AFRICAN AMERICAN 58
[2017-09-07] MEDS: Insulin Lispro (humaLOG) LOW Coverage SC SCH ×4 (08:15→23:48)
[2017-09-07] MEDS: Insulin Lispro 1 UNITS/0.01 ML SC SCH ×2 (08:20→12:33)
--- NOTE | 2017-09-07 09:43 | PN ---
DATE: 09/06/2017 SUBJECTIVE: The patient is an 82-year-old male. The patient seen and examined on the bedside. Looking comfortable. I saw him status post catheterization. No fever. No chills. No nausea, vomiting or diarrhea. No hematuria or hematochezia. No swelling of the legs. No chest pain or palpitation. No headache, no dizziness. No fever, no chills. PHYSICAL EXAMINATION: VITAL SIGNS: Temperature 98.6, heart rate 60, blood pressure 150/64. HEENT: Head is normocephalic, atraumatic. Eyes: PERRLA. Extraocular muscles are intact. Conjunctivae are clear. Nose is patent. Mucous membranes are moist. NECK: Supple. No carotid bruits. No JVD or thyromegaly. CHEST: Bilaterally symmetrical. HEART: S1 and S2 positive. LUNGS: Clear to auscultation. ABDOMEN: Soft. Bowel sounds present. No organomegaly. EXTREMITIES: No edema. No cyanosis. LABORATORY DATA: White blood cells 4.9, hemoglobin 8.9, hematocrit 37.2, platelets 150. Sodium 140, potassium 3.9, BUN 35, creatinine 1.2. 126. ASSESSMENT AND PLAN: Mr. Bubba Roman is an 82-year-old male with multiple medical problems, had cardiomyopathy, four chamber dilatation, and still continue to have decreased left ventricular function, status post diabetic ketoacidosis, status post known ST segment myocardial infarction, acute kidney injury, acute rhabdomyolysis, altered mental status - improved, diabetic ketoacidosis - status post metabolic encephalopathy. Today, the patient went for cardiac catheterization. Results are pending. According to Dr. Holland, severe decreased left ventricular ejection fraction of 20%-25%, morbid decrease of mild LAD , aggressive medical therapy, cardiac risk reduction program, diuretics, SOLOMON inhibitors, Coreg, blood pressure is to be tolerated. Reassess the left ventricular ejection fraction later this month. If remains less than 35, consider AICD. Discussion done with Dr. Holland. Gastrointestinal and deep venous thrombosis prophylaxes, repeat labs. Cervical spine x-ray done showed degenerative changes - moderate to severe, no acute findings. We will follow up. We will give physical therapy. Gricelda Anderson MD MTDD
[2017-09-07] MEDS: Acetylcysteine 20% Inhal Soln (4ml) PO SCH ×2 (10:55→18:17)
[2017-09-07] MEDS: Lidocaine 5% Patch TD SCH (10:57)
--- NOTE | 2017-09-07 12:05 | CP.PCM.PN ---
Subjective - Date & Time of Evaluation Date of Evaluation: 09/07/17 Time of Evaluation: 10:00 - Subjective Subjective: Had cardiac cath done, no fevers, not in distress. Objective - Vital Signs/Intake and Output Vital Signs (last 24 hours): Temp Pulse Resp BP Pulse Ox 98.2 F 64 20 132/63 98 09/07/17 06:00 09/07/17 06:00 09/07/17 06:00 09/07/17 06:00 09/07/17 06:00 Intake and Output: 09/07/17 09/07/17 06:59 18:59 Intake Total 570 Output Total 700 Balance -130 - Medications Medications: Current Medications Acetylcysteine (Acetylcysteine 20%) 6 ml PO BID [facility] Stop: 09/07/17 23:59 Last Admin: 09/06/17 17:27 Dose: 6 ml Aspirin (Ecotrin) 81 mg PO DAILY [facility] Last Admin: 09/06/17 09:59 Dose: Not Given Atorvastatin Calcium (Lipitor) 80 mg PO DIN [facility] Last Admin: 09/06/17 17:28 Dose: 80 mg Carvedilol (Coreg) 3.125 mg PO BID [facility] Last Admin: 09/06/17 17:28 Dose: 3.125 mg Donepezil HCl (Aricept) 10 mg PO DAILY [facility] Last Admin: 09/06/17 12:00 Dose: 10 mg Furosemide (Lasix) 40 mg PO DAILY [facility] Glimepiride (Amaryl) 4 mg PO ACBD [facility] Last Admin: 09/07/17 08:21 Dose: 4 mg Insulin Detemir (Levemir) 20 unit SC HS [facility] Last Admin: 09/06/17 22:16 Dose: Not Given Insulin Human Lispro (Humalog Low) 0 units SC ACHS [facility] PRN Reason: Protocol Last Admin: 09/07/17 08:15 Dose: Not Given Insulin Human Lispro (Humalog) 6 units SC AC [facility] Last Admin: 09/07/17 08:20 Dose: 6 units Lidocaine (Lidoderm) 1 ea TD DAILY [facility] Last Admin: 09/05/17 13:18 Dose: 1 ea Pantoprazole Sodium (Protonix Susp) 40 mg PO 0600 [facility] Last Admin: 09/07/17 05:27 Dose: 40 mg Ramipril (Altace) 1.25 mg PO DAILY [facility] Thiamine HCl (Vitamin B1 Tab) 100 mg PO DAILY [facility] Last Admin: 09/06/17 12:30 Dose: 100 mg - Labs Labs: 09/07/17 05:30 09/07/17 05:30 PT 11.4 SECONDS (9.4-12.5) 09/06/17 07:00 INR 0.99 (0.93-1.08) 09/06/17 07:00 APTT 50.5 Seconds (25.1-36.5) H 09/03/17 08:30 - Constitutional Appears: Chronically Ill - Head Exam Head Exam: NORMAL INSPECTION - Respiratory Exam Respiratory Exam: Decreased Breath Sounds - Cardiovascular Exam Cardiovascular Exam: +S1, +S2 - GI/Abdominal Exam GI & Abdominal Exam: Soft. absent: Tenderness Assessment and Plan - Assessment and Plan (Free Text) Plan: Assessment S/P systemic inflammatory response syndrome, consider due to acute rhabdomyolysis after a fall, with acute myocardial infarction S/P acute toxic- metabolic encephalopathy; no source of infection identified; patient is S/P percutaneous coronary intervention HTN DM CAD arthritis Plan Will continue to monitor the patient off antibiotics since he is at risk for nosocomial infections
[2017-09-07 12:26] VITALS: RESP 19; TEMP 98.1
[2017-09-07] MEDS ORDERED: Insulin Lispro 1 UNITS/0.01 ML SC SCH (16:30)
[2017-09-07 18:21] VITALS: BP 123/64; PULSE 65
[2017-09-07] MEDS ORDERED: Insulin Detemir 100 units/ml Vial (Levemir) SC SCH ×2 (22:00)
--- NOTE | 2017-09-08 01:04 | PN ---
DATE: 09/07/2017 PULMONARY PROGRESS NOTE REFERRING PHYSICIAN: Gricelda Anderson MD. SUBJECTIVE: He is lying in the bed, head at 45 degrees. Night was unremarkable. No headache. No rhinitis. No nausea, no vomiting, no diarrhea. No leg pain or leg swelling. OBJECTIVE: GENERAL: In no acute distress. VITAL SIGNS: Temperature 98, heart rate is 65, respiratory rate is 20, blood pressure 123/64, pulse ox 98% on room air. HEENT: Moist mucous membrane. Crowded airway. NECK: Supple. No JVD. LUNGS: Fair airflow with few rhonchi. HEART: S1 and S2. ABDOMEN: Soft, nontender. No organomegaly. EXTREMITIES: No edema. NEUROLOGICAL: Awake, alert, and follows simple commands. MEDICATIONS: He is on Mucomyst 20% inhaled twice a day, Altace 1.25 mg daily, 4 mg a.c. b.i.d., Aricept 10 mg daily, Coreg 3.125 mg twice a day, Ecotrin 81 mg daily, insulin coverage, Lasix 40 mg daily, Levemir 20 units subcu at bedtime, Lidocaine daily, Lipitor 80 mg daily, Protonix 40 mg daily, vitamin B1 at 100 mg daily. LABORATORY DATA: Shows hemoglobin 9.7, hematocrit 30.6, WBC 5.3, platelet is 174. Sodium 136, potassium 4.1, chloride 100, bicarbonate 28, BUN 30, creatinine 1.2, glucose 252, calcium is 9.0. Microbiology: Blood culture, urine culture, and nasal unremarkable. IMPRESSION AND PLAN: Status post diabetic ketoacidosis secondary to noncompliance, cardiomyopathy, coronary artery disease, pulmonary hypertension, may have sleep apnea syndrome. Pulmonary point of view, keep head at 45 degrees, bronchodilator, gastric prophylaxis, deep venous thrombosis prophylaxes. Need followup echocardiogram to assure the stability of left ventricular function. May need automatic implantable cardioverter-defibrillator. Need sleep study upon discharge as outpatient. Will need attentive sleep study because of sever cardiomyopathy, risk of arrhythmias. Thank you and we will follow with you. Rasheed Little MD
--- NOTE | 2017-09-08 02:02 | PN ---
DATE: ENDOCRINOLOGY FOLLOWUP LOCATION: In room 273. SUBJECTIVE: This is a 82-year-old male with recent uncontrolled type 2 insulin-requiring diabetes, presenting here with diabetic ketoacidosis and dehydration, and has since then improved clinically and metabolically as noted thereof. His oral intake remains quite variable as per the nursing staff and actually they held the bedtime Levemir last night, even when he achieved normal glycemic profile with expected fasting hyperglycemia this morning. His glucose values have ranged from 248 to 264 mg/dL. His latest chemistry showed a BUN of 30, sodium 136, potassium 4.1, chloride 100, CO2 of 28, glucose 252 and creatinine 1.2. ASSESSMENT AND PLAN: So at this time, we will continue the same basal insulin given as Levemir at 20 units subcu at bedtime daily as ordered. We will increase the Humalog to 10 units subcu t.i.d. before meals as ordered. We will continue also the low-dose correction scale using Humalog insulin as given. Moreover, we will continue the Amaryl given as 4 mg b.i.d. before meals as ordered. We will titrate incrementally as indicated to optimize metabolic control. We will follow. Raine Friedman MD
--- NOTE | 2017-09-08 05:09 | PN ---
DATE: The patient is an 82-year-old male. SUBJECTIVE: The patient is seen and examined at the bedside, looking comfortable. Status post cardiac catheterization. No fever. No chills. No nausea, vomiting, or diarrhea. No hematuria or hematochezia. No swelling of the legs. No chest pain. No palpitation. No headache or dizziness. PHYSICAL EXAMINATION VITAL SIGNS: Temperature 98.2, pulse 64, respiratory rate 20, blood pressure 132/66, and pulse oximetry 98%. HEENT: Head: Normocephalic, atraumatic. Eyes: PERRLA. Extraocular movements intact. Conjunctivae clear. Nose patent. Mucous membranes are moist. NECK: Supple. No carotid bruits, JVD, or thyromegaly. CHEST: Bilaterally symmetrical. HEART: S1 and S2 positive. LUNGS: Clear to auscultation. ABDOMEN: Soft. Bowel sounds are present. No organomegaly. EXTREMITIES: No edema. No cyanosis. NEUROLOGIC: The patient is awake and alert. Moving all 4 extremities with no focal deficit. LABORATORY DATA: White blood cells 5.3. hemoglobin 9.7, hematocrit 30.6, and platelets 174,000. Sodium 136, potassium 4.1, BUN 30, creatinine 1.2, and glucose 252. MEDICATIONS: Aspirin, atorvastatin, Coreg, Aricept. Lasix, Amaryl, Levemir, lispro, Lidoderm, Protonix, and Altace. ASSESSMENT AND PLAN: Mr. Abel Roman is an 82-year-old male with anemia, renal insufficiency, hyperglycemia, has systemic inflammatory response syndrome - maybe due to acute rhabdomyolysis after a fall with acute myocardial infarction, status post acute toxic metabolic encephalopathy, status post percutaneous coronary intervention, hypertension, coronary artery disease, and arthritis. We will continue to maintain the patient off the antibiotics since he is at risk of nosocomial infection. Dr. Little, senior systems developer and pulp press tender is on the case. Status post diabetic ketoacidosis secondary to noncompliance, cardiomyopathy. Pulmonary hypertension. Sleep apnea syndrome. Diet and exercise. Arrhythmia precautions. Outpatient sleep study. avoid nocturnal sedative. Followup echocardiogram to assess the left ventricular function. He will need automatic implantable cardioverter-defibrillator. Repeat labs. We will follow. Gricelda Anderson MD [facility]
--- NOTE | 2017-09-08 17:14 | PN ---
DATE: ENDOCRINOLOGY FOLLOWUP NOTE LOCATION: Room 273. SUBJECTIVE: This is an 82-year-old male with recent uncontrolled type 2 insulin-requiring diabetes, now being followed closely for metabolic management. His glycemic levels are fluctuating as noted because of the variability of his oral intake and the glucose levels have ranged today from 284 to 286 mg/dL. His latest chemistries showed a BUN of 30, sodium 136, potassium 4.1, chloride 100, CO2 of 28, glucose 252, and creatinine 1.2. So, at this time, we will continue the same basal and bolus insulin drug combination with Humalog given as 10 units subcu t.i.d. before meals and Levemir at 20 units subcu at bedtime daily as given. We will titrate incrementally as indicated to optimize metabolic control. We will follow. Raine Friedman MD
== END 2017-09-08 04:40 | DRG 871 ==
LOC: ED 13:53 → ERH 15:49 → CCU 19:22 → 3RSO 09-04 21:12 → 2RSO 09-06 11:13 → UNDODISIN 09-08 00:15
PROVIDERS: ADMIT Internal Medicine; ATTEND Internal Medicine
DX: A41.9 Sepsis, unspecified organism (principal); I21.4 Non-ST elevation (NSTEMI) myocardial infarction; E11.00 Type 2 diabetes mellitus with hyperosmolarity without nonketotic hyperglycemic-hyperosmolar coma (NKHHC); G92 Toxic encephalopathy; N17.9 Acute kidney failure, unspecified; E11.10 Type 2 diabetes mellitus with ketoacidosis without coma; I13.0 Hypertensive heart and chronic kidney disease with heart failure and stage 1 through stage 4 chronic kidney disease, or unspecified chronic kidney disease; I42.9 Cardiomyopathy, unspecified; M62.82 Rhabdomyolysis; W19.XXXA Unspecified fall, initial encounter; E11.22 Type 2 diabetes mellitus with diabetic chronic kidney disease; E11.42 Type 2 diabetes mellitus with diabetic polyneuropathy; D64.9 Anemia, unspecified; E11.319 Type 2 diabetes mellitus with unspecified diabetic retinopathy without macular edema; E11.51 Type 2 diabetes mellitus with diabetic peripheral angiopathy without gangrene; E78.00 Pure hypercholesterolemia, unspecified; E78.5 Hyperlipidemia, unspecified; E86.0 Dehydration; E87.5 Hyperkalemia; E87.8 Other disorders of electrolyte and fluid balance, not elsewhere classified; F03.90 Unspecified dementia, unspecified severity, without behavioral disturbance, psychotic disturbance, mood disturbance, and anxiety; G47.30 Sleep apnea, unspecified; I25.10 Atherosclerotic heart disease of native coronary artery without angina pectoris; I25.2 Old myocardial infarction; I27.20 Pulmonary hypertension, unspecified; I50.9 Heart failure, unspecified; I77.1 Stricture of artery; K21.9 Gastro-esophageal reflux disease without esophagitis; M19.90 Unspecified osteoarthritis, unspecified site; N18.9 Chronic kidney disease, unspecified; Y92.009 Unspecified place in unspecified non-institutional (private) residence as the place of occurrence of the external cause; Z79.4 Long term (current) use of insulin; Z87.891 Personal history of nicotine dependence; Z91.14 Patient's other noncompliance with medication regimen; Z91.19 Patient's noncompliance with other medical treatment and regimen; Z98.61 Coronary angioplasty status